=== PATIENT | female | born 1955 | race Caucasian/White ===

== ENCOUNTER → 2017-02-06 | Outpatient (CLI) | payer MEDICAID ==
[2016-03-12 05:44] VITALS: BP 136/66
== END ==
LOC: RAD 13:23
PROVIDERS: ATTEND Obstetrics & Gynecology Obstetrics
DX: Z12.31 Encounter for screening mammogram for malignant neoplasm of breast (principal)
CPT/HCPCS: 77067

== ENCOUNTER → 2017-03-30 | Outpatient (CLI) | payer MEDICAID ==
[2016-03-12 05:44] VITALS: BP 136/66
[2017-03-30 16:05] LABS: CREATININE,URINE 15.08 mg/dL (29-226); MICROALBUMIN,URINE 4.7 mg/L
[2017-03-30 16:24] LABS: ALANINE AMINOTRANSFERASE 20 Units/L (12-78); ALBUMIN 3.4 g/dL (3.4-5.0); ALKALINE PHOSPHATASE 89 Units/L (46-116); ASPARTATE AMINO TRANSFERASE 13 Units/L (15-37); BLOOD UREA NITROGEN 11 mg/dL (7-18); CALCIUM 8.8 mg/dL (8.5-10.1); CARBON DIOXIDE 27.2 mmol/L (21-32); CHLORIDE 105 mmol/L (98-107); CHOL/HDL RATIO 2.4 (0.0-5.0); CHOLESTEROL 137 mg/dL (0-200); CREATININE 0.97 mg/dL (0.55-1.02); GLUCOSE 95 mg/dL (65-99); HDL CHOLESTEROL 57 mg/dL (40-60); SODIUM 141 mmol/L (136-145); TOTAL PROTEIN 7.4 g/dL (6.4-8.2); TRIGLYCERIDES 94 mg/dL (0-150); eGFR BLACK RACES > 60 (>60); eGFR NON BLACK RACES > 60 (>60)
== END ==
LOC: LAB 15:25
PROVIDERS: ATTEND Obstetrics & Gynecology Obstetrics
DX: E11.9 Type 2 diabetes mellitus without complications (principal)
CPT/HCPCS: 36415; 80053; 80061; 82043; 83036

== ENCOUNTER → 2017-05-05 | Outpatient (CLI) | payer MEDICAID ==
[2016-03-12 05:44] VITALS: BP 136/66
--- NOTE | 2017-05-08 09:53 | MRI ---
HISTORY: Degenerative disc disease, radiculopathy Study: MRI lumbar spine without contrast Comparison: None Technique: Multiplanar multi-sequence MRI of the lumbar spine was obtained. Sagittal T1, sagittal T 2, and stir weighted images, axial T1, and axial T2 images were obtained. Findings: There is slight retrolisthesis L2 on L3. The lumbar spine demonstrates otherwise normal alignment wi th the expected signal characteristics of the bone marrow. The conus of the cord terminates normall y. T12 -- L1: There is a small central disc protrusion which is not significantly compressive. The neur al foramina are patent. The joints are normal. L1 -- L2: No evidence for compressive disc disease. The neural foramina are patent. The joints are n ormal. L2 -- L3: There is marked disc degeneration with slight retrolisthesis L2 on L3. This contributes al yobany with broad-based disc bulging, bilateral facet arthropathy to lateral recess and foraminal narro wing bilaterally left worse than right. L3 -- L4: Mild concentric disc bulging effaces the thecal sac and contributes to lateral recess and foraminal narrowing bilaterally left worse than right. L4 -- L5: No evidence for compressive disc disease. The neural foramina are patent. Mild bilateral f acet arthropathy is present. L5 -- S1: A dense for compressive disc disease. The neural foramina are patent. Mild bilateral facet arthropathy is present. IMPRESSION: As above Reported By:
== END ==
LOC: RAD 14:56
PROVIDERS: ATTEND Obstetrics & Gynecology Obstetrics
DX: M51.16 Intervertebral disc disorders with radiculopathy, lumbar region (principal)
CPT/HCPCS: 72148

== ENCOUNTER 2017-11-03 15:33 | Inpatient (IN) | payer MEDICAID ==
[2017-11-03] MEDS ORDERED: NS 1000 ML 1,000 ML ONE (15:55)
[2017-11-03] MEDS ORDERED: NS 1000 ML 1,000 ML IV ONE (16:04)
--- NOTE | 2017-11-03 16:04 | DR.GENAD ---
HPI - PCP Primary Care Physician: STEFANI - HPI Comment HPI Comment: PATIENT SUDDENLY BECAME FLUSH AT HOME AND FELT SHE WILL PASS OUT. HER ABDOMEN WAS HURTING AND WHEN SHE GOT TO THE BATHROOM, SHE FELL AND ALMOST FAINTED. BP LOW IN ED. - Complaint/Symptoms Chief Complaint Doctors Comments: DIZZINESS, HEADACHE AND LOW BLOOD PRESSURE. FELL AT HOME AND NEARLY FAINTED. Chief Complaint:: PATIENT STATED THAT SHE WAS AT HOME MAKING OUT A GROCERY LIST AND WENT TO STAND UP TO GO TO THE RESTROOM AND SHE FELT HER WHOLE BODY GO WARM LIKE A HOT FLASH. SHE STATED THAT WHEN SHE GOT TO RESTROOM EVERYTHING WAS SPINNING SHE WAS SO DIZZY THAT SHE FELL OVER INTO THE BATHROOM. AFTER THIS SHE HAS BEEN UNABLE TO CONTROL HER BOWEL MOVEMENTS. - Nurses notes reviewed Nurses Notes Review: Yes - Source History Provided: EMS - Mode of Arrival Mode of Arrival: EMS - Timing Onset of Chief Complaint: 11/03/17 Came on: Suddenly - Duration Duration: Constant Duration: Hours - Severity Severity: Moderate PMH - PMH Past Medical History: Yes Past Medical History: CHF, COPD, Diabetes, GERD, Hypertension, Hypothyroidism Past Surgical History: Yes Surgical History: Hysterectomy - Family History History of Family Medical Conditions: No - Social History Does patient currently use any type of tobacco product: Yes Have you used tobacco products in the last 12 months: Yes Type of Tobacco Use: Cigarettes Does any household member use tobacco: No Alcohol Use: None Do you use any recreational Drugs:: No Lives With: Family Lives Where: Home - infectious screening In the last 2 months have you had wt loss of >10#?: NO Have you had fever, night sweats or hemotysis?: No Have you traveled outside the country in the last 6 months?: No Isolation: Standard ROS - Review of Systems Constitutional: Weakness, Fatigue. negative: Chills, Fever Eyes: Blurred Vision. negative: Eye Pain ENTM: negative: Ear Pain, Nose Discharge, Nose Congestion, Throat Pain Respiratoy: Short of Breath (ON EXERTION). negative: Productive Cough, Wheezing , Hemoptysis Cardiovascular: Chest Pain Gastrointestinal/Abdominal: Abdominal Pain Genitourinary: negative: Dysuria, Frequency, Hematuria Neurological: Headache, Weakness, Dizziness Integumentary: Change in Color Hematologic/Lymphatic: No Symptoms Reported Endocrine: No Symptoms Reported All Other Systems: Reviewed and Negative PE - Vital Signs Vitals: Temperature 97.9 F Pulse Rate [Right Brachial] 70 Pulse Rate 66 Respiratory Rate 20 Blood Pressure [Left Arm] 93/52 Blood Pressure [Right Arm] 123/63 Blood Pressure 96/54 O2 Sat by Pulse Oximetry 99 - General Limitations: No Limitations General Appearance: Alert - Head Head Exam: Normal Inspection - Eyes Eye exam: Normal Appearance - ENT ENT Exam: Normal External Ear Exam External Ear Exam: Normal External Inspection TM/Canal Exam: Bilateral Normal Nose Exam: Normal Nose Exam Mouth Exam: Normal Inspection Throat Exam: Normal Inspection - Neck Neck Exam: Normal Inspection - Chest Chest Inspection: Symmetric Chest Wall Rise - Respiratory Respiratory Exam: Normal Lung Sounds Bilat Respiratory Exam: Bilateral Wheezing, Bilateral Rhonchi, Lower Wheezing, Lower Rhonchi - Cardiovascular Cardiovascular Exam: Regular Rate, Normal Rhythm, Normal Heart Sounds - Abdominal Exam Abdominal Exam: Normal Bowel Sounds, Soft, Tenderness Abdominal Tenderness: Diffuse, Moderate - Back Back Exam: Normal Inspection - Neurologic Neurological Exam: Alert, Oriented X3 - Psychiatric Psychiatric Exam: Normal Affect, Normal Mood - Skin Skin Exam: Erythema MDM - Differential Diagnosis Differential Diagnosis: HYPOTENSION, CHEST PAIN, ABDOMINAL PAIN, Course - Treatment Treatment: SEE ORDERS. IV FLUIDS IN ED. BP IMPROVE. - Reevaluation 1st: Improved - Education/Counseling Education/Counseling: Patient, Education Educated On: Treatment, Diagnosis ROR - Labs Reviewed Laboratory Results Reviewed?: Yes Result Diagrams: 11/06/17 05:41 11/06/17 05:41 Laboratory: WBC 13.0 X10^3/uL (3.6-10.0) H 11/03/17 16:11 RBC 4.19 X10^6/uL (3.5-5.4) 11/03/17 16:11 Hgb 12.3 g/dL (12.0-16.0) 11/03/17 16:11 Hct 37.4 % (36.0-47.0) 11/03/17 16:11 MCV 89.2 fL (80.0-100.0) 11/03/17 16:11 MCH 29.3 pg (27.0-34.0) 11/03/17 16:11 MCHC 32.8 g/dL (33.0-35.0) L 11/03/17 16:11 RDW 15.6 % (11.6-16.5) 11/03/17 16:11 Plt Count 310 X10^3/uL (150.0-450.0) 11/03/17 16:11 MPV 8.5 fL (7.4-11.0) 11/03/17 16:11 Neut % 69.0 % (42.0-75.0) 11/03/17 16:11 Lymph % 20.3 % (21.0-51.0) L 11/03/17 16:11 Waldo % 7.1 % (0.0-13.0) 11/03/17 16:11 Eos % 2.4 % (0.9-2.9) 11/03/17 16:11 Baso % 1.2 % (0.2-1.0) H 11/03/17 16:11 Neut # 9.0 x10^3/uL (2.2-4.8) H 11/03/17 16:11 Lymph # 2.6 X10^3/uL (1.3-2.9) 11/03/17 16:11 Waldo # 0.9 x10^3/uL (0.3-0.8) H 11/03/17 16:11 Eos # 0.3 x10^3/uL (0.0-0.2) H 11/03/17 16:11 Baso # 0.2 X10^3/uL (0.0-0.1) H 11/03/17 16:11 Absolute Nucleated RBC 0.0 /100WBC 11/03/17 16:11 Sodium 142 mmol/L (136-145) 11/03/17 16:11 Corrected Sodium 143 mmol/L (136-145) 11/03/17 16:11 Potassium 4.0 mmol/L (3.5-5.1) 11/03/17 16:11 Chloride 109 mmol/L (98-107) H 11/03/17 16:11 Carbon Dioxide 26.0 mmol/L (21-32) 11/03/17 16:11 BUN 23 mg/dL (7-18) H 11/03/17 16:11 Creatinine 0.95 mg/dL (0.55-1.02) 11/03/17 16:11 Est GFR (MDRD) Af Amer > 60 (>60) 11/03/17 16:11 Est GFR (MDRD) Non-Af > 60 (>60) 11/03/17 16:11 Glucose 122 mg/dL (65-99) H 11/03/17 16:11 Calcium 8.3 mg/dL (8.5-10.1) L 11/03/17 16:11 Corrected Calcium 9.0 mg/dL (8.5-10.1) 11/03/17 16:11 Total Bilirubin 0.20 mg/dL (0.2-1.0) 11/03/17 16:11 AST 15 Units/L (15-37) 11/03/17 16:11 ALT 26 Units/L (12-78) 11/03/17 16:11 Alkaline Phosphatase 77 Units/L (46-116) 11/03/17 16:11 Creatine Kinase 40 Units/L (26-192) 11/03/17 16:11 CK-MB (CK-2) < 1.0 ng/mL (0-4.0) 11/03/17 16:11 CK/CKMB % Calc 2.5 % (<4) 11/03/17 16:11 Troponin I < 0.02 ng/mL (0-1.5) 11/03/17 16:11 Total Protein 6.4 g/dL (6.4-8.2) 11/03/17 16:11 Albumin 3.1 g/dL (3.4-5.0) L 11/03/17 16:11 Globulin 3.3 g/dL (2.5-4.5) 11/03/17 16:11 Albumin/Globulin Ratio 0.9 Ratio (1.1-2.1) L 11/03/17 16:11 Amylase 89 Units/L (25-115) 11/03/17 16:11 Lipase 550 Units/L (73-393) H 11/03/17 16:11 - XRAY XRAY Interpreted by: Radiologist XRAY Findings: REPORT DISCUSS WITH PATIENT. - EKG [place]: Normal (EKG NOTED) - Diagnosis Discharge Problem: Pulmonary congestion Chest pain Qualifiers: Chest pain type: intercostal pain Qualified Code(s): R07.82 - Intercostal pain Hypotension Qualifiers: Hypotension type: unspecified hypotension type Qualified Code(s): I95.9 - Hypotension, unspecified Abdominal pain Qualifiers: Abdominal location: generalized Qualified Code(s): R10.84 - Generalized abdominal pain - Discharge Plan Disposition: ADMITTED INPATIENT Condition: Stable - Follow ups/Referrals - Instructions
[2017-11-03 16:21] LABS: BASOPHILS # (AUTO) 0.2 X10^3/uL (0.0-0.1); BASOPHILS % (AUTO) 1.2 % (0.2-1.0); EOSINOPHILS # (AUTO) 0.3 x10^3/uL (0.0-0.2); EOSINOPHILS % (AUTO) 2.4 % (0.9-2.9); HEMATOCRIT 37.4 % (36.0-47.0); HEMOGLOBIN 12.3 g/dL (12.0-16.0); LYMPHOCYTES # (AUTO) 2.6 X10^3/uL (1.3-2.9); LYMPHOCYTES % (AUTO) 20.3 % (21.0-51.0); MEAN CORPUSCULAR HEMOGLOBIN 29.3 pg (27.0-34.0); MEAN CORPUSCULAR HGB CONC 32.8 g/dL (33.0-35.0); MEAN CORPUSCULAR VOLUME 89.2 fL (80.0-100.0); MEAN PLATELET VOLUME 8.5 fL (7.4-11.0); MONOCYTES # (AUTO) 0.9 x10^3/uL (0.3-0.8); MONOCYTES % (AUTO) 7.1 % (0.0-13.0); PLATELET COUNT 310 X10^3/uL (150.0-450.0); RED BLOOD COUNT 4.19 X10^6/uL (3.5-5.4); RED CELL DISTRIBUTION WIDTH 15.6 % (11.6-16.5)
[2017-11-03 16:36] LABS: BLOOD UREA NITROGEN 23 mg/dL (7-18); CALCIUM 8.3 mg/dL (8.5-10.1); CHLORIDE 109 mmol/L (98-107); COR NA(FOR HYPERGLY) 143 mmol/L (136-145); CREATININE 0.95 mg/dL (0.55-1.02); SODIUM 142 mmol/L (136-145); TROPONIN I < 0.02 ng/mL (0-1.5); eGFR BLACK RACES > 60 (>60); eGFR NON BLACK RACES > 60 (>60)
[2017-11-03 16:40] LABS: ALANINE AMINOTRANSFERASE 26 Units/L (12-78); ALBUMIN 3.1 g/dL (3.4-5.0); ALKALINE PHOSPHATASE 77 Units/L (46-116); AMYLASE 89 Units/L (25-115); ASPARTATE AMINO TRANSFERASE 15 Units/L (15-37); CKMB % 2.5 % (<4); CREATINE KINASE 40 Units/L (26-192); CREATINE KINASE MB < 1.0 ng/mL (0-4.0); LIPASE 550 Units/L (73-393); TOTAL PROTEIN 6.4 g/dL (6.4-8.2)
--- NOTE | 2017-11-03 17:19 | CT ---
History: Syncope and altered mental status Study: CT head without contrast. Sagittal and coronal reformations were provided. Comparison: January 15, 2015 Findings: There is no significant change. The ventricles and sulci are of normal size and configurati on. There is no intracranial hemorrhage or mass or edema and there is no subdural collection of fluid . The mastoid sinuses and visualized paranasal sinuses are grossly clear. Impression: No acute intracranial disease Reported By:
--- NOTE | 2017-11-03 17:25 | CT ---
History: Abdominal pain Study: CT of the abdomen and pelvis without contrast. Sagittal and coronal reformations were provided . Comparison: None Findings: The visualized lung bases are clear. The liver and spleen and pancreas are unremarkable. Th ere is low-attenuation enlargement of the adrenal glands. The gallbladder surgically absent. There ar e several punctate bilateral renal calculi. There is no hydronephrosis. There is a small cyst in the upper pole of the left kidney. The appendix appears normal. There is a graft in the left common iliac vein. There is no ascites or adenopathy or aneurysm. The uterus is apparently absent. There is no ad nexal mass. The urinary bladder is unremarkable. There are degenerative changes of the upper lumbar s pine. Impression: 1. Probable adrenal hyperplasia 2. No acute abdominal disease demonstrated Reported By:
--- NOTE | 2017-11-03 17:25 | CT ---
CT CHEST WITHOUT IV CONTRAST HISTORY: Syncope and chest pain Comparison: None Technique: Multiple axial images of the chest were obtained from the thoracic inlet to the upper abdo men. Dose reduction techniques including Automated Exposure Control (AEC) and adjustment of mA and kV were utlized. Findings: The evaluation of the mediastinal structures is diminished without the use of IV contrast. The heart is normal in size. Trace pericardial fusion. Shotty mediastinal lymph nodes that are not n ecessarily pathologic. ; There is complete atelectasis of the right upper lobe secondary to endobronchial obstruction of the r ight upper lobe bronchus best seen on series 6, image 44 with abrupt cut off. There is hyper attenuat ing material within the atelectatic lung possibly representing calcification. Airways are otherwise p atent. 2.7 x 2.2 cm left lower lobe nodule on series 3, image 40. No aggressive osseous lesions. IMPRESSION: 1. Endobronchial obstruction of the right upper lobe bronchus resulting in complete atelectasis of t he right upper lobe. This is difficult to further evaluate the absence of intravenous contrast but pa tient will prior bronchoscopy to evaluate for possible obstructing mass. 2. Large left lower lobe pulmonary nodule. Malignancy cannot be excluded especially in the presence o f finding in impression point 1. Reported By:
[2017-11-03] MEDS ORDERED: DILAUDID INJ ONE (18:13)
[2017-11-03 19:48] LABS: BILIRUBIN,URINE NEGATIVE (NEGATIVE); BLOOD/HEMOGLOBIN,URINE NEGATIVE (NEGATIVE); GLUCOSE, URINE NEGATIVE (NEGATIVE); KETONES,URINE NEGATIVE (NEGATIVE); LEUKOCYTE ESTERASE ,URINE NEGATIVE (NEGATIVE); NITRITES,URINE NEGATIVE (NEGATIVE); PROTEIN,URINE NEGATIVE (NEGATIVE); UROBILINOGEN,URINE NORMAL (NORMAL)
[2017-11-03 19:55] LABS: APPEARANCE,URINE CLEAR (CLEAR); BACTERIA,URINE NEGATIVE /HPF (NEGATIVE); COLOR,URINE PALE YELLOW (YELLOW); RBC,URINE 0-3 /HPF (NEGATIVE); SQUAMOUS EPITHELIAL CELL,UR RARE /HPF (NEGATIVE)
[2017-11-03] MEDS: NS 1000 ML 1,000 ML IV SCH (20:05)
[2017-11-04 00:16] LABS: CKMB % 2.4 % (<4); CREATINE KINASE 41 Units/L (26-192); CREATINE KINASE MB < 1.0 ng/mL (0-4.0); TROPONIN I < 0.02 ng/mL (0-1.5)
[2017-11-04 00:21] VITALS: BMI 25.0
[2017-11-04 06:15] LABS: BASOPHILS % (AUTO) 0.3 % (0.2-1.0); EOSINOPHILS # (AUTO) 0.4 x10^3/uL (0.0-0.2); EOSINOPHILS % (AUTO) 2.4 % (0.9-2.9); HEMATOCRIT 35.2 % (36.0-47.0); HEMOGLOBIN 11.6 g/dL (12.0-16.0); LYMPHOCYTES # (AUTO) 4.8 X10^3/uL (1.3-2.9); LYMPHOCYTES % (AUTO) 32.9 % (21.0-51.0); MEAN CORPUSCULAR HEMOGLOBIN 29.3 pg (27.0-34.0); MEAN CORPUSCULAR HGB CONC 33.1 g/dL (33.0-35.0); MEAN CORPUSCULAR VOLUME 88.5 fL (80.0-100.0); MEAN PLATELET VOLUME 9.1 fL (7.4-11.0); MONOCYTES # (AUTO) 1.1 x10^3/uL (0.3-0.8); MONOCYTES % (AUTO) 7.6 % (0.0-13.0); NEUTROPHILS # (AUTO) 8.3 x10^3/uL (2.2-4.8); NEUTROPHILS % (AUTO) 56.8 % (42.0-75.0); PLATELET COUNT 310 X10^3/uL (150.0-450.0); RED BLOOD COUNT 3.98 X10^6/uL (3.5-5.4); RED CELL DISTRIBUTION WIDTH 15.4 % (11.6-16.5); WHITE BLOOD COUNT 14.6 X10^3/uL (3.6-10.0)
[2017-11-04 06:38] LABS: ALANINE AMINOTRANSFERASE 26 Units/L (12-78); ALKALINE PHOSPHATASE 75 Units/L (46-116); ASPARTATE AMINO TRANSFERASE 19 Units/L (15-37); BLOOD UREA NITROGEN 22 mg/dL (7-18); CALCIUM 8.3 mg/dL (8.5-10.1); CARBON DIOXIDE 21.5 mmol/L (21-32); CHLORIDE 112 mmol/L (98-107); CHOL/HDL RATIO 2.8 (0.0-5.0); CHOLESTEROL 146 mg/dL (0-200); COR CA(FOR HYPOALB) 9.1 mg/dL (8.5-10.1); CREATININE 0.89 mg/dL (0.55-1.02); HDL CHOLESTEROL 52 mg/dL (40-60); MAGNESIUM 1.9 mg/dL (1.7-2.9); SODIUM 143 mmol/L (136-145); TOTAL PROTEIN 6.2 g/dL (6.4-8.2); TRIGLYCERIDES 79 mg/dL (0-150); eGFR BLACK RACES > 60 (>60); eGFR NON BLACK RACES > 60 (>60)
[2017-11-04 06:53] LABS: CREATINE KINASE 53 Units/L (26-192); CREATINE KINASE MB < 1.0 ng/mL (0-4.0); TROPONIN I < 0.02 ng/mL (0-1.5)
[2017-11-04 06:55] LABS: CKMB % 1.9 % (<4)
[2017-11-04] MEDS: NS 1000 ML 1,000 ML IV SCH (10:00)
[2017-11-04] MEDS ORDERED: PROVENTIL NEB TX 0.083% 2.5MG/ 3ML NEB PRN (21:50)
[2017-11-04] MEDS ORDERED: NS 1000 ML 1,000 ML IV SCH (22:00)
[2017-11-04] MEDS ORDERED: ATARAX TAB 25 MG PO PRN (22:50)
[2017-11-04] MEDS ORDERED: ANTIVERT TAB 25 MG PO PRN (22:51)
[2017-11-04] MEDS ORDERED: NS 250 ML IV 250 ML IV ONE (23:11)
[2017-11-04] MEDS: LIPITOR TAB 20 MG PO SCH (23:17)
[2017-11-04] MEDS: ZANAFLEX PO PRN (23:18)
[2017-11-04] MEDS: ZANTAC PO SCH (23:19)
[2017-11-04] MEDS: COUMADIN TAB 5 MG PO SCH (23:19)
[2017-11-04] MEDS: COUMADIN TAB 2 MG PO SCH (23:19)
[2017-11-04] MEDS: MERREM VIAL 1,000 MG in NS 100 ML IV 100 ML IV SCH (23:20)
[2017-11-04] MEDS: TOPAMAX TAB 100 MG PO SCH (23:22)
[2017-11-05] MEDS ORDERED: SALINE 3% 15 ML NEB TX ONE (00:18)
[2017-11-05] MEDS: XOPENEX 1.25 MG/3 ML NEBULE NEB SCH ×4 (00:25→17:41)
[2017-11-05] MEDS ORDERED: NS 100 ML IV + SPIKE MINIBAG* 100 ML IV ONE (05:19)
[2017-11-05] MEDS: MERREM VIAL 1,000 MG in NS 100 ML IV 100 ML IV SCH ×2 (05:40→21:30)
[2017-11-05 06:14] LABS: BASOPHILS # (AUTO) 0.3 X10^3/uL (0.0-0.1); BASOPHILS % (AUTO) 2.7 % (0.2-1.0); EOSINOPHILS # (AUTO) 0.3 x10^3/uL (0.0-0.2); EOSINOPHILS % (AUTO) 2.5 % (0.9-2.9); HEMATOCRIT 37.3 % (36.0-47.0); HEMOGLOBIN 12.2 g/dL (12.0-16.0); LYMPHOCYTES # (AUTO) 4.7 X10^3/uL (1.3-2.9); MEAN CORPUSCULAR HEMOGLOBIN 29.3 pg (27.0-34.0); MEAN CORPUSCULAR HGB CONC 32.8 g/dL (33.0-35.0); MEAN CORPUSCULAR VOLUME 89.5 fL (80.0-100.0); MEAN PLATELET VOLUME 9.4 fL (7.4-11.0); MONOCYTES % (AUTO) 7.7 % (0.0-13.0); NEUTROPHILS # (AUTO) 6.3 x10^3/uL (2.2-4.8); NEUTROPHILS % (AUTO) 50.1 % (42.0-75.0); PLATELET COUNT 301 X10^3/uL (150.0-450.0); RED BLOOD COUNT 4.17 X10^6/uL (3.5-5.4); RED CELL DISTRIBUTION WIDTH 16.1 % (11.6-16.5); WHITE BLOOD COUNT 12.6 X10^3/uL (3.6-10.0)
[2017-11-05 06:26] LABS: ALANINE AMINOTRANSFERASE 26 Units/L (12-78); ALBUMIN 2.9 g/dL (3.4-5.0); ALKALINE PHOSPHATASE 71 Units/L (46-116); ASPARTATE AMINO TRANSFERASE 15 Units/L (15-37); BLOOD UREA NITROGEN 16 mg/dL (7-18); CALCIUM 8.2 mg/dL (8.5-10.1); CARBON DIOXIDE 21.2 mmol/L (21-32); CHLORIDE 113 mmol/L (98-107); COR CA(FOR HYPOALB) 9.1 mg/dL (8.5-10.1); CREATININE 0.95 mg/dL (0.55-1.02); SODIUM 144 mmol/L (136-145); TOTAL PROTEIN 6.2 g/dL (6.4-8.2); eGFR BLACK RACES > 60 (>60); eGFR NON BLACK RACES > 60 (>60)
--- NOTE | 2017-11-05 09:47 | CT ---
CT CHEST WITH IV CONTRAST HISTORY: Endobronchial obstruction of right upper lobe Comparison: CT chest 11/03/2017 Technique: Multiple axial images of the chest were obtained from the thoracic inlet to the upper abdo men after the administration of IV contrast.Dose reduction techniques including Automated Exposure Co ntrol (AEC) and adjustment of mA and kV were utlized. Findings: The heart is normal in size. No pericardial effusion. re-demonstration of shotty mediastinal lymph n odes. Although not optimized to detect pulmonary embolism, no large central pulmonary emboli are seen . Redemonstrated is complete atelectasis of the right upper lobe secondary to abrupt cut off of the rig ht upper lobe bronchus. This is suspected to be from endobronchial obstructing lesion. . Redemonstrat ion of left lower lobe lung nodule measuring 2.7 cm. Limited images of the upper abdomen are unremarkable. No aggressive osseous lesions. IMPRESSION: 1. Redemonstration of obstruction of the right upper lobe bronchus with complete atelectasis of the right upper lobe. Again, endobronchial lesion is suspected in and bronchoscopy is recommended. 2. Stable appearance of left lower lobe pulmonary nodule which is concerning for malignancy in the se tting of endobronchial lesion. Reported By:
[2017-11-05] MEDS: TOPAMAX TAB 100 MG PO SCH ×2 (10:16→20:37)
[2017-11-05] MEDS: MOBIC TAB 15 MG PO SCH (10:16)
[2017-11-05] MEDS: ZANTAC PO SCH ×2 (10:16→20:37)
[2017-11-05] MEDS: SYNTHROID 25 mcg TAB PO SCH (10:17)
[2017-11-05] MEDS: ZOLOFT PO SCH (10:17)
[2017-11-05] MEDS ORDERED: NICOTINE PATCH TD SCH (12:00)
[2017-11-05] MEDS: ZANAFLEX PO PRN (20:37)
[2017-11-05] MEDS: LIPITOR TAB 20 MG PO SCH (20:37)
[2017-11-05] MEDS: COUMADIN TAB 2 MG PO SCH ×2 (20:39→20:53)
[2017-11-05] MEDS: COUMADIN TAB 5 MG PO SCH ×2 (20:40→20:54)
[2017-11-05] MEDS ORDERED: SINGULAIR TAB 10 MG PO SCH (21:00)
[2017-11-06] MEDS: XOPENEX 1.25 MG/3 ML NEBULE NEB SCH ×3 (01:02→11:43)
[2017-11-06] MEDS: MERREM VIAL 1,000 MG in NS 100 ML IV 100 ML IV SCH ×2 (05:16→13:32)
[2017-11-06 06:26] LABS: BASOPHILS # (AUTO) 0.4 X10^3/uL (0.0-0.1); BASOPHILS % (AUTO) 3.3 % (0.2-1.0); EOSINOPHILS # (AUTO) 0.4 x10^3/uL (0.0-0.2); EOSINOPHILS % (AUTO) 3.1 % (0.9-2.9); HEMATOCRIT 33.1 % (36.0-47.0); HEMOGLOBIN 11.1 g/dL (12.0-16.0); LYMPHOCYTES # (AUTO) 4.6 X10^3/uL (1.3-2.9); LYMPHOCYTES % (AUTO) 34.7 % (21.0-51.0); MEAN CORPUSCULAR HEMOGLOBIN 29.8 pg (27.0-34.0); MEAN CORPUSCULAR HGB CONC 33.6 g/dL (33.0-35.0); MEAN CORPUSCULAR VOLUME 88.6 fL (80.0-100.0); MEAN PLATELET VOLUME 9.2 fL (7.4-11.0); MONOCYTES % (AUTO) 7.2 % (0.0-13.0); NEUTROPHILS # (AUTO) 6.8 x10^3/uL (2.2-4.8); NEUTROPHILS % (AUTO) 51.7 % (42.0-75.0); PLATELET COUNT 279 X10^3/uL (150.0-450.0); RED BLOOD COUNT 3.73 X10^6/uL (3.5-5.4); RED CELL DISTRIBUTION WIDTH 15.9 % (11.6-16.5); WHITE BLOOD COUNT 13.2 X10^3/uL (3.6-10.0)
[2017-11-06 06:30] LABS: ALANINE AMINOTRANSFERASE 25 Units/L (12-78); ALBUMIN 2.8 g/dL (3.4-5.0); ALKALINE PHOSPHATASE 71 Units/L (46-116); ASPARTATE AMINO TRANSFERASE 14 Units/L (15-37); BLOOD UREA NITROGEN 16 mg/dL (7-18); CALCIUM 8.4 mg/dL (8.5-10.1); CARBON DIOXIDE 21.7 mmol/L (21-32); CHLORIDE 114 mmol/L (98-107); COR CA(FOR HYPOALB) 9.4 mg/dL (8.5-10.1); CREATININE 0.78 mg/dL (0.55-1.02); SODIUM 145 mmol/L (136-145); TOTAL PROTEIN 5.9 g/dL (6.4-8.2); eGFR BLACK RACES > 60 (>60); eGFR NON BLACK RACES > 60 (>60)
[2017-11-06] MEDS: SYNTHROID 25 mcg TAB PO SCH (07:52)
[2017-11-06] MEDS: ZOLOFT PO SCH (08:14)
[2017-11-06] MEDS: MOBIC TAB 15 MG PO SCH (08:14)
[2017-11-06] MEDS: TOPAMAX TAB 100 MG PO SCH (08:15)
[2017-11-06] MEDS: ZANTAC PO SCH (08:15)
--- NOTE | 2017-11-06 11:02 | PCM.PEDH&P ---
Pediatric History & Physical - Allergies Allergies/Adverse Reactions: Allergies Allergy/AdvReac Type Severity Reaction Status Date / Time aspirin Allergy ANAPHALEXIS Verified 11/03/17 18:10 REACTION azithromycin [From Zithromax] Allergy Verified 11/03/17 18:09 ciprofloxacin [From Cipro] Allergy Verified 11/03/17 18:09 morphine Allergy Verified 11/03/17 18:09 Penicillins Allergy Verified 11/03/17 18:09 - Social History Smoking Status: Current every day smoker Does patient currently use any type of tobacco product: Yes Have you used tobacco products in the last 12 months: Yes Type of Tobacco Use: Cigarettes How many years tobacco product used: 51 Does any household member use tobacco: Yes Alcohol Use: None Do you use any recreational Drugs:: No - Medications Home Medications: Azelastine HCl [Astelin Nasal [place]] 1 spray XX Q8H PRN 11/03/17 [History Confirmed 11/03/17] Hydroxyzine HCl 1 tab PO Q6H PRN 11/03/17 [History Confirmed 11/03/17] Meloxicam 1 tab PO DAILY 11/03/17 [History Confirmed 11/03/17] Promethazine HCl 0.5 - 1 tab PO PRN PRN 11/03/17 [History Confirmed 11/03/17] Ramipril [ALTACE 5 MG *] 1 tab PO DAILY 11/03/17 [History Confirmed 11/03/17] Trazodone HCl 1 - 2 tab PO HS PRN 11/03/17 [History Confirmed 11/03/17] Colesevelam HCl [WELCHOL 625 MG *] 6 tabs PO DAILY 11/04/17 [History Confirmed 11/04/17] - Physical Exam Vital Signs: Temperature 97.7 F Pulse Rate [Right Brachial] 72 Pulse Rate 58 Respiratory Rate 23 Blood Pressure [Left Arm] 93/52 Blood Pressure [Right Arm] 132/63 Blood Pressure 96/54 O2 Sat by Pulse Oximetry 97
[2017-11-06 16:30] VITALS: BP 120/72
== END 2017-11-06 18:40 | disposition home or self-care (01) | DRG 315 ==
LOC: ER 15:36 → ICU 18:50 → OBS 18:50 → OBSVTOIN 11-04 20:30 → INTOOBSV 11-04 22:13 → UNDODISIN 11-06 18:40
PROVIDERS: ADMIT Internal Medicine; ATTEND Obstetrics & Gynecology Obstetrics
DX: I95.89 Other hypotension (principal); J98.11 Atelectasis; J44.1 Chronic obstructive pulmonary disease with (acute) exacerbation; R55 Syncope and collapse; R10.84 Generalized abdominal pain; R07.82 Intercostal pain; R51 Headache; R42 Dizziness and giddiness; R94.31 Abnormal electrocardiogram [ECG] [EKG]; R91.1 Solitary pulmonary nodule; R79.1 Abnormal coagulation profile; Z72.0 Tobacco use
CPT/HCPCS: 36415; 70450; 71250; 71260; 74176; 80053; 80061; 81001; 82150; 82550; 82553; 83690; 83735; 84484; 85025; 85610; 85730; 87070; 87205; 93005; 93010; 94640; 96365; 96367; 99221; 99231; 99284; A4222; G0378; J2185

== ENCOUNTER → 2017-11-22 | Outpatient (CLI) | payer MEDICAID ==
[2017-11-06 16:30] VITALS: BP 120/72
[2017-11-22 09:55] LABS: BASOPHILS # (AUTO) 0.2 X10^3/uL (0.0-0.1); BASOPHILS % (AUTO) 1.4 % (0.2-1.0); EOSINOPHILS # (AUTO) 0.6 x10^3/uL (0.0-0.2); HEMATOCRIT 39.5 % (36.0-47.0); HEMOGLOBIN 12.9 g/dL (12.0-16.0); LYMPHOCYTES # (AUTO) 3.2 X10^3/uL (1.3-2.9); LYMPHOCYTES % (AUTO) 27.9 % (21.0-51.0); MEAN CORPUSCULAR HEMOGLOBIN 29.3 pg (27.0-34.0); MEAN CORPUSCULAR HGB CONC 32.8 g/dL (33.0-35.0); MEAN CORPUSCULAR VOLUME 89.5 fL (80.0-100.0); MEAN PLATELET VOLUME 8.5 fL (7.4-11.0); MONOCYTES % (AUTO) 8.2 % (0.0-13.0); NEUTROPHILS # (AUTO) 6.7 x10^3/uL (2.2-4.8); NEUTROPHILS % (AUTO) 57.5 % (42.0-75.0); PLATELET COUNT 343 X10^3/uL (150.0-450.0); RED BLOOD COUNT 4.41 X10^6/uL (3.5-5.4); RED CELL DISTRIBUTION WIDTH 15.5 % (11.6-16.5); WHITE BLOOD COUNT 11.6 X10^3/uL (3.6-10.0)
[2017-11-22 10:10] LABS: ALANINE AMINOTRANSFERASE 20 Units/L (12-78); ALBUMIN 3.1 g/dL (3.4-5.0); ALKALINE PHOSPHATASE 80 Units/L (46-116); ASPARTATE AMINO TRANSFERASE 12 Units/L (15-37); BILIRUBIN,DIRECT 0.05 mg/dL (0-0.2); BLOOD UREA NITROGEN 20 mg/dL (7-18); CALCIUM 8.3 mg/dL (8.5-10.1); CARBON DIOXIDE 24.8 mmol/L (21-32); CHLORIDE 109 mmol/L (98-107); CREATININE 0.98 mg/dL (0.55-1.02); SODIUM 141 mmol/L (136-145); TOTAL PROTEIN 6.7 g/dL (6.4-8.2); eGFR BLACK RACES > 60 (>60); eGFR NON BLACK RACES > 60 (>60)
== END ==
LOC: LAB 09:29
PROVIDERS: ATTEND Internal Medicine Hematology & Oncology
DX: R91.8 Other nonspecific abnormal finding of lung field (principal)
CPT/HCPCS: 36415; 80048; 80076; 85025

== ENCOUNTER → 2017-12-05 | Outpatient (CLI) | payer MEDICAID ==
[2017-11-06 16:30] VITALS: BP 120/72
[2017-12-05 10:19] LABS: BASOPHILS # (AUTO) 0.2 X10^3/uL (0.0-0.1); BASOPHILS % (AUTO) 2.1 % (0.2-1.0); EOSINOPHILS # (AUTO) 0.4 x10^3/uL (0.0-0.2); EOSINOPHILS % (AUTO) 3.9 % (0.9-2.9); HEMATOCRIT 37.7 % (36.0-47.0); HEMOGLOBIN 12.4 g/dL (12.0-16.0); LYMPHOCYTES # (AUTO) 3.5 X10^3/uL (1.3-2.9); LYMPHOCYTES % (AUTO) 32.4 % (21.0-51.0); MEAN CORPUSCULAR HEMOGLOBIN 29.4 pg (27.0-34.0); MEAN CORPUSCULAR VOLUME 89.3 fL (80.0-100.0); MEAN PLATELET VOLUME 8.1 fL (7.4-11.0); MONOCYTES # (AUTO) 0.9 x10^3/uL (0.3-0.8); MONOCYTES % (AUTO) 8.7 % (0.0-13.0); NEUTROPHILS # (AUTO) 5.6 x10^3/uL (2.2-4.8); NEUTROPHILS % (AUTO) 52.9 % (42.0-75.0); PLATELET COUNT 323 X10^3/uL (150.0-450.0); RED BLOOD COUNT 4.23 X10^6/uL (3.5-5.4); RED CELL DISTRIBUTION WIDTH 15.8 % (11.6-16.5); WHITE BLOOD COUNT 10.7 X10^3/uL (3.6-10.0)
[2017-12-05 10:34] LABS: ALANINE AMINOTRANSFERASE 21 Units/L (12-78); ALBUMIN 3.2 g/dL (3.4-5.0); ALKALINE PHOSPHATASE 83 Units/L (46-116); ASPARTATE AMINO TRANSFERASE 12 Units/L (15-37); BLOOD UREA NITROGEN 27 mg/dL (7-18); CALCIUM 8.4 mg/dL (8.5-10.1); CARBON DIOXIDE 26.9 mmol/L (21-32); CHLORIDE 109 mmol/L (98-107); COR NA(FOR HYPERGLY) 144 mmol/L (136-145); CREATININE 1.13 mg/dL (0.55-1.02); SODIUM 143 mmol/L (136-145); TOTAL PROTEIN 6.6 g/dL (6.4-8.2); eGFR BLACK RACES > 60 (>60); eGFR NON BLACK RACES 52 (>60)
== END ==
LOC: LAB 10:01
PROVIDERS: ATTEND Internal Medicine Hematology & Oncology
DX: R91.8 Other nonspecific abnormal finding of lung field (principal)
CPT/HCPCS: 36415; 80053; 85025

== ENCOUNTER → 2017-12-19 | Outpatient (CLI) | payer MEDICAID ==
[2017-12-19 10:29] LABS: BASOPHILS # (AUTO) 0.3 X10^3/uL (0.0-0.1); BASOPHILS % (AUTO) 2.3 % (0.2-1.0); EOSINOPHILS # (AUTO) 0.5 x10^3/uL (0.0-0.2); EOSINOPHILS % (AUTO) 4.2 % (0.9-2.9); HEMATOCRIT 39.6 % (36.0-47.0); HEMOGLOBIN 13.1 g/dL (12.0-16.0); LYMPHOCYTES # (AUTO) 3.6 X10^3/uL (1.3-2.9); LYMPHOCYTES % (AUTO) 33.1 % (21.0-51.0); MEAN CORPUSCULAR HEMOGLOBIN 29.5 pg (27.0-34.0); MEAN CORPUSCULAR HGB CONC 33.2 g/dL (33.0-35.0); MEAN PLATELET VOLUME 8.3 fL (7.4-11.0); MONOCYTES # (AUTO) 0.9 x10^3/uL (0.3-0.8); MONOCYTES % (AUTO) 8.3 % (0.0-13.0); NEUTROPHILS # (AUTO) 5.7 x10^3/uL (2.2-4.8); NEUTROPHILS % (AUTO) 52.1 % (42.0-75.0); PLATELET COUNT 333 X10^3/uL (150.0-450.0); RED BLOOD COUNT 4.45 X10^6/uL (3.5-5.4); RED CELL DISTRIBUTION WIDTH 15.8 % (11.6-16.5)
[2017-12-19 10:35] LABS: BLOOD UREA NITROGEN 21 mg/dL (7-18); CALCIUM 8.9 mg/dL (8.5-10.1); CARBON DIOXIDE 25.5 mmol/L (21-32); CHLORIDE 109 mmol/L (98-107); CREATININE 0.99 mg/dL (0.55-1.02); SODIUM 142 mmol/L (136-145); eGFR BLACK RACES > 60 (>60); eGFR NON BLACK RACES > 60 (>60)
== END ==
LOC: LAB 10:05
DX: R91.8 Other nonspecific abnormal finding of lung field (principal)
CPT/HCPCS: 36415; 80048; 85025; 93005; 93010

== ENCOUNTER → 2018-01-04 | Outpatient (CLI) | payer MEDICAID ==
[2018-01-04 09:55] LABS: BASOPHILS # (AUTO) 0.1 X10^3/uL (0.0-0.1); BASOPHILS % (AUTO) 1.4 % (0.2-1.0); EOSINOPHILS # (AUTO) 0.5 x10^3/uL (0.0-0.2); EOSINOPHILS % (AUTO) 5.4 % (0.9-2.9); HEMATOCRIT 38.7 % (36.0-47.0); HEMOGLOBIN 12.9 g/dL (12.0-16.0); LYMPHOCYTES % (AUTO) 30.6 % (21.0-51.0); MEAN CORPUSCULAR HEMOGLOBIN 29.4 pg (27.0-34.0); MEAN CORPUSCULAR HGB CONC 33.4 g/dL (33.0-35.0); MEAN CORPUSCULAR VOLUME 88.1 fL (80.0-100.0); MEAN PLATELET VOLUME 8.2 fL (7.4-11.0); MONOCYTES # (AUTO) 0.9 x10^3/uL (0.3-0.8); MONOCYTES % (AUTO) 9.4 % (0.0-13.0); NEUTROPHILS # (AUTO) 5.2 x10^3/uL (2.2-4.8); NEUTROPHILS % (AUTO) 53.2 % (42.0-75.0); PLATELET COUNT 393 X10^3/uL (150.0-450.0); RED BLOOD COUNT 4.39 X10^6/uL (3.5-5.4); RED CELL DISTRIBUTION WIDTH 14.4 % (11.6-16.5); WHITE BLOOD COUNT 9.7 X10^3/uL (3.6-10.0)
[2018-01-04 09:59] LABS: ALANINE AMINOTRANSFERASE 20 Units/L (12-78); ALBUMIN 3.2 g/dL (3.4-5.0); ALKALINE PHOSPHATASE 92 Units/L (46-116); ASPARTATE AMINO TRANSFERASE 13 Units/L (15-37); BLOOD UREA NITROGEN 19 mg/dL (7-18); CALCIUM 8.6 mg/dL (8.5-10.1); CARBON DIOXIDE 28.9 mmol/L (21-32); CHLORIDE 107 mmol/L (98-107); COR CA(FOR HYPOALB) 9.2 mg/dL (8.5-10.1); COR NA(FOR HYPERGLY) 144 mmol/L (136-145); CREATININE 1.03 mg/dL (0.55-1.02); SODIUM 143 mmol/L (136-145); TOTAL PROTEIN 7.6 g/dL (6.4-8.2); eGFR BLACK RACES > 60 (>60); eGFR NON BLACK RACES 57 (>60)
== END ==
LOC: LAB 09:30
PROVIDERS: ATTEND Internal Medicine Hematology & Oncology
DX: C34.91 Malignant neoplasm of unspecified part of right bronchus or lung (principal)
CPT/HCPCS: 36415; 80053; 85025

== ENCOUNTER → 2018-01-10 | Outpatient (CLI) | payer MEDICAID ==
[2018-01-10 10:06] LABS: BASOPHILS # (AUTO) 0.1 X10^3/uL (0.0-0.1); BASOPHILS % (AUTO) 1.1 % (0.2-1.0); EOSINOPHILS # (AUTO) 0.3 x10^3/uL (0.0-0.2); EOSINOPHILS % (AUTO) 3.6 % (0.9-2.9); HEMATOCRIT 36.2 % (36.0-47.0); HEMOGLOBIN 12.1 g/dL (12.0-16.0); LYMPHOCYTES # (AUTO) 2.3 X10^3/uL (1.3-2.9); LYMPHOCYTES % (AUTO) 25.2 % (21.0-51.0); MEAN CORPUSCULAR HEMOGLOBIN 29.8 pg (27.0-34.0); MEAN CORPUSCULAR HGB CONC 33.6 g/dL (33.0-35.0); MEAN CORPUSCULAR VOLUME 88.8 fL (80.0-100.0); MEAN PLATELET VOLUME 8.5 fL (7.4-11.0); MONOCYTES # (AUTO) 0.4 x10^3/uL (0.3-0.8); MONOCYTES % (AUTO) 3.8 % (0.0-13.0); NEUTROPHILS # (AUTO) 6.1 x10^3/uL (2.2-4.8); NEUTROPHILS % (AUTO) 66.3 % (42.0-75.0); PLATELET COUNT 387 X10^3/uL (150.0-450.0); RED BLOOD COUNT 4.07 X10^6/uL (3.5-5.4); RED CELL DISTRIBUTION WIDTH 14.8 % (11.6-16.5); WHITE BLOOD COUNT 9.2 X10^3/uL (3.6-10.0)
[2018-01-10 10:22] LABS: ALANINE AMINOTRANSFERASE 19 Units/L (12-78); ALKALINE PHOSPHATASE 80 Units/L (46-116); ASPARTATE AMINO TRANSFERASE 11 Units/L (15-37); BLOOD UREA NITROGEN 19 mg/dL (7-18); CALCIUM 8.3 mg/dL (8.5-10.1); CARBON DIOXIDE 28.1 mmol/L (21-32); CHLORIDE 109 mmol/L (98-107); COR CA(FOR HYPOALB) 9.1 mg/dL (8.5-10.1); COR NA(FOR HYPERGLY) 144 mmol/L (136-145); CREATININE 0.97 mg/dL (0.55-1.02); SODIUM 143 mmol/L (136-145); TOTAL PROTEIN 6.6 g/dL (6.4-8.2); eGFR BLACK RACES > 60 (>60); eGFR NON BLACK RACES > 60 (>60)
== END ==
LOC: LAB 09:29
PROVIDERS: ATTEND Internal Medicine Hematology & Oncology
DX: C34.91 Malignant neoplasm of unspecified part of right bronchus or lung (principal)
CPT/HCPCS: 36415; 80053; 85025

== ENCOUNTER → 2018-01-17 | Outpatient (CLI) | payer MEDICAID ==
[2018-01-17 11:12] LABS: BASOPHILS # (AUTO) 0.1 X10^3/uL (0.0-0.1); BASOPHILS % (AUTO) 1.2 % (0.2-1.0); EOSINOPHILS # (AUTO) 0.2 x10^3/uL (0.0-0.2); EOSINOPHILS % (AUTO) 2.4 % (0.9-2.9); HEMOGLOBIN 12.2 g/dL (12.0-16.0); LYMPHOCYTES # (AUTO) 1.4 X10^3/uL (1.3-2.9); LYMPHOCYTES % (AUTO) 21.8 % (21.0-51.0); MEAN CORPUSCULAR HEMOGLOBIN 29.4 pg (27.0-34.0); MEAN CORPUSCULAR VOLUME 89.1 fL (80.0-100.0); MEAN PLATELET VOLUME 8.9 fL (7.4-11.0); MONOCYTES # (AUTO) 0.3 x10^3/uL (0.3-0.8); MONOCYTES % (AUTO) 3.9 % (0.0-13.0); NEUTROPHILS # (AUTO) 4.6 x10^3/uL (2.2-4.8); NEUTROPHILS % (AUTO) 70.7 % (42.0-75.0); PLATELET COUNT 357 X10^3/uL (150.0-450.0); RED BLOOD COUNT 4.16 X10^6/uL (3.5-5.4); RED CELL DISTRIBUTION WIDTH 14.9 % (11.6-16.5); WHITE BLOOD COUNT 6.6 X10^3/uL (3.6-10.0)
[2018-01-17 11:30] LABS: ALANINE AMINOTRANSFERASE 24 Units/L (12-78); ALBUMIN 3.4 g/dL (3.4-5.0); ALKALINE PHOSPHATASE 82 Units/L (46-116); ASPARTATE AMINO TRANSFERASE 15 Units/L (15-37); BLOOD UREA NITROGEN 20 mg/dL (7-18); CALCIUM 8.2 mg/dL (8.5-10.1); CARBON DIOXIDE 28.1 mmol/L (21-32); CHLORIDE 109 mmol/L (98-107); CREATININE 0.91 mg/dL (0.55-1.02); SODIUM 144 mmol/L (136-145); TOTAL PROTEIN 7.2 g/dL (6.4-8.2); eGFR BLACK RACES > 60 (>60); eGFR NON BLACK RACES > 60 (>60)
== END ==
LOC: LAB 10:44
PROVIDERS: ATTEND Internal Medicine Hematology & Oncology
DX: C34.91 Malignant neoplasm of unspecified part of right bronchus or lung (principal)
CPT/HCPCS: 36415; 80053; 85025

== ENCOUNTER → 2018-01-24 | Outpatient (CLI) | payer MEDICAID ==
[2018-01-24 10:43] LABS: BASOPHILS # (AUTO) 0.1 X10^3/uL (0.0-0.1); BASOPHILS % (AUTO) 1.1 % (0.2-1.0); EOSINOPHILS # (AUTO) 0.1 x10^3/uL (0.0-0.2); EOSINOPHILS % (AUTO) 1.3 % (0.9-2.9); HEMATOCRIT 36.3 % (36.0-47.0); HEMOGLOBIN 11.9 g/dL (12.0-16.0); LYMPHOCYTES # (AUTO) 1.4 X10^3/uL (1.3-2.9); LYMPHOCYTES % (AUTO) 24.2 % (21.0-51.0); MEAN CORPUSCULAR HEMOGLOBIN 29.1 pg (27.0-34.0); MEAN CORPUSCULAR HGB CONC 32.7 g/dL (33.0-35.0); MEAN CORPUSCULAR VOLUME 88.8 fL (80.0-100.0); MEAN PLATELET VOLUME 8.6 fL (7.4-11.0); MONOCYTES # (AUTO) 0.3 x10^3/uL (0.3-0.8); MONOCYTES % (AUTO) 5.9 % (0.0-13.0); NEUTROPHILS # (AUTO) 3.9 x10^3/uL (2.2-4.8); NEUTROPHILS % (AUTO) 67.5 % (42.0-75.0); PLATELET COUNT 262 X10^3/uL (150.0-450.0); RED BLOOD COUNT 4.08 X10^6/uL (3.5-5.4); WHITE BLOOD COUNT 5.8 X10^3/uL (3.6-10.0)
[2018-01-24 10:52] LABS: ALANINE AMINOTRANSFERASE 23 Units/L (12-78); ALBUMIN 3.4 g/dL (3.4-5.0); ALKALINE PHOSPHATASE 77 Units/L (46-116); ASPARTATE AMINO TRANSFERASE 11 Units/L (15-37); BLOOD UREA NITROGEN 22 mg/dL (7-18); CALCIUM 8.2 mg/dL (8.5-10.1); CARBON DIOXIDE 27.6 mmol/L (21-32); CHLORIDE 109 mmol/L (98-107); COR NA(FOR HYPERGLY) 145 mmol/L (136-145); CREATININE 1.05 mg/dL (0.55-1.02); SODIUM 144 mmol/L (136-145); TOTAL PROTEIN 6.8 g/dL (6.4-8.2); eGFR BLACK RACES > 60 (>60); eGFR NON BLACK RACES 56 (>60)
== END ==
LOC: LAB 10:18
PROVIDERS: ATTEND Internal Medicine Hematology & Oncology
DX: C34.91 Malignant neoplasm of unspecified part of right bronchus or lung (principal)
CPT/HCPCS: 36415; 80053; 85025

== ENCOUNTER → 2018-01-31 | Outpatient (CLI) | payer MEDICAID ==
[2018-01-31 12:07] LABS: BASOPHILS # (AUTO) 0.1 X10^3/uL (0.0-0.1); BASOPHILS % (AUTO) 1.2 % (0.2-1.0); EOSINOPHILS # (AUTO) 0.1 x10^3/uL (0.0-0.2); EOSINOPHILS % (AUTO) 1.5 % (0.9-2.9); HEMOGLOBIN 11.9 g/dL (12.0-16.0); LYMPHOCYTES # (AUTO) 0.9 X10^3/uL (1.3-2.9); LYMPHOCYTES % (AUTO) 15.8 % (21.0-51.0); MEAN CORPUSCULAR HEMOGLOBIN 29.7 pg (27.0-34.0); MEAN CORPUSCULAR HGB CONC 33.1 g/dL (33.0-35.0); MEAN CORPUSCULAR VOLUME 89.7 fL (80.0-100.0); MONOCYTES # (AUTO) 0.3 x10^3/uL (0.3-0.8); MONOCYTES % (AUTO) 4.7 % (0.0-13.0); NEUTROPHILS # (AUTO) 4.2 x10^3/uL (2.2-4.8); NEUTROPHILS % (AUTO) 76.8 % (42.0-75.0); PLATELET COUNT 142 X10^3/uL (150.0-450.0); RED BLOOD COUNT 4.01 X10^6/uL (3.5-5.4); RED CELL DISTRIBUTION WIDTH 15.2 % (11.6-16.5); WHITE BLOOD COUNT 5.4 X10^3/uL (3.6-10.0)
[2018-01-31 12:40] LABS: ALANINE AMINOTRANSFERASE 25 Units/L (12-78); ALBUMIN 3.4 g/dL (3.4-5.0); ALKALINE PHOSPHATASE 80 Units/L (46-116); ASPARTATE AMINO TRANSFERASE 16 Units/L (15-37); BLOOD UREA NITROGEN 20 mg/dL (7-18); CALCIUM 8.5 mg/dL (8.5-10.1); CARBON DIOXIDE 27.2 mmol/L (21-32); CHLORIDE 105 mmol/L (98-107); COR NA(FOR HYPERGLY) 139 mmol/L (136-145); CREATININE 1.09 mg/dL (0.55-1.02); SODIUM 137 mmol/L (136-145); eGFR BLACK RACES > 60 (>60); eGFR NON BLACK RACES 54 (>60)
== END ==
LOC: LAB 11:49
PROVIDERS: ATTEND Internal Medicine Hematology & Oncology
DX: C34.91 Malignant neoplasm of unspecified part of right bronchus or lung (principal)
CPT/HCPCS: 36415; 80053; 85025

== ENCOUNTER → 2018-02-21 | Outpatient (CLI) | payer MEDICAID ==
[~2018-02-21] MED LIST: NS 100 ML IV 100 ML IV ONE
[2018-02-21 09:10] LABS: BASOPHILS # (AUTO) 0.1 X10^3/uL (0.0-0.1); BASOPHILS % (AUTO) 3.9 % (0.2-1.0); EOSINOPHILS % (AUTO) 1.4 % (0.9-2.9); HEMATOCRIT 31.2 % (36.0-47.0); HEMOGLOBIN 10.6 g/dL (12.0-16.0); LYMPHOCYTES # (AUTO) 0.9 X10^3/uL (1.3-2.9); LYMPHOCYTES % (AUTO) 35.8 % (21.0-51.0); MEAN CORPUSCULAR HEMOGLOBIN 30.7 pg (27.0-34.0); MEAN CORPUSCULAR VOLUME 90.3 fL (80.0-100.0); MEAN PLATELET VOLUME 8.2 fL (7.4-11.0); MONOCYTES # (AUTO) 0.4 x10^3/uL (0.3-0.8); MONOCYTES % (AUTO) 15.9 % (0.0-13.0); NEUTROPHILS # (AUTO) 1.1 x10^3/uL (2.2-4.8); PLATELET COUNT 267 X10^3/uL (150.0-450.0); RED BLOOD COUNT 3.46 X10^6/uL (3.5-5.4); RED CELL DISTRIBUTION WIDTH 16.9 % (11.6-16.5); WHITE BLOOD COUNT 2.5 X10^3/uL (3.6-10.0)
[2018-02-21 09:34] LABS: HEMOGLOBIN A1C 6.4 %
[2018-02-21 09:41] LABS: ALANINE AMINOTRANSFERASE 22 Units/L (12-78); ALBUMIN 3.3 g/dL (3.4-5.0); ALKALINE PHOSPHATASE 81 Units/L (46-116); ASPARTATE AMINO TRANSFERASE 25 Units/L (15-37); BLOOD UREA NITROGEN 18 mg/dL (7-18); CALCIUM 8.5 mg/dL (8.5-10.1); CARBON DIOXIDE 28.4 mmol/L (21-32); CHLORIDE 108 mmol/L (98-107); CHOL/HDL RATIO 2.5 (0.0-5.0); CHOLESTEROL 121 mg/dL (0-200); COR CA(FOR HYPOALB) 9.1 mg/dL (8.5-10.1); CREATININE 1.05 mg/dL (0.55-1.02); HDL CHOLESTEROL 48 mg/dL (40-60); SODIUM 142 mmol/L (136-145); TOTAL PROTEIN 7.2 g/dL (6.4-8.2); TRIGLYCERIDES 67 mg/dL (0-150); TSH (3RD GENERATION) 4.678 uIU/mL (0.358-3.74); eGFR BLACK RACES > 60 (>60); eGFR NON BLACK RACES 56 (>60)
--- NOTE | 2018-02-21 12:46 | MG ---
HISTORY: SCREENING Comparison: 02/06/2017 FINDINGS: Bilateral CC and MLO projections of the right and left breast were obtained. Scattered fibroglandula r tissue is seen to be present. No significant architectural distortion, mass or clustered microcalc ifications can be observed to suggest malignancy. No skin thickening or nipple retraction is appreci ated. No pathological lymphadenopathy can be identified. Benign-appearing calcifications scattered throughout the right and left breasts are observed. IMPRESSION: NO RADIOGRAPHIC EVIDENCE OF MALIGNANCY. ACR CATEGORY 2 - benign findings. FOLLOW-UP EXAM 1 YEAR. Diagnostic CAD was utilized and reviewed. * 0 (ZERO) - ASSESSMENT INCOMPLETE; ADDITIONAL IMAGING IS NEEDED. * 1/ (ONE) - NEGATIVE. * 2/II (TWO) - BENIGN FINDINGS. * 3/III (THREE) - PROBABLY BENIGN FINDING; SHORT INTERVAL FOLLOW-UP SUGGESTED. * 4/IV (FOUR) - SUSPICIOUS ABNORMALITY; BIOPSY SHOULD BE CONSIDERED. * 5/V - HIGHLY SUSPICIOUS OF MALIGNANCY; BIOPSY SHOULD BE PERFORMED. A NEGATIVE X-RAY REPORT SHOULD NOT DELAY BIOPSY IF A DOMINANT OR CLINICALLY SUSPICIOUS MASS IS PRESENT; 4 TO 8 PERCENT OF CANCERS ARE NOT IDENTIFIED BY X-RAY. A NEGA TIVE REPORT MAY REINFORCE THE CLINICAL IMPRESSION. ADENOSIS AND DENSE BREASTS MAY OBSCURE AN UNDERLY ING NEOPLASM. Reported By:
--- NOTE | 2018-02-21 13:54 | CT ---
CTA abdomen and pelvis with bilateral lower extremity runoff Indication: Peripheral vascular disease Technique: Helical CT images of the abdomen and pelvis were obtained without and with IV contrast wit h bilateral lower extremity runoff. Reformatted images in the coronal and sagittal planes and 3D MIP images of the arterial vasculature were also generated for review. Comparison: CT abdomen and pelvis 11/03/17 Findings: Non CTA findings: Lung bases are clear. No aggressive osseous lesions are identified. Noncontrast images are unremarkable. The gallbladder is surgically absent. Within the limits of an ar terial phase exam, the liver, spleen, pancreas, and kidneys are unremarkable. There is stable thicken ing of the bilateral adrenal glands without discrete nodule identified, again suggestive for hyperpla jessie. Mild sigmoid diverticulosis is present without evidence for acute diverticulitis. There is no edwina wel is obstruction. The appendix is normal. The bladder is normal. The uterus is absent. Small fat co ntaining bilateral hernias noted. A stent is present within the left common iliac vein. Evaluation fo r patency is limited due to arterial phase imaging. No free air, free fluid or lymphadenopathy is nell ntified. CTA findings: The celiac axis and its branches, SMA, single right and duplicate left renal arteries a nd MARLO are widely patent. There is mild calcification of the infrarenal abdominal aorta and bilateral iliofemoral systems without aneurysm, dissection or occlusion. Right lower extremity: There is minimal calcification of the [employer]. The profunda femoris is widely caballero nt. The distal SFA is mildly calcified without significant stenosis. The popliteal and peroneal arter y are widely patent. There is normal two-vessel runoff to the right foot, with the anterior tibial ar evelia continuing to supply the DPA and the posterior tibial artery continuing as the plantar arch bran ches. Left lower extremity: The [employer], profunda femoris, SFA and popliteal arteries are widely patent without significant calcification or flow limiting stenosis. The arteries of the left lower leg are widely p atent with normal two-vessel runoff to the left foot, the anterior tibial artery continuing as the DP A and the posterior tibial artery supplying the plantar arch branches. Impression: Very mild peripheral vascular disease of the right lower extremity with otherwise normal 2 vessel run off to the bilateral feet, as detailed above. See above report for additional incidental findings. Reported By:
== END ==
LOC: RAD 08:22
PROVIDERS: ATTEND Obstetrics & Gynecology Obstetrics
DX: Z12.31 Encounter for screening mammogram for malignant neoplasm of breast (principal); I73.9 Peripheral vascular disease, unspecified; E11.9 Type 2 diabetes mellitus without complications; E03.8 Other specified hypothyroidism; E78.2 Mixed hyperlipidemia; C34.11 Malignant neoplasm of upper lobe, right bronchus or lung
CPT/HCPCS: 36415; 73706; 77067; 80053; 80061; 83036; 84443; 85025; A4222

== ENCOUNTER → 2018-03-15 | Outpatient (CLI) | payer MEDICAID ==
[2018-03-15 14:10] LABS: BASOPHILS # (AUTO) 0.1 X10^3/uL (0.0-0.1); BASOPHILS % (AUTO) 1.1 % (0.2-1.0); EOSINOPHILS # (AUTO) 0.2 x10^3/uL (0.0-0.2); EOSINOPHILS % (AUTO) 2.7 % (0.9-2.9); HEMATOCRIT 35.6 % (36.0-47.0); LYMPHOCYTES # (AUTO) 1.4 X10^3/uL (1.3-2.9); LYMPHOCYTES % (AUTO) 24.7 % (21.0-51.0); MEAN CORPUSCULAR HEMOGLOBIN 31.5 pg (27.0-34.0); MEAN CORPUSCULAR HGB CONC 33.8 g/dL (33.0-35.0); MEAN CORPUSCULAR VOLUME 93.2 fL (80.0-100.0); MEAN PLATELET VOLUME 7.4 fL (7.4-11.0); MONOCYTES # (AUTO) 0.7 x10^3/uL (0.3-0.8); MONOCYTES % (AUTO) 12.7 % (0.0-13.0); NEUTROPHILS # (AUTO) 3.3 x10^3/uL (2.2-4.8); NEUTROPHILS % (AUTO) 58.8 % (42.0-75.0); PLATELET COUNT 95 X10^3/uL (150.0-450.0); RED BLOOD COUNT 3.82 X10^6/uL (3.5-5.4); RED CELL DISTRIBUTION WIDTH 23.3 % (11.6-16.5); WHITE BLOOD COUNT 5.6 X10^3/uL (3.6-10.0)
[2018-03-15 14:31] LABS: ALANINE AMINOTRANSFERASE 22 Units/L (12-78); ALBUMIN 3.6 g/dL (3.4-5.0); ALKALINE PHOSPHATASE 100 Units/L (46-116); ASPARTATE AMINO TRANSFERASE 12 Units/L (15-37); BLOOD UREA NITROGEN 17 mg/dL (7-18); CALCIUM 8.1 mg/dL (8.5-10.1); CARBON DIOXIDE 25.2 mmol/L (21-32); CHLORIDE 107 mmol/L (98-107); COR NA(FOR HYPERGLY) 142 mmol/L (136-145); CREATININE 0.91 mg/dL (0.55-1.02); PLATELET MORPHOLOGY COMMENT NORMAL (NORMAL); SODIUM 141 mmol/L (136-145); TOTAL PROTEIN 7.6 g/dL (6.4-8.2); TSH (3RD GENERATION) 2.805 uIU/mL (0.358-3.74); eGFR BLACK RACES > 60 (>60); eGFR NON BLACK RACES > 60 (>60)
[2018-03-15 14:32] LABS: ANISOCYTOSIS 2+
[2018-03-17 20:50] LABS: HEPATITIS A ANTIBODY IGM Negative (Negative)
[2018-03-18 11:25] LABS: HEPATITIS B CORE IGM Negative (Negative); HEPATITIS B SURFACE ANTIGEN Negative (Negative)
[2018-03-19 13:21] LABS: T3 REVERSE 12.5 ng/dL (9.0-27.0)
== END ==
LOC: LAB 13:47
PROVIDERS: ATTEND Nurse Practitioner Family
DX: E03.8 Other specified hypothyroidism (principal); C34.91 Malignant neoplasm of unspecified part of right bronchus or lung; R53.81 Other malaise
CPT/HCPCS: 36415; 80053; 80074; 84443; 84481; 84482; 85025

== ENCOUNTER 2019-06-15 16:12 | Inpatient (IN) ==
[~2019-06-15 16:12] MED LIST changes: +NITROSTAT SL PRN; -NS 100 ML IV 100 ML IV ONE
[2019-06-15] MEDS ORDERED: NS 1000 ML 1,000 ML ONE ×2 (16:17→20:26)
[2019-06-15] MEDS ORDERED: NITROSTAT ONE (16:27)
[2019-06-15 16:30] LABS: BASOPHILS # (AUTO) 0.1 X10^3/uL (0.0-0.1); BASOPHILS % (AUTO) 0.9 % (0.2-1.0); EOSINOPHILS # (AUTO) 0.3 x10^3/uL (0.0-0.2); HEMATOCRIT 41.3 % (36.0-47.0); HEMOGLOBIN 13.5 g/dL (12.0-16.0); LYMPHOCYTES # (AUTO) 4.3 X10^3/uL (1.3-2.9); LYMPHOCYTES % (AUTO) 33.3 % (21.0-51.0); MEAN CORPUSCULAR HEMOGLOBIN 30.2 pg (27.0-34.0); MEAN CORPUSCULAR HGB CONC 32.7 g/dL (33.0-35.0); MEAN CORPUSCULAR VOLUME 92.4 fL (80.0-100.0); MEAN PLATELET VOLUME 7.6 fL (7.4-11.0); MONOCYTES # (AUTO) 1.3 x10^3/uL (0.3-0.8); MONOCYTES % (AUTO) 10.4 % (0.0-13.0); NEUTROPHILS # (AUTO) 6.9 x10^3/uL (2.2-4.8); NEUTROPHILS % (AUTO) 53.4 % (42.0-75.0); PLATELET COUNT 342 X10^3/uL (150.0-450.0); RED BLOOD COUNT 4.46 X10^6/uL (3.5-5.4); RED CELL DISTRIBUTION WIDTH 16.4 % (11.6-16.5); WHITE BLOOD COUNT 12.9 X10^3/uL (3.6-10.0)
[2019-06-15 16:45] LABS: BILIRUBIN,URINE NEGATIVE (NEGATIVE); BLOOD/HEMOGLOBIN,URINE NEGATIVE (NEGATIVE); GLUCOSE, URINE NEGATIVE (NEGATIVE); KETONES,URINE NEGATIVE (NEGATIVE); LEUKOCYTE ESTERASE ,URINE NEGATIVE (NEGATIVE); NITRITES,URINE NEGATIVE (NEGATIVE); PH,URINE 6.5 (5.0 - 8.0); PROTEIN,URINE 1+ (NEGATIVE); UROBILINOGEN,URINE NORMAL (NORMAL)
--- NOTE | 2019-06-15 16:45 | RAD ---
Examination: AP chest History: Chest pain Comparison reference: Chest CT 11/05/2017 Findings: Normal heart size. Mild diffuse increase in interstitial pattern especially right upper lobe. No discrete mass, consolidation, hilar enlargement or pleural fluid. Surgical clips left axilla. Impression: Mild nonspecific interstitial pulmonary prominence. Essentially negative otherwise. Reported By:
[2019-06-15 16:48] LABS: BLOOD UREA NITROGEN 18 mg/dL (7-18); CALCIUM 9.1 mg/dL (8.5-10.1); CARBON DIOXIDE 23.3 mmol/L (21-32); CHLORIDE 106 mmol/L (98-107); COR NA(FOR HYPERGLY) 141 mmol/L (136-145); CREATININE 1.12 mg/dL (0.55-1.02); SODIUM 140 mmol/L (136-145); TROPONIN I < 0.02 ng/mL (0-1.5); eGFR NON BLACK RACES 52 (>60)
[2019-06-15 16:52] LABS: ALANINE AMINOTRANSFERASE 19 Units/L (12-78); ALBUMIN 3.5 g/dL (3.4-5.0); ALKALINE PHOSPHATASE 111 Units/L (46-116); ASPARTATE AMINO TRANSFERASE 12 Units/L (15-37); CKMB % 3.1 % (<4); CREATINE KINASE 32 Units/L (26-192); CREATINE KINASE MB < 1.0 ng/mL (0-4.0); MAGNESIUM 1.9 mg/dL (1.7-2.9); TOTAL PROTEIN 7.1 g/dL (6.4-8.2)
[2019-06-15] MEDS ORDERED: NARCAN INJ IVP ONE (16:55)
[2019-06-15] MEDS ORDERED: XOPENEX 1.25 MG/3 ML NEBULE NEB ONE (16:58)
[2019-06-15] MEDS ORDERED: XOPENEX 1.25 MG/3 ML NEBULE ONE (16:59)
--- NOTE | 2019-06-15 16:59 | CT ---
HISTORY: Altered mental status Study: CT brain without contrast Comparison: NONE AVAILABLE Technique: Multiple axial images of the brain were obtained from the skull base to the vertex without administration of IV contrast. Automated exposure control (AEC) was utilized to adjust the MA and/or kV according to patient size. Findings: There is no acute intracranial hemorrhage. The brain parenchyma is normal in density. No mass or mass effect. No abnormal extra-axial fluid collection. The ventricles are normal in size, shape and position. Basilar cisterns patent. Zarate matter -white matter interface is distinct. The bilateral mastoid air cells and included paranasal sinuses are predominantly clear. There is no acute osseous abnormality. IMPRESSION: 1. No acute intracranial process can be identified. Reported By:
[2019-06-15 17:00] LABS: APPEARANCE,URINE CLEAR (CLEAR); BACTERIA,URINE NEGATIVE /HPF (NEGATIVE); COLOR,URINE YELLOW (YELLOW); RBC,URINE 0-2 /HPF (0-3); SQUAMOUS EPITHELIAL CELL,UR RARE /HPF (NEGATIVE)
[2019-06-15] MEDS ORDERED: NITROSTAT SL PRN ×2 (17:06→20:45)
[2019-06-15] MEDS ORDERED: NARCAN INJ ONE (17:06)
--- NOTE | 2019-06-15 17:58 | DR.CP ---
HPI Time Seen Time Seen by Provider: 06/15/19 16:18 Complaint Chief Complaint Doctor Comments: A 64 y/o female who came in via EMS for chest tightness. Her daughter states she called EMS after pt. c/o chest tightness. Reportedly also seems with decreased mentation. She was diaphoretic on scene per EMS staff. Pt. states chest tightness but otherwise her hx. on this is not robust. Chief Complaint:: PT C/O CHEST PAIN AND SHORTNESS OF BREATH. PT BROUGHT IN PER EMS. PT NOTED TO BE DIAPHORETIC AND NOTED PT'S SPEECH TO BE GARBBLED SPEECH. PT DOES STATE THAT SHE HAS LUNG CA AND REC CHEMP TREATMENT. PT NOTED TO BE ALTERED. Reviewed Nurses Notes Review: Yes Source History Provided: Patient and EMS Mode of Arrival Mode of Arrival: EMS Timing Onset of Chief Complaint: 06/15/19 Context Cardiac Risk Factors: HTN and Diabetes PE Risk Factors: None History of: None Prehospital Care: Monitor and ASA Associated Signs and Symptoms Associated Signs and Symptoms: Diaphoresis PMH PMH Past Medical History: Yes Past Medical History: CHF, COPD, CVA, Diabetes, GERD, Hypertension and Hypothyroidism Past Surgical History: Yes Surgical History: Hysterectomy Family History History of Family Medical Conditions: Yes Family Medical History: Cancer Social History Does patient currently use any type of tobacco product: Yes Have you used tobacco products in the last 12 months: Yes Type of Tobacco Use: Cigarettes Does any household member use tobacco: Yes Alcohol Use: None Do you use any recreational Drugs:: No Lives With: Family Lives Where: Home infectious screening In the last 2 months have you had wt loss of >10#?: NO Have you had fever, night sweats or hemotysis?: No Have you traveled outside the country in the last 6 months?: No Isolation: Standard ROS Review of Systems Constitutional: No Symptoms Reported Eyes: No Symptoms Reported ENTM: No Symptoms Reported Respiratoy: No Symptoms Reported Cardiovascular: Chest Pain (tightness) Gastrointestinal/Abdominal: No Symptoms Reported Genitourinary: No Symptoms Reported Neurological: No Symptoms Reported Musculoskeletal: No Symptoms Reported Integumentary: No Symptoms Reported Hematologic/Lymphatic: No Symptoms Reported Endocrine: No Symptoms Reported Psychiatric: No Symptoms Reported PE Vitals Vitals: Temperature 98.0 F Pulse Rate 85 Respiratory Rate 19 Blood Pressure [Left Arm] 93/52 Blood Pressure [Right Arm] 120/72 Blood Pressure 181/85 O2 Sat by Pulse Oximetry 97 General Limitations: No Limitations General Appearance: Alert and In No Apparent Distress Head Head Exam: Normal Inspection, Atraumatic and Normocephalic Eyes Eye exam: Normal Appearance and EOMI ENT ENT Exam: Normal Oropharynx and Mucous Membranes Moist Chest Chest Inspection: Normal Inspection and Symmetric Chest Wall Rise Respiratory Respiratory Exam: Normal Lung Sounds Bilat Cardiovascular Cardiovascular Exam: Regular Rate, Normal Rhythm, Normal Heart Sounds, +S1 and +S2 Abdominal Exam Abdominal Exam: Normal Inspection, Normal Bowel Sounds and Soft Extremities Extremities Exam: Normal Inspection Back Back Exam: Normal Inspection Neurologic Neurological Exam: Other (She has decreased awakeness but is easily aroused. She is oriented to self and speaks/respondes with 1 or 2 words ) Psychiatric Psychiatric Exam: Flat Affect Skin Skin Exam: Dry and Diaphoresis MDM Differential Diagnosis Differential Diagnosis: Myocardial Infarction and Pulmonary Embolus COURSE Reevaluation 1st: Improved 2nd: Improved (Her mentation has improved, she is now able to give clearer picture of events. She remembers she complained to her daughter but does not recollect how she got to the hospital.) Education/Counseling Education/Counseling: Patient, Family, Education and Counseling Educated On: Treatment, Diagnosis, Prognosis and Needs for Follow Up ROR Labs Reviewed Laboratory Results Reviewed?: Yes Result Diagrams: 06/15/19 16:20 06/15/19 16:20 Laboratory: WBC 12.9 X10^3/uL (3.6-10.0) H 06/15/19 16:20 RBC 4.46 X10^6/uL (3.5-5.4) 06/15/19 16:20 Hgb 13.5 g/dL (12.0-16.0) 06/15/19 16:20 Hct 41.3 % (36.0-47.0) 06/15/19 16:20 MCV 92.4 fL (80.0-100.0) 06/15/19 16:20 MCH 30.2 pg (27.0-34.0) 06/15/19 16:20 MCHC 32.7 g/dL (33.0-35.0) L 06/15/19 16:20 RDW 16.4 % (11.6-16.5) 06/15/19 16:20 Plt Count 342 X10^3/uL (150.0-450.0) 06/15/19 16:20 MPV 7.6 fL (7.4-11.0) 06/15/19 16:20 Neut % (Auto) 53.4 % (42.0-75.0) 06/15/19 16:20 Lymph % (Auto) 33.3 % (21.0-51.0) 06/15/19 16:20 [place] % (Auto) 10.4 % (0.0-13.0) 06/15/19 16:20 Eos % (Auto) 2.0 % (0.9-2.9) 06/15/19 16:20 Baso % (Auto) 0.9 % (0.2-1.0) 06/15/19 16:20 Neut # (Auto) 6.9 x10^3/uL (2.2-4.8) H 06/15/19 16:20 Lymph # (Auto) 4.3 X10^3/uL (1.3-2.9) H 06/15/19 16:20 [place] # (Auto) 1.3 x10^3/uL (0.3-0.8) H 06/15/19 16:20 Eos # (Auto) 0.3 x10^3/uL (0.0-0.2) H 06/15/19 16:20 Baso # (Auto) 0.1 X10^3/uL (0.0-0.1) 06/15/19 16:20 Absolute Nucleated RBC 0.0 /100WBC 06/15/19 16:20 PT 12.4 SECONDS (11.8-14.3) 06/15/19 16:20 INR Target Range - 06/15/19 16:20 INR 0.96 (0.8-1.3) 06/15/19 16:20 APTT 20.7 SECONDS (22.9-36.5) L 06/15/19 16:20 PTT Comment - 06/15/19 16:20 D-Dimer 494 ng/mL (0-400) H* 06/15/19 16:20 Sodium 140 mmol/L (136-145) 06/15/19 16:20 Corrected Sodium 141 mmol/L (136-145) 06/15/19 16:20 Potassium 3.7 mmol/L (3.5-5.1) 06/15/19 16:20 Chloride 106 mmol/L (98-107) 06/15/19 16:20 Carbon Dioxide 23.3 mmol/L (21-32) 06/15/19 16:20 BUN 18 mg/dL (7-18) 06/15/19 16:20 Creatinine 1.12 mg/dL (0.55-1.02) H 06/15/19 16:20 Est GFR (MDRD) Af Amer > 60 (>60) 06/15/19 16:20 Est GFR (MDRD) Non-Af 52 (>60) L 06/15/19 16:20 Glucose 161 mg/dL (65-99) H 06/15/19 16:20 Calcium 9.1 mg/dL (8.5-10.1) 06/15/19 16:20 Corrected Calcium TNP 06/15/19 16:20 Magnesium 1.9 mg/dL (1.7-2.9) 06/15/19 16:20 Total Bilirubin 0.20 mg/dL (0.2-1.0) 06/15/19 16:20 AST 12 Units/L (15-37) L 06/15/19 16:20 ALT 19 Units/L (12-78) 06/15/19 16:20 Alkaline Phosphatase 111 Units/L (46-116) 06/15/19 16:20 Creatine Kinase 32 Units/L (26-192) 06/15/19 16:20 CK-MB (CK-2) < 1.0 ng/mL (0-4.0) 06/15/19 16:20 CK/CKMB % Calc 3.1 % (<4) 06/15/19 16:20 Troponin I < 0.02 ng/mL (0-1.5) 06/15/19 16:20 B-Natriuretic Peptide 13.9 pg/mL (0-79) 06/15/19 16:20 Total Protein 7.1 g/dL (6.4-8.2) 06/15/19 16:20 Albumin 3.5 g/dL (3.4-5.0) 06/15/19 16:20 Globulin 3.6 g/dL (2.5-4.5) 06/15/19 16:20 Albumin/Globulin Ratio 1.0 Ratio (1.1-2.1) L 06/15/19 16:20 Specimen Type Catherized urine 06/15/19 16:36 Urine Color Yellow (YELLOW) 06/15/19 16:36 Urine Appearance Clear (CLEAR) 06/15/19 16:36 Urine pH 6.5 (5.0 - 8.0) 06/15/19 16:36 Ur Specific [place] 1.010 (1.000-1.030) 06/15/19 16:36 Urine Protein 1+ (NEGATIVE) 06/15/19 16:36 Urine Glucose (UA) Negative (NEGATIVE) 06/15/19 16:36 Urine Ketones Negative (NEGATIVE) 06/15/19 16:36 Urine Occult Blood Negative (NEGATIVE) 06/15/19 16:36 Urine Nitrite Negative (NEGATIVE) 06/15/19 16:36 Urine Bilirubin Negative (NEGATIVE) 06/15/19 16:36 Urine Urobilinogen Normal (NORMAL) 06/15/19 16:36 Ur Leukocyte Esterase Negative (NEGATIVE) 06/15/19 16:36 Urine RBC 0-2 /HPF (0-3) 06/15/19 16:36 Urine WBC 0-2 /HPF (0-5) 06/15/19 16:36 Ur Squamous Epith Cells Rare /HPF (NEGATIVE) 06/15/19 16:36 Urine Bacteria Negative /HPF (NEGATIVE) 06/15/19 16:36 Ur Culture Indicated? No/not indicated 06/15/19 16:36 Urine Opiates Screen Negative (NEG=<300) 06/15/19 16:36 Urine Methadone Screen Negative (NEG=<300) 06/15/19 16:36 Ur Barbiturates Screen Negative (NEG=<200) 06/15/19 16:36 Ur Phencyclidine Scrn Negative (NEG=<25) 06/15/19 16:36 Ur Amphetamines Screen Negative (NEG=<1000) 06/15/19 16:36 U Benzodiazepines Scrn Negative (NEG=<200) 06/15/19 16:36 Urine Cocaine Screen Negative (NEG=<300) 06/15/19 16:36 U Marijuana (THC) Screen Negative (NEG=<50) 06/15/19 16:36 Other Results Comments: Radiologist report on CT Brain: No acute intracranial process identified. XRAY XRAY Interpreted by: Self XRAY Findings: normal CXR study. EKG Rate: 74 [place]: Normal Rhythm: NSR Block: None Hypertrophy: None ST: Normal Opioid Opioid Risk Tool Age (Jorge box if 16-45): No Total: 0 Total Score Risk Category: Low Risk Copyright: Jeremy BISHOP predicting aberrant behaviors Diagnosis Discharge Problem: Altered mental status Qualifiers: Altered mental status type: somnolence Qualified Code(s): R40.0 - Somnolence Instructions Forms: Excuse From Work
[2019-06-15] MEDS ORDERED: PEPCID TAB 20 MG PO ONE (19:01)
[2019-06-15] MEDS ORDERED: PEPCID TAB 20 MG ONE (19:02)
[2019-06-15] MEDS ORDERED: HumuLIN R SC PRN (19:31)
[2019-06-15] MEDS ORDERED: CATAPRES TAB 0.1 MG PO PRN (19:47)
[2019-06-15] MEDS: NS 1000 ML 1,000 ML IV SCH (20:37)
[2019-06-15] MEDS ORDERED: PROVENTIL NEB TX 0.083% 2.5MG/ 3ML NEB PRN (20:45)
[2019-06-15] MEDS ORDERED: PULMICORT NEB TX 0.5 MG ONE (20:47)
[2019-06-15] MEDS: PULMICORT NEB TX 0.5 MG NEB SCH (20:50)
[2019-06-15] MEDS ORDERED: PATIENT'S HOME MEDICATION (Fluticasone-Salmeterol 250/50 1 PUFF) IN SCH (21:00)
[2019-06-15] MEDS: GLUCOPHAGE XR PO SCH (21:09)
[2019-06-15] MEDS ORDERED: LEVSIN/MAALOX/LIDOC VISC PO ONE (21:42)
[2019-06-15] MEDS ORDERED: LEVSIN/MAALOX/LIDOC VISC ONE (21:58)
[2019-06-15] MEDS: TOPAMAX TAB 100 MG PO SCH (22:09)
[2019-06-15] MEDS: ZANTAC PO SCH (22:09)
[2019-06-15] MEDS: LIPITOR TAB 20 MG PO SCH (22:09)
[2019-06-15] MEDS: PROVENTIL NEB TX 0.083% 2.5MG/ 3ML NEB SCH (23:57)
[2019-06-16] MEDS ORDERED: PHENERGAN INJ 25 MG IM ONE (01:05)
[2019-06-16] MEDS: PHENERGAN INJ 25 MG IM PRN (01:44)
[2019-06-16] MEDS: NS 1000 ML 1,000 ML IV SCH ×3 (05:51→21:47)
--- NOTE | 2019-06-16 05:55 | RAD ---
KUB, 2 views. History: Abdominal pain Comparison: None Findings: Visualized lung bases are clear. Bowel gas pattern is nonspecific with relative paucity of bowel gas within the left abdomen. Cholecystectomy changes are present. No discrete free air. No suspicious calcifications are seen. Left iliac stent is present. No acute osseous findings. Conclusion: Nonspecific bowel gas pattern with relative paucity of bowel gas within the left abdomen. Findings may be seen with obstruction. Clinical correlation is recommended. Reported By:
[2019-06-16 06:34] LABS: BASOPHILS % (AUTO) 0.2 % (0.2-1.0); HEMATOCRIT 44.1 % (36.0-47.0); HEMOGLOBIN 14.6 g/dL (12.0-16.0); LYMPHOCYTES # (AUTO) 0.9 X10^3/uL (1.3-2.9); LYMPHOCYTES % (AUTO) 5.4 % (21.0-51.0); MEAN CORPUSCULAR HEMOGLOBIN 30.5 pg (27.0-34.0); MEAN CORPUSCULAR VOLUME 92.2 fL (80.0-100.0); MEAN PLATELET VOLUME 7.4 fL (7.4-11.0); MONOCYTES # (AUTO) 0.9 x10^3/uL (0.3-0.8); MONOCYTES % (AUTO) 5.8 % (0.0-13.0); NEUTROPHILS # (AUTO) 14.3 x10^3/uL (2.2-4.8); NEUTROPHILS % (AUTO) 88.6 % (42.0-75.0); PLATELET COUNT 294 X10^3/uL (150.0-450.0); RED BLOOD COUNT 4.78 X10^6/uL (3.5-5.4); RED CELL DISTRIBUTION WIDTH 16.4 % (11.6-16.5); WHITE BLOOD COUNT 16.1 X10^3/uL (3.6-10.0)
[2019-06-16 06:48] LABS: ALBUMIN 3.3 g/dL (3.4-5.0); CARBON DIOXIDE 22.8 mmol/L (21-32); CREATININE 1.21 mg/dL (0.55-1.02); TOTAL PROTEIN 6.9 g/dL (6.4-8.2)
[2019-06-16 06:54] LABS: CALCIUM 8.5 mg/dL (8.5-10.1)
[2019-06-16] MEDS ORDERED: ZOLOFT ONE (07:26)
[2019-06-16] MEDS: PROVENTIL NEB TX 0.083% 2.5MG/ 3ML NEB SCH ×2 (08:23→20:56)
[2019-06-16] MEDS: PULMICORT NEB TX 0.5 MG NEB SCH ×2 (08:23→20:57)
[2019-06-16] MEDS: WELCHOL PO SCH (08:36)
[2019-06-16] MEDS: MICRO K EXTEN CAP 10 MEQ PO SCH (08:37)
[2019-06-16] MEDS: GLUCOPHAGE XR PO SCH (08:37)
[2019-06-16] MEDS: SINGULAIR TAB 10 MG PO SCH (08:37)
[2019-06-16] MEDS: TOPAMAX TAB 100 MG PO SCH (08:39)
[2019-06-16] MEDS: ZANTAC PO SCH ×2 (08:39→20:28)
[2019-06-16] MEDS: ZOLOFT PO SCH (08:39)
[2019-06-16] MEDS: SYNTHROID 100 mcg TAB PO SCH (08:39)
[2019-06-16] MEDS: DEMADEX PO SCH (08:40)
[2019-06-16] MEDS: FLONASE NASAL SPRAY ENOSTRIL SCH (08:47)
[2019-06-16] MEDS ORDERED: SPIRIVA HANDIHALER (30 DOSE) IN SCH (09:00)
[2019-06-16] MEDS ORDERED: TIOTROPIUM IN SCH (09:00)
[2019-06-16] MEDS ORDERED: MOBIC TAB 15 MG PO SCH (09:00)
[2019-06-16] MEDS ORDERED: ZOLOFT PO SCH (09:00)
[2019-06-16] MEDS ORDERED: ROCEPHIN VIAL 1 GRAM ONE (10:54)
[2019-06-16] MEDS: ROCEPHIN VIAL 1 GRAM IVP SCH (11:15)
[2019-06-16 11:39] LABS: ABG BASE EXCESS -4.7 mmol/L (-2.0-2.0); ABG HCO3 19.4 mmol/L (22-26)
[2019-06-16 11:40] LABS: ABG ALLEN TEST POS
[2019-06-16 11:47] LABS: AMYLASE 1295 Units/L (25-115); LIPASE 12154 Units/L (73-393)
--- NOTE | 2019-06-16 12:22 | CT ---
HISTORY: Severe abdominal pain, altered mental status Study: CT abdomen and pelvis without contrast Comparison: CT abdomen pelvis dated 11/03/2017 Technique: Multiple axial images of the abdomen and pelvis were obtained from the lung bases to the pubic symphysis without the administration of IV contrast. Automated exposure control (AEC) was utilized to adjust the MA and/or kV according to patient size. Findings: There are trace bilateral pleural effusions and bibasilar atelectasis. Abdomen: Please note that the lack of intravenous contrast limits sensitivity for detection of parenchymal lesions. The liver appears homogeneous without contour deforming masses. Gallbladder surgically absent. No bile duct dilatation is demonstrated. There is trace free fluid anterior to the right hepatic lobe.. The spleen appears normal. There is large amount of fat stranding surrounding the pancreas extending into the mesentery centrally and along with free fluid extends along the anterior pararenal fascia bilaterally. Evaluation of the pancreatic parenchyma is limited by the lack of IV contrast. Findings are likely secondary to acute pancreatitis. Evaluation of the adjacent vasculature is also limited by the lack of IV contrast. There is mild nodular thickening of both adrenal glands. Both kidneys are homogenous without contour deforming masses. No radiopaque calculi are noted. No hydronephrosis or perinephric fluid collection. The stomach is unremarkable. The small bowel and colon are nondistended. The appendix is not identified. There is moderate amount of free fluid extending into the paracolic gutters bilaterally right more so than left. The abdominal aorta is of normal caliber. Pelvis: Urinary bladder is decompressed and contains a Faria catheter. There is mild diverticulosis of the sigmoid colon. There is moderate stool within the rectum suggesting constipation and possible fecal impaction.. The rectum and sigmoid colon appear unremarkable. There is no free fluid in the pelvis. There is a left iliac vein stent. No acute osseous abnormalities are identified. IMPRESSION: 1. Interval development of a large amount of fat stranding centered around the pancreas extending throughout the mesenteric fat, most consistent with acute pancreatitis. There is moderate amount of ascites present as described above. Correlation pancreatic enzymes is required. Please note that the lack of IV contrast limits evaluation of the pancreatic parenchyma (therefore cannot exclude necrotizing pancreatitis) and limits evaluation of the adjacent vascular structures. Other considerations for diffuse mesenteric edema would include other adjacent inflammatory processes or mesenteric/portal venous thrombosis. Clinical correlation is required. 2. Mild, bilateral symmetric nodular thickening of the adrenal glands. 3. Other findings as above. Reported By:
[2019-06-16] MEDS ORDERED: DULCOLAX SUPPOSITORY 10 MG RECTAL ONE (13:41)
--- NOTE | 2019-06-16 13:53 | DR.H&P ---
H&P - History & Physical for Day of: H&P Date: 06/15/19 - Chief Complaint Chief Complaint: AMS - History of Present Illness History of Present Illness: 64WF ER ADMISSION WITH FAMILY CO AMS. PT C/O CHEST PAIN AND SHORTNESS OF BREATH. PT BROUGHT IN PER EMS. PT NOTED TO BE DIAPHORETIC AND NOTED PT'S SPEECH TO BE GARBBLED SPEECH. PT DOES STATE THAT SHE HAS LUNG CA AND REC CHEMP TREATMENT. PT NOTED TO BE ALTERED. PT HAD CT HEAD IN ER WITHOUT AC RESIGHINI CHANGES. PT ADMITTED FOR TREATMENT AND EVALUATION OF ACUTE ILLNESS. - Past Medical History Past Medical History: Hypertension, Diabetes, Hypothyroidism, CVA, COPD, GERD, CHF - Past Surgical History Surgical History: Cholecystectomy, Hysterectomy, Ortho Surgery, Other - Family History Family Medical History: Diabetes Mellitus, Cancer - Social History Does patient currently use any type of tobacco product: Yes Have you used tobacco products in the last 12 months: Yes Type of Tobacco Use: Cigarettes How many years tobacco product used: 50 Does any household member use tobacco: No Alcohol Use: None Drug Use: None - Medications Home Medications: aspirin Allergy (Verified 11/03/17 18:10) ANAPHALEXIS REACTION azithromycin [From Zithromax] Allergy (Verified 11/03/17 18:09) ciprofloxacin [From Cipro] Allergy (Verified 11/03/17 18:09) morphine Allergy (Verified 11/03/17 18:09) Penicillins Allergy (Verified 11/03/17 18:09) CONTINUE taking the following medications albuterol sulfate [Ventolin HFA] 1 puff INHALATION Q6H PRN 06/15/19 [History] fluticasone propionate 2 spray INTRANASAL DAILY 06/15/19 [History] levothyroxine 100 mcg PO DAILY 06/15/19 [History] nitroglycerin 0.4 mg SUBLINGUAL Q5-15M PRN 06/15/19 [History] - Review of Systems Constitutional: Weakness Eyes: No Symptoms Reported ENT: No Symptoms Reported Respiratory: Shortness of Breath Gastrointestinal: Nausea, Abdominal Pain Genitourinary: No Symptoms Reported Musculoskeletal: No Symptoms Reported Skin: No Symptoms Reported Neurological: Weakness, Confusion - Physical Exam Vital Signs: Temperature 98.4 F Pulse Rate [Left] 109 Pulse Rate 97 Respiratory Rate 20 Blood Pressure [Left Arm] 143/73 Blood Pressure [Right Arm] 143/85 Blood Pressure 127/66 O2 Sat by Pulse Oximetry 95 Oriented: Person Eyes: Normal Ear: Normal Nose: Normal Throat: Normal Respiratory: RML Diminished, RLL Diminished, LML Diminished, LLL Diminished Cardiovascular: Tachycardia : Normal Auscultation: Bowel Sounds: Normal Palpation: Normal Tenderness: Diffuse, LUQ, Epigastric Skin: Decreased [place]urgur Musculoskeletal: Normal Psychiatric: Anxiety Affect: Anxious Speech Pattern: Delayed - Assessment/Plan (1) Altered mental status Qualifiers: Altered mental status type: somnolence Qualified Code(s): R40.0 - Somnolence Status: Acute Plan: ADMIT CT HEAD IN ER ON ADMISSION. CXR IN ER ON ADMISSION, ADMISSION LABS. ADD BLOOD CULTURES, UA. RESP CONSULT, SPUTUM CULTURE. IV ROCEPHIN, VERIFY HOME MEDICATION, SUPPLEMENTAL O2. GENTLE IV HYDRATION, BS CONTROL (2) Lung cancer Status: Acute (3) Diabetes mellitus Status: Chronic (4) GERD (gastroesophageal reflux disease) Status: Chronic (5) Hypertension Status: Chronic - Allergies Allergies/Adverse Reactions: Allergies Allergy/AdvReac Type Severity Reaction Status Date / Time aspirin Allergy ANAPHALEXIS Verified 11/03/17 18:10 REACTION azithromycin [From Zithromax] Allergy Verified 11/03/17 18:09 ciprofloxacin [From Cipro] Allergy Verified 11/03/17 18:09 morphine Allergy Verified 11/03/17 18:09 Penicillins Allergy Verified 11/03/17 18:09
--- NOTE | 2019-06-16 13:57 | PCM.PROG ---
Progress Note - Progress Note for Day of Date of Exam: 06/16/19 - Subjective Subjective: 64WF ER ADMISSION ON 06/15 WITH FAMILY REPORTING AMS. PT HAS PMH OF LUNG CA,UNDER THE CARE OF DR ALVARES CURRENTLY ON CHEMOTHERAPY. PT CO SOB THIS AM AND SEVERE LEFT UPPER AND MID UPPER ABDOMINAL PAIN, VERY TENDER ON EXAM. PT LABS WBC 16.1, BUN 17 CREAT 1.21. PT MADE NPO, PAIN CONTROL. AMYLASE AND LIPASE LEVEL, CT ABD PELVIS W/O STAT. ICE CHIPS ONLY. BLOOD SUGAR CONTROL WITH SSI. - Past Medical Family Social History Past Med/Fam/Surg Hx: No changes since H&P Allergies: Allergies aspirin Allergy (Verified 11/03/17 18:10) ANAPHALEXIS REACTION azithromycin [From Zithromax] Allergy (Verified 11/03/17 18:09) ciprofloxacin [From Cipro] Allergy (Verified 11/03/17 18:09) morphine Allergy (Verified 11/03/17 18:09) Penicillins Allergy (Verified 11/03/17 18:09) - Review of Systems ROS: No change since H&P - Vital Signs and I&O's Vital Signs: Temperature 98.4 F Pulse Rate [Left] 109 Pulse Rate 97 Respiratory Rate 20 Blood Pressure [Left Arm] 143/73 Blood Pressure [Right Arm] 143/85 Blood Pressure 127/66 O2 Sat by Pulse Oximetry 95 Intake and Output: Intake & Output 06/14/19 06/15/19 06/16/19 06/17/19 11:59 11:59 11:59 11:59 Intake Total 780 / 780 Output Total 700 / 700 Balance 80 / 80 - Physical Exam Oriented: Person Eyes: Normal Ear: Normal Nose: Normal Throat: Normal Cardiovascular: Tachycardia : Normal Auscultation: Bowel Sounds: Normal Tenderness: Diffuse, LUQ, Epigastric Skin: Decreased [place] Musculoskeletal: Normal Psychiatric: Anxiety Mood Description: Calm Affect: Anxious Speech Pattern: Delayed - Laboratory and Diagnostics Result Diagrams: 06/16/19 06:23 06/16/19 06:23 Labs: Laboratory WBC 16.1 X10^3/uL (3.6-10.0) H 06/16/19 06:23 RBC 4.78 X10^6/uL (3.5-5.4) 06/16/19 06:23 Hgb 14.6 g/dL (12.0-16.0) 06/16/19 06:23 Hct 44.1 % (36.0-47.0) 06/16/19 06:23 MCV 92.2 fL (80.0-100.0) 06/16/19 06:23 MCH 30.5 pg (27.0-34.0) 06/16/19 06: MCHC 33.0 g/dL (33.0-35.0) 06/16/19 06: RDW 16.4 % (11.6-16.5) 06/16/19 06:23 Plt Count 294 X10^3/uL (150.0-450.0) 06/16/19 06: MPV 7.4 fL (7.4-11.0) 06/16/19 06: Neut % (Auto) 88.6 % (42.0-75.0) H 06/16/19 06: Lymph % (Auto) 5.4 % (21.0-51.0) L 06/16/19 06:23 [place] % (Auto) 5.8 % (0.0-13.0) 06/16/19 06: Eos % (Auto) 0.0 % (0.9-2.9) L 06/16/19 06: Baso % (Auto) 0.2 % (0.2-1.0) 06/16/19 06: Neut # (Auto) 14.3 x10^3/uL (2.2-4.8) H 06/16/19 06:23 Lymph # (Auto) 0.9 X10^3/uL (1.3-2.9) L 06/16/19 06:23 [place] # (Auto) 0.9 x10^3/uL (0.3-0.8) H 06/16/19 06:23 Eos # (Auto) 0.0 x10^3/uL (0.0-0.2) 06/16/19 06:23 Baso # (Auto) 0.0 X10^3/uL (0.0-0.1) 06/16/19 06: Absolute Nucleated RBC 0.0 /100WBC 06/16/19 06:23 PT 12.4 SECONDS (11.8-14.3) 06/15/19 16:20 INR Target Range - 06/15/19 16:20 INR 0.96 (0.8-1.3) 06/15/19 16:20 APTT 20.7 SECONDS (22.9-36.5) L 06/15/19 16:20 PTT Comment - 06/15/19 16:20 D-Dimer 494 ng/mL (0-400) H* 06/15/19 16:20 Sample Site Rrad 06/16/19 11:30 ABG pH 7.390 (7.35-7.45) 06/16/19 11:30 ABG pCO2 32.0 mmHg (35.0-45.0) L 06/16/19 11:30 ABG pO2 60.0 mmHg (80.0-100.0) L 06/16/19 11:30 ABG HCO3 19.4 mmol/L (22-26) L 06/16/19 11:30 ABG O2 Saturation 90.0 % (90-100) 06/16/19 11:30 ABG Base Excess -4.7 mmol/L (-2.0-2.0) L 06/16/19 11:30 Jason Test Pos 06/16/19 11:30 A-a Gradient 50.0 mmHg 06/16/19 11:30 FiO2 21.0 06/16/19 11:30 Blood Gas Comments Garry well-sd 06/16/19 11:30 Sodium 140 mmol/L (136-145) 06/16/19 06:23 Corrected Sodium 142 mmol/L (136-145) 06/16/19 06:23 Potassium 4.3 mmol/L (3.5-5.1) 06/16/19 06:23 Chloride 105 mmol/L (98-107) 06/16/19 06:23 Carbon Dioxide 22.8 mmol/L (21-32) 06/16/19 06:23 BUN 17 mg/dL (7-18) 06/16/19 06:23 Creatinine 1.21 mg/dL (0.55-1.02) H 06/16/19 06:23 Est GFR (MDRD) Af Amer 57 (>60) L 06/16/19 06:23 Est GFR (MDRD) Non-Af 47 (>60) L 06/16/19 06:23 Glucose 201 mg/dL (65-99) H 06/16/19 06:23 Calcium 8.5 mg/dL (8.5-10.1) 06/16/19 06:23 Corrected Calcium 9.0 mg/dL (8.5-10.1) 06/16/19 06:23 Magnesium 1.9 mg/dL (1.7-2.9) 06/15/19 16:20 Total Bilirubin 0.30 mg/dL (0.2-1.0) 06/16/19 06:23 AST 22 Units/L (15-37) 06/16/19 06:23 ALT 20 Units/L (12-78) 06/16/19 06:23 Alkaline Phosphatase 104 Units/L (46-116) 06/16/19 06:23 Creatine Kinase 32 Units/L (26-192) 06/15/19 16:20 CK-MB (CK-2) < 1.0 ng/mL (0-4.0) 06/15/19 16:20 CK/CKMB % Calc 3.1 % (<4) 06/15/19 16:20 Troponin I < 0.02 ng/mL (0-1.5) 06/15/19 16:20 B-Natriuretic Peptide 13.9 pg/mL (0-79) 06/15/19 16:20 Total Protein 6.9 g/dL (6.4-8.2) 06/16/19 06:23 Albumin 3.3 g/dL (3.4-5.0) L 06/16/19 06:23 Globulin 3.6 g/dL (2.5-4.5) 06/16/19 06:23 Albumin/Globulin Ratio 0.9 Ratio (1.1-2.1) L 06/16/19 06:23 Amylase 1295 Units/L (25-115) H 06/16/19 06:23 Lipase 46286 Units/L (73-393) H 06/16/19 06:23 Specimen Type Catherized urine 06/15/19 16:36 Urine Color Yellow (YELLOW) 06/15/19 16:36 Urine Appearance Clear (CLEAR) 06/15/19 16:36 Urine pH 6.5 (5.0 - 8.0) 06/15/19 16:36 Ur Specific [place] 1.010 (1.000-1.030) 06/15/19 16:36 Urine Protein 1+ (NEGATIVE) 06/15/19 16:36 Urine Glucose (UA) Negative (NEGATIVE) 06/15/19 16:36 Urine Ketones Negative (NEGATIVE) 06/15/19 16:36 Urine Occult Blood Negative (NEGATIVE) 06/15/19 16:36 Urine Nitrite Negative (NEGATIVE) 06/15/19 16:36 Urine Bilirubin Negative (NEGATIVE) 06/15/19 16:36 Urine Urobilinogen Normal (NORMAL) 06/15/19 16:36 Ur Leukocyte Esterase Negative (NEGATIVE) 06/15/19 16:36 Urine RBC 0-2 /HPF (0-3) 06/15/19 16:36 Urine WBC 0-2 /HPF (0-5) 06/15/19 16:36 Ur Squamous Epith Cells Rare /HPF (NEGATIVE) 06/15/19 16:36 Urine Bacteria Negative /HPF (NEGATIVE) 06/15/19 16:36 Ur Culture Indicated? No/not indicated 06/15/19 16:36 Urine Opiates Screen Negative (NEG=<300) 06/15/19 16:36 Urine Methadone Screen Negative (NEG=<300) 06/15/19 16:36 Ur Barbiturates Screen Negative (NEG=<200) 06/15/19 16:36 Ur Phencyclidine Scrn Negative (NEG=<25) 06/15/19 16:36 Ur Amphetamines Screen Negative (NEG=<1000) 06/15/19 16:36 U Benzodiazepines Scrn Negative (NEG=<200) 06/15/19 16:36 Urine Cocaine Screen Negative (NEG=<300) 06/15/19 16:36 U Marijuana (THC) Screen Negative (NEG=<50) 06/15/19 16:36 - Plan (1) Altered mental status Status: Acute Qualifiers: Altered mental status type: somnolence Qualified Code(s): R40.0 - Somnolence Plan: CT HEAD IN ER ON ADMISSION. CXR IN ER ON ADMISSION, ADMISSION LABS. ADD BLOOD CULTURES, UA. RESP CONSULT, SPUTUM CULTURE. IV ROCEPHIN, VERIFY HOME MEDICATION, SUPPLEMENTAL O2. GENTLE IV HYDRATION, BS CONTROL (2) Lung cancer Status: Acute (3) Diabetes mellitus Status: Chronic (4) GERD (gastroesophageal reflux disease) Status: Chronic (5) Hypertension Status: Chronic
[2019-06-16] MEDS ORDERED: DILAUDID INJ ONE (14:37)
[2019-06-16 15:17] VITALS: BMI 31.8
[2019-06-16] MEDS ORDERED: SALINE 3% 15 ML NEB TX NEB ONE (16:36)
[2019-06-16] MEDS ORDERED: DULCOLAX SUPPOSITORY 10 MG ONE (17:25)
[2019-06-16] MEDS: LIPITOR TAB 20 MG PO SCH (20:28)
[2019-06-16] MEDS: DILAUDID INJ IVP PRN (20:28)
[2019-06-17] MEDS: DILAUDID INJ IVP PRN ×3 (02:37→20:15)
[2019-06-17] MEDS: NS 1000 ML 1,000 ML IV SCH ×5 (03:43→20:07)
[2019-06-17 04:50] LABS: BASOPHILS % (AUTO) 0.1 % (0.2-1.0); HEMATOCRIT 44.2 % (36.0-47.0); HEMOGLOBIN 14.5 g/dL (12.0-16.0); LYMPHOCYTES # (AUTO) 1.1 X10^3/uL (1.3-2.9); MEAN CORPUSCULAR HEMOGLOBIN 30.3 pg (27.0-34.0); MEAN CORPUSCULAR HGB CONC 32.8 g/dL (33.0-35.0); MEAN CORPUSCULAR VOLUME 92.4 fL (80.0-100.0); MEAN PLATELET VOLUME 8.3 fL (7.4-11.0); MONOCYTES # (AUTO) 1.4 x10^3/uL (0.3-0.8); MONOCYTES % (AUTO) 6.3 % (0.0-13.0); NEUTROPHILS % (AUTO) 88.6 % (42.0-75.0); PLATELET COUNT 257 X10^3/uL (150.0-450.0); RED BLOOD COUNT 4.79 X10^6/uL (3.5-5.4); RED CELL DISTRIBUTION WIDTH 16.5 % (11.6-16.5); WHITE BLOOD COUNT 22.5 X10^3/uL (3.6-10.0)
[2019-06-17 05:10] LABS: ALBUMIN 2.7 g/dL (3.4-5.0); CALCIUM 7.6 mg/dL (8.5-10.1); CARBON DIOXIDE 19.1 mmol/L (21-32); COR CA(FOR HYPOALB) 8.6 mg/dL (8.5-10.1); CREATININE 1.19 mg/dL (0.55-1.02); TOTAL PROTEIN 6.6 g/dL (6.4-8.2)
[2019-06-17 05:21] LABS: PLATELET MORPHOLOGY COMMENT NORMAL (NORMAL)
[2019-06-17] MEDS: PROVENTIL NEB TX 0.083% 2.5MG/ 3ML NEB SCH ×2 (08:20→20:30)
[2019-06-17] MEDS: PULMICORT NEB TX 0.5 MG NEB SCH ×2 (08:20→20:30)
[2019-06-17] MEDS ORDERED: ZOLOFT ONE (08:28)
[2019-06-17] MEDS: ZOLOFT PO SCH (09:15)
[2019-06-17] MEDS: SINGULAIR TAB 10 MG PO SCH (09:17)
[2019-06-17] MEDS: MICRO K EXTEN CAP 10 MEQ PO SCH (09:17)
[2019-06-17] MEDS: ZANTAC PO SCH ×2 (09:17→20:14)
[2019-06-17] MEDS: WELCHOL PO SCH (09:18)
[2019-06-17] MEDS: SYNTHROID 100 mcg TAB PO SCH (09:18)
[2019-06-17] MEDS: ROCEPHIN VIAL 1 GRAM IVP SCH (09:21)
[2019-06-17] MEDS: FLONASE NASAL SPRAY ENOSTRIL SCH (09:23)
[2019-06-17] MEDS: DEMADEX PO SCH (10:22)
[2019-06-17] MEDS ORDERED: PHARMACY CONSULT - DOSE _____ XX SCH (11:00)
[2019-06-17] MEDS: LOVENOX INJ 30 MG SYR SC SCH (14:13)
--- NOTE | 2019-06-17 14:24 | US ---
HISTORY: Pancreatitis. Prior surgical history of cholecystectomy. Study: Ultrasound of the liver Comparison: CT scan of the abdomen done 06/16/2019. Technique: Grayscale, color and duplex Doppler ultrasound imaging of the liver region is provided. Findings: There is a small amount of perihepatic ascites present. The liver is uniformly fatty. No hepatic mass or biliary ductal ectasia is seen. Portal venous flow is hepatopetal. Gallbladder surgically absent. The common bile duct measures 4.3 mm in caliber. Pancreas is not well seen secondary to overlying bowel gas. The right kidney measures 8.78 cm in length. The cortical thickness is 2.2 cm. IVC and abdominal aorta are not well seen secondary to overlying bowel gas also. IMPRESSION: Normal sized, fatty liver with perihepatic ascites. Surgically absent gallbladder. Normal appearing right kidney. Pancreas, IVC and abdominal aorta are not well seen. Reported By:
--- NOTE | 2019-06-17 18:40 | CT ---
CT abdomen and pelvis with contrast Indication: History of pancreatitis Comparison: 06/16/2019 CT Technique: Helical images through the abdomen and pelvis after IV contrast. Coronal and sagittal reformats provided. Findings: Review of bone windows demonstrates spine and pelvis DJD. Limited images through the lower chest shows dependent atelectasis and trace bilateral effusions. Heart size is prominent. Abdomen: Perihepatic ascites is again noted. No liver lesion identified. The gallbladder is absent. The spleen and adrenal glands show no acute abnormality. Scarring is seen in the kidneys, without hydroureteronephrosis identified. Few vascular calcifications noted. Stomach and small bowel show no acute abnormality. Colonic diverticulosis is noted. Colon is otherwise normal. Appendix is normal. Acute fluid is seen in the left upper quadrant around the spleen and abutting the greater curvature of the stomach. Fluid is seen in the pericolic gutters and minimally in the pelvis as well as in the mid abdominal mesentery. There is a large section of the body of the pancreas which does not enhance on axial images 29-31. Patchy enhancement is seen at the tail of the pancreas, with the majority of the tail enhancing normally. The uncinate process on a portion of the head enhance normally. There is peripancreatic stranding and fluid. No free air is seen. Pelvis: Left iliac vein stent noted. Urinary bladder is collapsed around a Faria catheter. The rectum is normal. Uterus is absent. No adnexal region lesions seen. Impression: 1. Sequela of acute pancreatitis with necrosis of the body of the pancreas suspected given non enhancement. Patchy areas of nonenhancing pancreatic tail suggested as well. 2. Acute abdominal fluid around the liver, spleen, throughout the abdominal mesentery and in the pericolic gutters is again noted, similar to the prior. 3. Dependent atelectasis, effusion, vascular calcifications, spine DJD and other findings as above. Noninflamed colonic diverticula again noted 4. Scarring is noted in the kidneys 5. The adrenal glands are somewhat thickened, without discrete nodule identified. Reported By:
[2019-06-17] MEDS: LIPITOR TAB 20 MG PO SCH (20:14)
[2019-06-18] MEDS: NS 1000 ML 1,000 ML IV SCH ×4 (02:50→12:08)
[2019-06-18] MEDS: DILAUDID INJ IVP PRN (02:50)
[2019-06-18 05:10] LABS: BASOPHILS % (AUTO) 0.1 % (0.2-1.0); HEMATOCRIT 33.8 % (36.0-47.0); LYMPHOCYTES % (AUTO) 5.6 % (21.0-51.0); MEAN CORPUSCULAR HEMOGLOBIN 30.6 pg (27.0-34.0); MEAN CORPUSCULAR VOLUME 92.9 fL (80.0-100.0); MEAN PLATELET VOLUME 8.2 fL (7.4-11.0); MONOCYTES # (AUTO) 1.3 x10^3/uL (0.3-0.8); MONOCYTES % (AUTO) 6.9 % (0.0-13.0); NEUTROPHILS # (AUTO) 16.1 x10^3/uL (2.2-4.8); NEUTROPHILS % (AUTO) 87.4 % (42.0-75.0); PLATELET COUNT 179 X10^3/uL (150.0-450.0); RED BLOOD COUNT 3.64 X10^6/uL (3.5-5.4); RED CELL DISTRIBUTION WIDTH 16.9 % (11.6-16.5); WHITE BLOOD COUNT 18.5 X10^3/uL (3.6-10.0)
[2019-06-18 05:12] LABS: HEMOGLOBIN 11.1 g/dL (12.0-16.0)
[2019-06-18 05:26] LABS: ALANINE AMINOTRANSFERASE 20 Units/L (12-78); ALBUMIN 2.2 g/dL (3.4-5.0); ALKALINE PHOSPHATASE 71 Units/L (46-116); ASPARTATE AMINO TRANSFERASE 37 Units/L (15-37); BLOOD UREA NITROGEN 18 mg/dL (7-18); CALCIUM 7.1 mg/dL (8.5-10.1); CARBON DIOXIDE 20.9 mmol/L (21-32); CHLORIDE 112 mmol/L (98-107); COR CA(FOR HYPOALB) 8.5 mg/dL (8.5-10.1); COR NA(FOR HYPERGLY) 144 mmol/L (136-145); CREATININE 0.91 mg/dL (0.55-1.02); SODIUM 143 mmol/L (136-145); TOTAL PROTEIN 5.5 g/dL (6.4-8.2); eGFR NON BLACK RACES > 60 (>60)
[2019-06-18 05:41] LABS: AMYLASE 691 Units/L (25-115)
[2019-06-18 05:42] LABS: LIPASE 3443 Units/L (73-393)
--- NOTE | 2019-06-18 06:07 | RAD ---
HISTORY: Shortness of breath Study: Chest AP portable Comparison: 06/15/2019 Findings: The heart is within normal limits in size. The adán are normal. The lungs are free of acute alveolar infiltrates. Mild interstitial lung changes are present. No definite pleural effusions are identified. The bony thorax is unremarkable. IMPRESSION: No acute alveolar infiltrates Stable mild interstitial lung changes Reported By:
[2019-06-18] MEDS ORDERED: ZOLOFT ONE (08:58)
[2019-06-18] MEDS: PROVENTIL NEB TX 0.083% 2.5MG/ 3ML NEB SCH ×2 (09:15→20:46)
[2019-06-18] MEDS: PULMICORT NEB TX 0.5 MG NEB SCH ×2 (09:15→20:46)
[2019-06-18] MEDS ORDERED: LASIX IVP ONE (09:33)
[2019-06-18] MEDS: LOVENOX INJ 30 MG SYR SC SCH (09:57)
[2019-06-18] MEDS: ZANTAC PO SCH ×2 (09:58→20:29)
[2019-06-18] MEDS: ZOLOFT PO SCH (09:59)
[2019-06-18] MEDS: SINGULAIR TAB 10 MG PO SCH (09:59)
[2019-06-18] MEDS: SYNTHROID 100 mcg TAB PO SCH (10:00)
[2019-06-18] MEDS: ROCEPHIN VIAL 1 GRAM IVP SCH (10:01)
[2019-06-18] MEDS: DEMADEX PO SCH (10:01)
[2019-06-18] MEDS: MICRO K EXTEN CAP 10 MEQ PO SCH (10:01)
[2019-06-18] MEDS: WELCHOL PO SCH (10:01)
[2019-06-18] MEDS: FLONASE NASAL SPRAY ENOSTRIL SCH (10:02)
[2019-06-18] MEDS ORDERED: SALINE 3% 15 ML NEB TX NEB ONE (10:40)
[2019-06-18] MEDS: PHENERGAN INJ 25 MG IM PRN (20:29)
[2019-06-18] MEDS: LIPITOR TAB 20 MG PO SCH (20:29)
[2019-06-19 07:03] LABS: BASOPHILS % (AUTO) 0.2 % (0.2-1.0); EOSINOPHILS % (AUTO) 0.1 % (0.9-2.9); HEMATOCRIT 33.7 % (36.0-47.0); HEMOGLOBIN 11.2 g/dL (12.0-16.0); LYMPHOCYTES # (AUTO) 0.9 X10^3/uL (1.3-2.9); LYMPHOCYTES % (AUTO) 5.2 % (21.0-51.0); MEAN CORPUSCULAR HEMOGLOBIN 30.4 pg (27.0-34.0); MEAN CORPUSCULAR HGB CONC 33.2 g/dL (33.0-35.0); MEAN CORPUSCULAR VOLUME 91.6 fL (80.0-100.0); MEAN PLATELET VOLUME 7.8 fL (7.4-11.0); MONOCYTES # (AUTO) 1.2 x10^3/uL (0.3-0.8); MONOCYTES % (AUTO) 7.4 % (0.0-13.0); NEUTROPHILS # (AUTO) 14.5 x10^3/uL (2.2-4.8); NEUTROPHILS % (AUTO) 87.1 % (42.0-75.0); PLATELET COUNT 190 X10^3/uL (150.0-450.0); RED BLOOD COUNT 3.68 X10^6/uL (3.5-5.4); RED CELL DISTRIBUTION WIDTH 16.2 % (11.6-16.5); WHITE BLOOD COUNT 16.6 X10^3/uL (3.6-10.0)
[2019-06-19 07:15] LABS: ALANINE AMINOTRANSFERASE 18 Units/L (12-78); ALBUMIN 2.3 g/dL (3.4-5.0); ALKALINE PHOSPHATASE 80 Units/L (46-116); ASPARTATE AMINO TRANSFERASE 27 Units/L (15-37); BLOOD UREA NITROGEN 11 mg/dL (7-18); CALCIUM 7.8 mg/dL (8.5-10.1); CARBON DIOXIDE 25.5 mmol/L (21-32); CHLORIDE 107 mmol/L (98-107); COR CA(FOR HYPOALB) 9.2 mg/dL (8.5-10.1); COR NA(FOR HYPERGLY) 142 mmol/L (136-145); CREATININE 0.84 mg/dL (0.55-1.02); LIPASE 538 Units/L (73-393); MAGNESIUM 1.7 mg/dL (1.7-2.9); SODIUM 142 mmol/L (136-145); TOTAL PROTEIN 6.3 g/dL (6.4-8.2); eGFR NON BLACK RACES > 60 (>60)
[2019-06-19] MEDS: NS 1000 ML 1,000 ML IV SCH ×4 (07:18→12:56)
[2019-06-19 07:47] LABS: AMMONIA < 10 umol/L (11-32)
[2019-06-19] MEDS ORDERED: MAGNESIUM SULFATE 1 GRAM/100 mL PREMIX 1 GM/100 ML BAG IV PRN (08:20)
[2019-06-19] MEDS ORDERED: POTASSIUM CHLORIDE LIQ 20 MEQ UDC PO PRN (08:20)
[2019-06-19] MEDS ORDERED: KLOR-CON PO PRN (08:20)
[2019-06-19] MEDS ORDERED: MICRO K EXTEN CAP 10 MEQ PO PRN (08:20)
[2019-06-19] MEDS ORDERED: POTASSIUM CHL 60 MEQ/NS 0.45% 500 ML IV PRN (08:20)
[2019-06-19] MEDS ORDERED: K-DUR TAB 20 MEQ PO PRN (08:20)
[2019-06-19] MEDS ORDERED: POTASSIUM CHL 40 MEQ/NS 0.45% 500 ML IV PRN (08:20)
[2019-06-19] MEDS ORDERED: ZOLOFT ONE ×2 (08:54→11:24)
[2019-06-19] MEDS: PROVENTIL NEB TX 0.083% 2.5MG/ 3ML NEB SCH ×3 (09:06→20:25)
[2019-06-19] MEDS: PULMICORT NEB TX 0.5 MG NEB SCH ×3 (09:07→20:24)
[2019-06-19] MEDS: LOVENOX INJ 30 MG SYR SC SCH (09:49)
[2019-06-19] MEDS: WELCHOL PO SCH (09:50)
[2019-06-19] MEDS: ZANTAC PO SCH ×2 (09:52→20:45)
[2019-06-19] MEDS: DEMADEX PO SCH (09:52)
[2019-06-19] MEDS: ROCEPHIN VIAL 1 GRAM IVP SCH (09:52)
[2019-06-19] MEDS: MICRO K EXTEN CAP 10 MEQ PO SCH (09:53)
[2019-06-19] MEDS: SINGULAIR TAB 10 MG PO SCH (09:53)
[2019-06-19] MEDS: ZOLOFT PO SCH (09:53)
[2019-06-19] MEDS: FLONASE NASAL SPRAY ENOSTRIL SCH (09:54)
[2019-06-19] MEDS: SYNTHROID 100 mcg TAB PO SCH (09:54)
[2019-06-19] MEDS: K-RIDER 10 MEQ/NS 100 ML 10 MEQ/100 ML BAG IV PRN ×5 (09:54→16:58)
[2019-06-19] MEDS: PHENERGAN INJ 25 MG IM PRN (10:18)
--- NOTE | 2019-06-19 15:54 | CT ---
CTA chest with contrast per pulmonary embolism protocol Indication: Shortness of breath Comparison: 11/05/2017 Technique: Multiple axial images of the chest were obtained from the thoracic inlet to the upper abdomen after the administration of IV contrast.Coronal and Sagittal MIP images were also provided. Dose reduction techniques including automated exposure control (AEC) and adjustment of mA and kV were utilized. Findings: No central or segmental pulmonary arterial filling defect is identified. There is normal caliber of the pulmonary artery without CT evidence or right heart strain. The heart size is normal with a small pericardial effusion. Thoracic aorta is normal in caliber and configuration. Small amount of fluid is noted within the pericardial recess. No enlarged mediastinal or hilar lymphadenopathy. There is bronchiectasis with ground-glass opacity in the right upper lobe. There is also bronchiectasis and peribronchial thickening within the posterior right upper lobe suspicious for developing infiltrate. Mild peripheral reticulation and ground-glass opacities are noted within the right middle lobe and lingula. Tiny right-sided pleural effusion with passive atelectasis. There is a small left-sided pleural effusion with passive atelectasis. Metallic densities are noted within the left lower lobe at site of previously described pulmonary nodule. Minimal reticulation and ground-glass opacity is noted within the periphery of the left lung apex. Central airways are clear. Imaging of the upper abdomen demonstrates increased thickening within the visualized pancreatic tail with adjacent peripancreatic stranding. Review of bone windows demonstrates no acute osseous abnormality. IMPRESSION: 1. No PTE identified. 2. Bronchiectasis with ground-glass opacities throughout the right upper lobe potentially in the setting of chronic interstitial lung changes or is post therapeutic pneumonitis; however within the posterior of the right upper lobe there is peribronchial consolidation air bronchograms raising concern for developing infiltrate/pneumonia. Follow-up chest CT in 3 months is recommended to ensure resolution/stability. 3. Mild reticulation within the periphery the right middle lobe, left upper lobe and lingula are suspected to represent chronic interstitial lung changes. 4. Small left and tiny right-sided pleural effusions with bibasilar dependent atelectasis. 5. Suspected partially visualized acute pancreatitis with peripancreatic stranding and thickening of the pancreatic tail. Reported By:
[2019-06-19] MEDS: LIPITOR TAB 20 MG PO SCH (20:45)
[2019-06-20] MEDS: K-RIDER 10 MEQ/NS 100 ML 10 MEQ/100 ML BAG IV PRN ×6 (01:37→08:21)
[2019-06-20 05:33] LABS: BASOPHILS % (AUTO) 0.1 % (0.2-1.0); EOSINOPHILS % (AUTO) 0.1 % (0.9-2.9); HEMATOCRIT 33.2 % (36.0-47.0); HEMOGLOBIN 11.4 g/dL (12.0-16.0); LYMPHOCYTES # (AUTO) 1.1 X10^3/uL (1.3-2.9); MEAN CORPUSCULAR HEMOGLOBIN 31.7 pg (27.0-34.0); MEAN CORPUSCULAR HGB CONC 34.3 g/dL (33.0-35.0); MEAN CORPUSCULAR VOLUME 92.3 fL (80.0-100.0); MEAN PLATELET VOLUME 8.2 fL (7.4-11.0); MONOCYTES # (AUTO) 1.5 x10^3/uL (0.3-0.8); MONOCYTES % (AUTO) 8.3 % (0.0-13.0); NEUTROPHILS # (AUTO) 15.2 x10^3/uL (2.2-4.8); NEUTROPHILS % (AUTO) 85.5 % (42.0-75.0); PLATELET COUNT 205 X10^3/uL (150.0-450.0); RED CELL DISTRIBUTION WIDTH 16.2 % (11.6-16.5); WHITE BLOOD COUNT 17.8 X10^3/uL (3.6-10.0)
[2019-06-20] MEDS: NS 1000 ML 1,000 ML IV SCH (05:56)
[2019-06-20 05:57] LABS: PLATELET MORPHOLOGY COMMENT NORMAL (NORMAL); TOXIC GRANULATION 1+
[2019-06-20 05:59] LABS: ALANINE AMINOTRANSFERASE 18 Units/L (12-78); ALBUMIN 2.3 g/dL (3.4-5.0); ALKALINE PHOSPHATASE 87 Units/L (46-116); AMYLASE 82 Units/L (25-115); ASPARTATE AMINO TRANSFERASE 23 Units/L (15-37); BLOOD UREA NITROGEN 11 mg/dL (7-18); CARBON DIOXIDE 26.5 mmol/L (21-32); CHLORIDE 104 mmol/L (98-107); COR CA(FOR HYPOALB) 9.4 mg/dL (8.5-10.1); COR NA(FOR HYPERGLY) 141 mmol/L (136-145); CREATININE 0.76 mg/dL (0.55-1.02); LIPASE 211 Units/L (73-393); SODIUM 140 mmol/L (136-145); TOTAL PROTEIN 6.5 g/dL (6.4-8.2); eGFR NON BLACK RACES > 60 (>60)
[2019-06-20] MEDS ORDERED: PHARMACY CONSULT - DOSE _____ XX SCH (07:00)
[2019-06-20] MEDS: PROVENTIL NEB TX 0.083% 2.5MG/ 3ML NEB SCH (08:06)
[2019-06-20] MEDS: PULMICORT NEB TX 0.5 MG NEB SCH (08:06)
[2019-06-20] MEDS ORDERED: ZOLOFT ONE (08:10)
[2019-06-20] MEDS: FLONASE NASAL SPRAY ENOSTRIL SCH (08:20)
[2019-06-20] MEDS: DEMADEX PO SCH (08:20)
[2019-06-20] MEDS: ZOLOFT PO SCH (08:21)
[2019-06-20] MEDS: SINGULAIR TAB 10 MG PO SCH (08:21)
[2019-06-20] MEDS: ROCEPHIN VIAL 1 GRAM IVP SCH (08:21)
[2019-06-20] MEDS: ZANTAC PO SCH (08:21)
[2019-06-20] MEDS: LOVENOX INJ 30 MG SYR SC SCH (08:22)
[2019-06-20] MEDS: WELCHOL PO SCH (08:22)
[2019-06-20] MEDS: MICRO K EXTEN CAP 10 MEQ PO SCH (08:22)
[2019-06-20] MEDS: SYNTHROID 100 mcg TAB PO SCH (08:30)
[2019-06-20] MEDS: DUONEB 0.5 MG/3 MG NEB SCH ×3 (08:58→16:17)
[2019-06-20] MEDS ORDERED: NS + KCL 40 MEQ/L 1,000 ML IV SCH (11:00)
[2019-06-20 16:43] VITALS: BP 146/98
== END 2019-06-20 20:25 | disposition home health service (06) | DRG 439 ==
LOC: ER 16:13 → MED/SURG 16:13
PROVIDERS: ADMIT Internal Medicine; ATTEND Obstetrics & Gynecology Obstetrics
DX: K21.9 Gastro-esophageal reflux disease without esophagitis; C34.90 Malignant neoplasm of unspecified part of unspecified bronchus or lung; Z79.899 Other long term (current) drug therapy; K86.1 Other chronic pancreatitis; R07.89 Other chest pain; Z92.21 Personal history of antineoplastic chemotherapy; R06.02 Shortness of breath; E11.65 Type 2 diabetes mellitus with hyperglycemia; K76.0 Fatty (change of) liver, not elsewhere classified; E03.8 Other specified hypothyroidism; I10 Essential (primary) hypertension; J44.9 Chronic obstructive pulmonary disease, unspecified; R40.0 Somnolence
CPT/HCPCS: 36415; 36600; 51702; 70450; 71010; 71045; 71275; 74000; 74018; 74176; 74177; 76705; 80053; 80307; 81001; 82140; 82150; 82550; 82553; 82803; 83690; 83735; 83880; 84132; 84484; 85025; 85378; 85610; 85730; 87040; 87070; 87077; 87086; 87186; 87205; 93005; 93306; 94640; 94760; 96365; 96367; 96374; 99284; A4222; G0378; G0434; J0696; J1170; J1650; J1815; J1940; J2310; J2550; J3480; J7030; J7613; J7620; J7626

== ENCOUNTER 2019-09-18 17:46 | Inpatient (IN) ==
--- NOTE | 2019-09-18 18:38 | DR.EXTPAIN ---
HPI Time seen Time Seen by Provider: 09/18/19 18:25 PCP Primary Care Physician: isabela goldsmith Complaint/Symptoms Chief Complaint Doctor Comments: A 64 y/o female revisiting the ED in few days. She presents with c/o epigastric pain that's been ongoing close to 4 weeks now. I had seen her here on 09/14/19 for same presentation, she elected to be d/c home then. She has a hx. of recurrent pancreatitis (recently hospitalized here) and her costochondritis dates back to 2014 by records review. The pain is worsened by meals or assuming the supine position. It relieves a bit with sitting upright. She has seen her PCP on a number of times recently for this c/o including before and after the ED visit of 09/14/19. Chief Complaint:: patient stated she just was discharged from the hospital with acute pancritis. pt stated her upper abd still hurts. Nurses notes reviewed Nurses Notes Review: Yes Source History Provided: Patient Mode of arrival Mode of Arrival: EMS Timing Onset of Chief Complaint: 09/16/19 Context History of: None Associated signs and symptoms Associated Signs and Symptoms: None PMH PMH Past Medical History: Yes Past Medical History: CHF, COPD, CVA, Diabetes, GERD, Hypertension and Hypothyroidism Past Surgical History: Yes Surgical History: Cholecystectomy, Hysterectomy, Ortho Surgery and Other Family History History of Family Medical Conditions: Yes Family Medical History: Diabetes Mellitus and Cancer Social History Does patient currently use any type of tobacco product: No Have you used tobacco products in the last 12 months: No Type of Tobacco Use: None Does any household member use tobacco: No Alcohol Use: None Do you use any recreational Drugs:: No Lives With: Family Lives Where: Home infectious screening In the last 2 months have you had wt loss of >10#?: NO Have you had fever, night sweats or hemotysis?: No Have you traveled outside the country in the last 6 months?: No Isolation: Standard ROS Review of Systems Constitutional: No Symptoms Reported Eyes: No Symptoms Reported ENTM: No Symptoms Reported Respiratoy: No Symptoms Reported Cardiovascular: No Symptoms Reported Gastrointestinal/Abdominal: Abdominal Pain Genitourinary: No Symptoms Reported Neurological: No Symptoms Reported Musculoskeletal: No Symptoms Reported Integumentary: No Symptoms Reported Hematologic/Lymphatic: No Symptoms Reported Endocrine: No Symptoms Reported Psychiatric: No Symptoms Reported PE Vital Signs Vitals: Temperature 99.1 F Pulse Rate 89 Respiratory Rate 18 Blood Pressure [Left Arm] 146/76 Blood Pressure [Right Arm] 105/50 Blood Pressure 95/61 O2 Sat by Pulse Oximetry 94 General Limitations: No Limitations General Appearance: Alert and In No Apparent Distress Head Head Exam: Normal Inspection, Atraumatic and Normocephalic Eyes Eye exam: Normal Appearance and EOMI ENT ENT Exam: Normal Exam, Normal Oropharynx and Mucous Membranes Moist Neck Neck Exam: Normal Inspection, Full ROM and Trachea Midline Chest Chest Inspection: Normal Inspection, Symmetric Chest Wall Rise and Tenderness (midline over both Lt. and Rt. costo-chondral junctions) Respiratory Respiratory Exam: Normal Lung Sounds Bilat; negative Accessory Muscle Use, Chest Wall Tenderness, Prolonged Expiratory Phase, Respiratory Distress and Stridor Cardiovascular Cardiovascular Exam: Regular Rate, Normal Rhythm, +S1 and +S2 Abdominal Exam Abdominal Exam: Normal Inspection, Normal Bowel Sounds, Soft and Tenderness Abdominal Tenderness: Epigastrium Extremities Extremities Exam: Normal Inspection and Full ROM Back Back Exam: Normal Inspection and Full ROM Neurological Neurological Exam: Alert and Oriented X3 Psychiatric Psychiatric Exam: Normal Affect and Normal Mood Skin Skin Exam: Dry and Normal Color COURSE Reevaluation 1st: Improved 2nd: Improved Consultation Consultation Comments: Pt's. presentation, clinical and radiographic findings were discussed with her PCP/on-call provider (Dr. Goldsmith), he agrees to her admission and care plan tentatively ordered Education/Counseling Education/Counseling: Patient, Education and Counseling Educated On: Treatment, Diagnosis, Prognosis and Needs for Follow Up ROR Labs Reviewed Laboratory Results Reviewed?: Yes Result Diagrams: 09/18/19 18:47 09/18/19 18:47 Laboratory: WBC 9.1 X10^3/uL (3.6-10.0) 09/18/19 18:47 RBC 4.27 X10^6/uL (3.5-5.4) 09/18/19 18:47 Hgb 12.6 g/dL (12.0-16.0) 09/18/19 18:47 Hct 38.1 % (36.0-47.0) 09/18/19 18:47 MCV 89.2 fL (80.0-100.0) 09/18/19 18:47 MCH 29.6 pg (27.0-34.0) 09/18/19 18:47 MCHC 33.1 g/dL (33.0-35.0) 09/18/19 18:47 RDW 16.2 % (11.6-16.5) 09/18/19 18:47 Plt Count 437 X10^3/uL (150.0-450.0) 09/18/19 18:47 MPV 7.1 fL (7.4-11.0) L 09/18/19 18:47 Neut % (Auto) 72.1 % (42.0-75.0) 09/18/19 18:47 Lymph % (Auto) 17.5 % (21.0-51.0) L 09/18/19 18:47 [place] % (Auto) 7.4 % (0.0-13.0) 09/18/19 18:47 Eos % (Auto) 2.1 % (0.9-2.9) 09/18/19 18:47 Baso % (Auto) 0.9 % (0.2-1.0) 09/18/19 18:47 Neut # (Auto) 6.5 x10^3/uL (2.2-4.8) H 09/18/19 18:47 Lymph # (Auto) 1.6 X10^3/uL (1.3-2.9) 09/18/19 18:47 [place] # (Auto) 0.7 x10^3/uL (0.3-0.8) 09/18/19 18:47 Eos # (Auto) 0.2 x10^3/uL (0.0-0.2) 09/18/19 18:47 Baso # (Auto) 0.1 X10^3/uL (0.0-0.1) 09/18/19 18:47 Absolute Nucleated RBC 0.0 /100WBC 09/18/19 18:47 Sodium 139 mmol/L (136-145) 09/18/19 18:47 Corrected Sodium 140 mmol/L (136-145) 09/18/19 18:47 Potassium 3.2 mmol/L (3.5-5.1) L 09/18/19 18:47 Chloride 102 mmol/L (98-107) 09/18/19 18:47 Carbon Dioxide 27.5 mmol/L (21-32) 09/18/19 18:47 BUN 9 mg/dL (7-18) 09/18/19 18:47 Creatinine 1.08 mg/dL (0.55-1.02) H 09/18/19 18:47 Est GFR (MDRD) Af Amer > 60 (>60) 09/18/19 18:47 Est GFR (MDRD) Non-Af 54 (>60) L 09/18/19 18:47 Glucose 135 mg/dL (65-99) H 09/18/19 18:47 Calcium 9.4 mg/dL (8.5-10.1) 09/18/19 18:47 Corrected Calcium 10.0 mg/dL (8.5-10.1) 09/18/19 18:47 Total Bilirubin 0.20 mg/dL (0.2-1.0) 09/18/19 18:47 AST 18 Units/L (15-37) 09/18/19 18:47 ALT 20 Units/L (12-78) 09/18/19 18:47 Alkaline Phosphatase 107 Units/L (46-116) 09/18/19 18:47 Total Protein 7.5 g/dL (6.4-8.2) 09/18/19 18:47 Albumin 3.2 g/dL (3.4-5.0) L 09/18/19 18:47 Globulin 4.3 g/dL (2.5-4.5) 09/18/19 18:47 Albumin/Globulin Ratio 0.7 Ratio (1.1-2.1) L 09/18/19 18:47 Amylase 345 Units/L (25-115) H 09/18/19 18:47 Lipase 3335 Units/L (73-393) H 09/18/19 18:47 Other Results Comments: Report of abdominal/pelvic CT Scan: Pancreatic pseudocyst; curvilinear cystic collection along the the anterior margin of the pancreas potentially represents an additional pseudocyst; however may represent sequel of pancreatic necrosis. lntlammatory change interposed between the pancreatic head and distal stomach with gastric wall thickening represents either sequel pancreatitis or a superimposed PUD/gastritis. No evidence of gastric outlet obstruction. Opioid Opioid Risk Tool Personal Hx of Substance Abuse: Prescription Drugs Age (Jorge box if 16-45): No History of Preadolescent Sexual Abuse: No Psychological Disease: Depression Total: 0 Total Score Risk Category: Low Risk Copyright: Jeremy BISHOP predicting aberrant behaviors Management Risks, benefits, and alternatives of opioids discussed: Yes Prescription drug monitoring program results: PDMP reviewed and no concerns identified Diagnosis Discharge Problem: Pancreatic pseudocyst Pancreatitis, acute Qualifiers: Pancreatitis type: idiopathic Acute pancreatitis complication: unspecified Qualified Code(s): K85.00 - Idiopathic acute pancreatitis without necrosis or infection Hypothyroidism Qualifiers: Hypothyroidism type: acquired Qualified Code(s): E03.9 - Hypothyroidism, unspecified Diabetes type 2, controlled Qualifiers: Diabetes mellitus custodial insulin use: without terminal makeup operator use Diabetes mellitus complication status: without complication Qualified Code(s): E11.9 - Type 2 diabetes mellitus without complications
[2019-09-18 18:57] LABS: BASOPHILS # (AUTO) 0.1 X10^3/uL (0.0-0.1); BASOPHILS % (AUTO) 0.9 % (0.2-1.0); EOSINOPHILS # (AUTO) 0.2 x10^3/uL (0.0-0.2); EOSINOPHILS % (AUTO) 2.1 % (0.9-2.9); HEMATOCRIT 38.1 % (36.0-47.0); HEMOGLOBIN 12.6 g/dL (12.0-16.0); LYMPHOCYTES # (AUTO) 1.6 X10^3/uL (1.3-2.9); LYMPHOCYTES % (AUTO) 17.5 % (21.0-51.0); MEAN CORPUSCULAR HEMOGLOBIN 29.6 pg (27.0-34.0); MEAN CORPUSCULAR HGB CONC 33.1 g/dL (33.0-35.0); MEAN CORPUSCULAR VOLUME 89.2 fL (80.0-100.0); MEAN PLATELET VOLUME 7.1 fL (7.4-11.0); MONOCYTES # (AUTO) 0.7 x10^3/uL (0.3-0.8); MONOCYTES % (AUTO) 7.4 % (0.0-13.0); NEUTROPHILS # (AUTO) 6.5 x10^3/uL (2.2-4.8); NEUTROPHILS % (AUTO) 72.1 % (42.0-75.0); PLATELET COUNT 437 X10^3/uL (150.0-450.0); RED BLOOD COUNT 4.27 X10^6/uL (3.5-5.4); RED CELL DISTRIBUTION WIDTH 16.2 % (11.6-16.5); WHITE BLOOD COUNT 9.1 X10^3/uL (3.6-10.0)
[2019-09-18 19:07] LABS: ALANINE AMINOTRANSFERASE 20 Units/L (12-78); ALBUMIN 3.2 g/dL (3.4-5.0); ALKALINE PHOSPHATASE 107 Units/L (46-116); AMYLASE 345 Units/L (25-115); ASPARTATE AMINO TRANSFERASE 18 Units/L (15-37); BLOOD UREA NITROGEN 9 mg/dL (7-18); CALCIUM 9.4 mg/dL (8.5-10.1); CARBON DIOXIDE 27.5 mmol/L (21-32); CHLORIDE 102 mmol/L (98-107); COR NA(FOR HYPERGLY) 140 mmol/L (136-145); CREATININE 1.08 mg/dL (0.55-1.02); SODIUM 139 mmol/L (136-145); TOTAL PROTEIN 7.5 g/dL (6.4-8.2); eGFR NON BLACK RACES 54 (>60)
[2019-09-18 19:22] LABS: LIPASE 3335 Units/L (73-393)
[2019-09-18] MEDS ORDERED: ZOFRAN INJ 4 MG VIAL IVP ONE (19:56)
[2019-09-18] MEDS ORDERED: NS 100 ML IV 100 ML IV ONE (19:57)
[2019-09-18] MEDS ORDERED: ZOFRAN INJ 4 MG VIAL ONE (19:57)
--- NOTE | 2019-09-18 20:36 | CT ---
CT abdomen and pelvis with contrast Indication: Severe abdominal pain Comparison: 06/17/2019 Technique: Multiple axial images of the abdomen and pelvis were obtained from the lung bases to the pubic symphysis after the administration of IV contrast. Coronal and sagittal reformatted images were also provided. Dose reduction techniques including automated exposure control (AEC) and adjustment of mA and kV were utilized. Findings: The lung bases are clear. No focal hepatic lesion. Gallbladder is absent. The spleen is normal. Since previous examination there is developed a large pseudocyst at the tail the pancreas measuring approximately 10.0 by 6.4 cm on axial image 21. Cystic collection along the course of the anterior margin of the pancreas measures 10.0 cm in greatest dimension on axial image 30. Ill-defined fluid is noted interposed between the pancreatic head and lesser curvature of the stomach representing either sequela previous pancreatitis or reactive edema in the setting of gastritis/peptic ulcer disease. SMA, SMV and portal vein are patent. Adrenal glands are normal. The right kidney demonstrates no evidence of nephrolithiasis, hydronephrosis or mass. There is mild scarring within the right kidney with a few tiny cortical based cysts. Left kidney also demonstrates a few cortical based cysts and scarring without nephrolithiasis, hydronephrosis or mass. Upper GI tract demonstrates mass effect on the proximal stomach from the above described pseudo cyst along with thickening of the gastric pylorus/antrum. There is no evidence of obstruction. Urinary bladder is normal. No pelvic or adnexal mass. The rectum is normal. A few distal colonic diverticula are noted without evidence of acute diverticulitis. Remaining colon is otherwise normal. The appendix is normal. No pelvic free fluid. Abdominal aorta is normal in caliber with scattered calcified atherosclerotic disease. There is a stent noted within the left common iliac vein which remains patent. [place] retroperitoneal and mesenteric lymph nodes are noted. Review of bone windows demonstrates no acute osseous abnormality. Impression: 1.Since prior examination there has been interval development of a large pseudocyst adjacent to the pancreatic tail measuring 10.0 x 6.4 cm causing mass effect on the proximal stomach. 2.Curvilinear cystic collection along the anterior margin of the pancreas potentially represents an additional pseudocyst; however may represent sequela of pancreatic necrosis. 3.Inflammatory change interposed between the pancreatic head and distal stomach with gastric and pyloric wall thickening represents either sequela of pancreatitis or a superimposed peptic ulcer disease/gastritis. No evidence of gastric outlet obstruction. 4.Both kidneys demonstrate mild cortical scarring and cyst without nephrolithiasis, hydronephrosis or mass. 5.Distal colonic diverticulosis without evidence of acute diverticulitis. 6.Additional incidental, nonacute findings as described above Reported By:
[2019-09-18] MEDS ORDERED: NUBAIN INJ 10 IVP ONE (21:19)
[2019-09-18] MEDS ORDERED: NUBAIN INJ 10 ONE (21:30)
[2019-09-18] MEDS: NS 1000 ML 1,000 ML IV SCH (21:39)
[2019-09-18] MEDS ORDERED: PROVENTIL NEB TX 0.083% 2.5MG/ 3ML NEB PRN (22:28)
[2019-09-18] MEDS ORDERED: NITROSTAT SL PRN ×2 (22:28→23:03)
[2019-09-19 00:38] VITALS: BMI 29.9
[2019-09-19] MEDS: NUBAIN INJ 10 IVP PRN ×3 (05:05→21:16)
[2019-09-19 05:37] LABS: BASOPHILS # (AUTO) 0.1 X10^3/uL (0.0-0.1); BASOPHILS % (AUTO) 0.8 % (0.2-1.0); EOSINOPHILS # (AUTO) 0.3 x10^3/uL (0.0-0.2); EOSINOPHILS % (AUTO) 3.5 % (0.9-2.9); HEMATOCRIT 34.7 % (36.0-47.0); HEMOGLOBIN 11.4 g/dL (12.0-16.0); LYMPHOCYTES # (AUTO) 1.6 X10^3/uL (1.3-2.9); LYMPHOCYTES % (AUTO) 20.3 % (21.0-51.0); MEAN CORPUSCULAR HEMOGLOBIN 29.6 pg (27.0-34.0); MEAN CORPUSCULAR HGB CONC 32.7 g/dL (33.0-35.0); MEAN CORPUSCULAR VOLUME 90.5 fL (80.0-100.0); MEAN PLATELET VOLUME 7.9 fL (7.4-11.0); MONOCYTES # (AUTO) 0.7 x10^3/uL (0.3-0.8); MONOCYTES % (AUTO) 9.5 % (0.0-13.0); NEUTROPHILS # (AUTO) 5.1 x10^3/uL (2.2-4.8); NEUTROPHILS % (AUTO) 65.9 % (42.0-75.0); PLATELET COUNT 390 X10^3/uL (150.0-450.0); RED BLOOD COUNT 3.84 X10^6/uL (3.5-5.4); RED CELL DISTRIBUTION WIDTH 16.1 % (11.6-16.5); WHITE BLOOD COUNT 7.7 X10^3/uL (3.6-10.0)
[2019-09-19 05:45] LABS: ALANINE AMINOTRANSFERASE 19 Units/L (12-78); ALBUMIN 2.7 g/dL (3.4-5.0); ALKALINE PHOSPHATASE 91 Units/L (46-116); AMYLASE 208 Units/L (25-115); ASPARTATE AMINO TRANSFERASE 18 Units/L (15-37); BLOOD UREA NITROGEN 7 mg/dL (7-18); CALCIUM 8.5 mg/dL (8.5-10.1); CARBON DIOXIDE 25.8 mmol/L (21-32); CHLORIDE 107 mmol/L (98-107); COR CA(FOR HYPOALB) 9.5 mg/dL (8.5-10.1); CREATININE 0.98 mg/dL (0.55-1.02); LIPASE 1285 Units/L (73-393); SODIUM 141 mmol/L (136-145); TOTAL PROTEIN 6.6 g/dL (6.4-8.2); eGFR NON BLACK RACES > 60 (>60)
[2019-09-19] MEDS: NS 1000 ML 1,000 ML IV SCH ×3 (06:26→21:10)
[2019-09-19] MEDS ORDERED: PATIENT'S HOME MEDICATION (Ranitidine Hcl 150 MG) PO SCH (09:00)
[2019-09-19] MEDS ORDERED: TIOTROPIUM IN SCH (09:00)
[2019-09-19] MEDS ORDERED: FLONASE NASAL SPRAY ENOSTRIL SCH (09:00)
[2019-09-19] MEDS ORDERED: SPIRIVA HANDIHALER (30 DOSE) IN SCH (09:00)
[2019-09-19] MEDS ORDERED: ADVAIR DISKUS 250/50 IN SCH (09:00)
[2019-09-19] MEDS ORDERED: PATIENT'S HOME MEDICATION (Fluticasone-Salmeterol 250/50 1 PUFF) IN SCH (09:00)
[2019-09-19] MEDS ORDERED: ZESTRIL TAB 40 MG PO ONE (09:00)
[2019-09-19] MEDS: FLONASE NASAL SPRAY ENOSTRIL SCH (09:45)
[2019-09-19] MEDS: SYNTHROID 100 mcg TAB PO SCH (09:46)
[2019-09-19] MEDS: PROTONIX INJ 40 MG VIAL IVP SCH (09:46)
[2019-09-19] MEDS: MICRO K EXTEN CAP 10 MEQ PO SCH (09:46)
[2019-09-19] MEDS: ZANTAC PO SCH ×2 (09:46→21:12)
[2019-09-20] MEDS: COMPAZINE INJ IVP PRN (04:15)
[2019-09-20 05:19] LABS: BASOPHILS # (AUTO) 0.1 X10^3/uL (0.0-0.1); BASOPHILS % (AUTO) 1.2 % (0.2-1.0); EOSINOPHILS # (AUTO) 0.3 x10^3/uL (0.0-0.2); EOSINOPHILS % (AUTO) 4.4 % (0.9-2.9); HEMATOCRIT 34.7 % (36.0-47.0); HEMOGLOBIN 11.3 g/dL (12.0-16.0); LYMPHOCYTES % (AUTO) 26.8 % (21.0-51.0); MEAN CORPUSCULAR HEMOGLOBIN 29.4 pg (27.0-34.0); MEAN CORPUSCULAR HGB CONC 32.6 g/dL (33.0-35.0); MEAN CORPUSCULAR VOLUME 90.1 fL (80.0-100.0); MEAN PLATELET VOLUME 7.8 fL (7.4-11.0); MONOCYTES # (AUTO) 0.6 x10^3/uL (0.3-0.8); NEUTROPHILS # (AUTO) 4.4 x10^3/uL (2.2-4.8); NEUTROPHILS % (AUTO) 59.6 % (42.0-75.0); PLATELET COUNT 402 X10^3/uL (150.0-450.0); RED BLOOD COUNT 3.85 X10^6/uL (3.5-5.4); RED CELL DISTRIBUTION WIDTH 16.8 % (11.6-16.5); WHITE BLOOD COUNT 7.4 X10^3/uL (3.6-10.0)
[2019-09-20] MEDS: NS 1000 ML 1,000 ML IV SCH ×3 (05:19→20:37)
[2019-09-20 05:31] LABS: ALANINE AMINOTRANSFERASE 22 Units/L (12-78); ALBUMIN 2.7 g/dL (3.4-5.0); ALKALINE PHOSPHATASE 95 Units/L (46-116); AMYLASE 157 Units/L (25-115); ASPARTATE AMINO TRANSFERASE 21 Units/L (15-37); BLOOD UREA NITROGEN 6 mg/dL (7-18); CALCIUM 8.5 mg/dL (8.5-10.1); CARBON DIOXIDE 25.4 mmol/L (21-32); CHLORIDE 112 mmol/L (98-107); COR CA(FOR HYPOALB) 9.5 mg/dL (8.5-10.1); CREATININE 0.85 mg/dL (0.55-1.02); LIPASE 1276 Units/L (73-393); SODIUM 146 mmol/L (136-145); TOTAL PROTEIN 6.5 g/dL (6.4-8.2); eGFR NON BLACK RACES > 60 (>60)
[2019-09-20] MEDS: ZANTAC PO SCH ×2 (09:01→20:37)
[2019-09-20] MEDS: MICRO K EXTEN CAP 10 MEQ PO SCH (09:01)
[2019-09-20] MEDS: FLONASE NASAL SPRAY ENOSTRIL SCH (09:02)
[2019-09-20] MEDS: PROTONIX INJ 40 MG VIAL IVP SCH (09:02)
[2019-09-20] MEDS: SYNTHROID 100 mcg TAB PO SCH (09:02)
[2019-09-20] MEDS: NUBAIN INJ 10 IVP PRN ×2 (12:59→20:36)
[2019-09-21] MEDS: NS 1000 ML 1,000 ML IV SCH ×5 (01:47→23:01)
[2019-09-21 05:14] LABS: AMYLASE 217 Units/L (25-115)
[2019-09-21 05:15] LABS: LIPASE 1694 Units/L (73-393)
[2019-09-21] MEDS: NUBAIN INJ 10 IVP PRN ×3 (05:46→19:00)
[2019-09-21] MEDS ORDERED: PULMICORT NEB TX 0.5 MG NEB ONE (09:01)
[2019-09-21] MEDS: DUONEB 0.5 MG/3 MG NEB SCH ×2 (09:03→20:08)
[2019-09-21] MEDS: PULMICORT NEB TX 0.5 MG NEB SCH ×2 (09:03→20:08)
[2019-09-21] MEDS: FLONASE NASAL SPRAY ENOSTRIL SCH (09:26)
[2019-09-21] MEDS: SYNTHROID 100 mcg TAB PO SCH (09:27)
[2019-09-21] MEDS: ZANTAC PO SCH ×2 (09:27→21:09)
[2019-09-21] MEDS: PROTONIX INJ 40 MG VIAL IVP SCH (09:27)
[2019-09-21] MEDS: MICRO K EXTEN CAP 10 MEQ PO SCH (09:27)
[2019-09-21] MEDS: COMPAZINE INJ IVP PRN (13:12)
[2019-09-22 05:16] LABS: BASOPHILS # (AUTO) 0.1 X10^3/uL (0.0-0.1); BASOPHILS % (AUTO) 0.8 % (0.2-1.0); EOSINOPHILS # (AUTO) 0.3 x10^3/uL (0.0-0.2); EOSINOPHILS % (AUTO) 4.4 % (0.9-2.9); HEMATOCRIT 34.7 % (36.0-47.0); HEMOGLOBIN 11.2 g/dL (12.0-16.0); LYMPHOCYTES # (AUTO) 1.3 X10^3/uL (1.3-2.9); LYMPHOCYTES % (AUTO) 20.1 % (21.0-51.0); MEAN CORPUSCULAR HEMOGLOBIN 28.8 pg (27.0-34.0); MEAN CORPUSCULAR HGB CONC 32.4 g/dL (33.0-35.0); MEAN PLATELET VOLUME 7.5 fL (7.4-11.0); MONOCYTES # (AUTO) 0.6 x10^3/uL (0.3-0.8); MONOCYTES % (AUTO) 9.5 % (0.0-13.0); NEUTROPHILS # (AUTO) 4.3 x10^3/uL (2.2-4.8); NEUTROPHILS % (AUTO) 65.2 % (42.0-75.0); PLATELET COUNT 394 X10^3/uL (150.0-450.0); RED CELL DISTRIBUTION WIDTH 16.5 % (11.6-16.5); WHITE BLOOD COUNT 6.6 X10^3/uL (3.6-10.0)
[2019-09-22 05:30] LABS: ALANINE AMINOTRANSFERASE 17 Units/L (12-78); ALBUMIN 2.5 g/dL (3.4-5.0); ALKALINE PHOSPHATASE 95 Units/L (46-116); AMYLASE 212 Units/L (25-115); ASPARTATE AMINO TRANSFERASE 18 Units/L (15-37); BLOOD UREA NITROGEN 3 mg/dL (7-18); CALCIUM 8.1 mg/dL (8.5-10.1); CARBON DIOXIDE 18.6 mmol/L (21-32); CHLORIDE 107 mmol/L (98-107); COR CA(FOR HYPOALB) 9.3 mg/dL (8.5-10.1); CREATININE 0.65 mg/dL (0.55-1.02); LIPASE 1127 Units/L (73-393); SODIUM 140 mmol/L (136-145); TOTAL PROTEIN 6.2 g/dL (6.4-8.2); eGFR NON BLACK RACES > 60 (>60)
[2019-09-22] MEDS: NS 1000 ML 1,000 ML IV SCH ×3 (05:39→21:04)
[2019-09-22] MEDS: NUBAIN INJ 10 IVP PRN ×3 (07:12→21:04)
[2019-09-22] MEDS: PROTONIX INJ 40 MG VIAL IVP SCH (08:38)
[2019-09-22] MEDS: MICRO K EXTEN CAP 10 MEQ PO SCH (08:38)
[2019-09-22] MEDS: SYNTHROID 100 mcg TAB PO SCH (08:38)
[2019-09-22] MEDS: ZANTAC PO SCH ×2 (08:38→21:03)
[2019-09-22] MEDS: FLONASE NASAL SPRAY ENOSTRIL SCH (08:41)
[2019-09-22] MEDS: DUONEB 0.5 MG/3 MG NEB SCH ×2 (09:14→21:05)
[2019-09-22] MEDS: PULMICORT NEB TX 0.5 MG NEB SCH ×2 (09:21→21:05)
[2019-09-23 05:28] LABS: AMYLASE 242 Units/L (25-115)
[2019-09-23] MEDS: NS 1000 ML 1,000 ML IV SCH (05:36)
[2019-09-23 05:38] LABS: LIPASE 2669 Units/L (73-393)
[2019-09-23] MEDS: ZANTAC PO SCH (09:05)
[2019-09-23] MEDS: MICRO K EXTEN CAP 10 MEQ PO SCH (09:05)
[2019-09-23] MEDS: SYNTHROID 100 mcg TAB PO SCH (09:06)
[2019-09-23] MEDS: PROTONIX INJ 40 MG VIAL IVP SCH (09:06)
[2019-09-23] MEDS ORDERED: POTASSIUM CHLORIDE LIQ 20 MEQ UDC ONE (09:10)
[2019-09-23] MEDS ORDERED: POTASSIUM CHLORIDE LIQ 20 MEQ UDC PO ONE (09:12)
[2019-09-23] MEDS: FLONASE NASAL SPRAY ENOSTRIL SCH (09:16)
[2019-09-23] MEDS: PULMICORT NEB TX 0.5 MG NEB SCH (10:03)
[2019-09-23] MEDS: DUONEB 0.5 MG/3 MG NEB SCH (10:03)
[2019-09-23 12:19] VITALS: BP 164/78
[2019-09-23] MEDS ORDERED: NORCO 7.5/325 MG TAB ONE (12:28)
[2019-09-23] MEDS ORDERED: NORCO 7.5/325 MG TAB PO ONE (12:31)
== END 2019-09-23 13:10 | disposition home or self-care (01) | DRG 439 ==
LOC: ER 17:47 → MED/SURG 22:23
PROVIDERS: ADMIT Obstetrics & Gynecology Obstetrics; ATTEND Obstetrics & Gynecology Obstetrics
DX: K86.3 Pseudocyst of pancreas; E03.8 Other specified hypothyroidism; K86.1 Other chronic pancreatitis; Z79.899 Other long term (current) drug therapy; R94.4 Abnormal results of kidney function studies; R10.31 Right lower quadrant pain; E11.65 Type 2 diabetes mellitus with hyperglycemia
CPT/HCPCS: 36415; 74177; 80053; 82150; 83690; 84132; 85025; 94640; 94760; 96365; 96367; 96374; 96375; 99284; A4222; C9113; J0780; J2300; J2405; J7030; J7050; J7620; J7626

== ENCOUNTER 2020-02-15 20:35 | Observation (INO) ==
--- NOTE | 2020-02-15 20:55 | DR.GENAD ---
HPI Time Seen Time Seen by Provider: 02/15/20 20:54 PCP Primary Care Physician: chris HPI Comment HPI Comment: 64 yo f w/ pmh of chronic pancreatitis (on tpn, follows with [facility] at [facility]), lung ca, type 2 dm, tia, htn, naz, copd presents w/ generalized weak ness. Generalized malaise/ fatigue. + n/v x 2 of nb/nb emesis a/w worsening of chronic upper abd/ epigastric area pain. No CP, cough, SOB, diarrhea/ stool changes, urianry sx's. + decreased oral intake. No focal numbness/ weakness. Complaint/Symptoms Chief Complaint:: Dizziness, faint Source History Provided: Patient and EMS Mode of Arrival Mode of Arrival: EMS Timing Onset of Chief Complaint: 02/15/20 PMH PMH Past Medical History: Yes Past Medical History: CHF, COPD, CVA, Diabetes, GERD, Hypertension and Hypothyroidism Past Surgical History: Yes Surgical History: Cholecystectomy, Hysterectomy and Ortho Surgery Family History History of Family Medical Conditions: Yes Family Medical History: Diabetes Mellitus and Cancer Social History Does patient currently use any type of tobacco product: No Have you used tobacco products in the last 12 months: No Type of Tobacco Use: None Does any household member use tobacco: No Alcohol Use: None Do you use any recreational Drugs:: No Lives With: Family Lives Where: Home Infectious screening In the last 2 months have you had wt loss of >10#?: NO Have you had fever, night sweats or hemotysis?: No Have you traveled outside the country in the last 6 months?: No Isolation: Standard ROS Review of Systems Constitutional: Malaise, Weakness and Fatigue; negative Chills and Fever Eyes: No Symptoms Reported ENTM: No Symptoms Reported Respiratoy: No Symptoms Reported Cardiovascular: No Symptoms Reported Gastrointestinal/Abdominal: Abdominal Pain, Nausea and Vomiting; negative Constipation and Diarrhea Genitourinary: No Symptoms Reported Neurological: No Symptoms Reported Musculoskeletal: No Symptoms Reported Integumentary: No Symptoms Reported Hematologic/Lymphatic: No Symptoms Reported Endocrine: No Symptoms Reported Psychiatric: No Symptoms Reported All Other Systems: Reviewed and Negative PE Vital Signs Vitals: Temperature 97.9 F Pulse Rate [Left] 83 Pulse Rate 89 Respiratory Rate 18 Blood Pressure [Right Arm] 107/54 Blood Pressure 107/54 O2 Sat by Pulse Oximetry 97 General Limitations: No Limitations General Appearance: Alert and In No Apparent Distress Head Head Exam: Normal Inspection Eyes Eye exam: Normal Appearance ENT ENT Exam: Normal Exam External Ear Exam: Normal External Inspection TM/Canal Exam: Bilateral: Normal Nose Exam: Normal Nose Exam Mouth Exam: Normal Inspection Throat Exam: Normal Inspection Neck Neck Exam: Normal Inspection Chest Chest Inspection: Normal Inspection Respiratory Respiratory Exam: Normal Lung Sounds Bilat Respiratory Exam: Bilateral: Clear to Auscultation Cardiovascular Cardiovascular Exam: Regular Rate and Normal Rhythm Abdominal Exam Abdominal Exam: Normal Bowel Sounds, Tenderness (epigastric area ) and Guarding; negative Distention and Rigidity Extremities Extremities Exam: Normal Inspection Back Back Exam: Normal Inspection Neurologic Neurological Exam: Alert, Oriented X3 and CN II-XII Intact; negative Motor Sensory Deficit Psychiatric Psychiatric Exam: Normal Affect and Normal Mood Skin Skin Exam: Warm, Dry, Intact and Normal Color MDM Differential Diagnosis Differential Diagnosis: pancreatitis, mi, uti, cva/ tia COURSE Treatment Treatment: 64 yo f w/ prev hx of chronic pancreatitis on tpn presents w/ abd pain and n/v. Epigastric tenderness on exam, no peritoneal signs. Afebrile. No leukocytosis. IVF's begun, antiemetics given w/ improvement of sx's. Lipase in 1700's. During ED course patient had brief episode of LOC w/ noted tonic/ clonic seizure activity. resolved w/o intervention. Given 1 mg Ativan. no prev hx of seizures in past. Demorol held and never given. Loaded with fosphophenotoin. d/w Dr Nath, whom agrees to admit. [facility] Labs Reviewed Laboratory Results Reviewed?: Yes Result Diagrams: 02/15/20 21:07 02/15/20 21:07 Laboratory: WBC 8.6 X10^3/uL (3.6-10.0) 02/15/20 21:07 RBC 3.83 X10^6/uL (3.5-5.4) 02/15/20 21:07 Hgb 10.2 g/dL (12.0-16.0) L 02/15/20 21:07 Hct 31.3 % (36.0-47.0) L 02/15/20 21:07 MCV 81.9 fL (80.0-100.0) 02/15/20 21:07 MCH 26.6 pg (27.0-34.0) L 02/15/20 21:07 MCHC 32.5 g/dL (33.0-35.0) L 02/15/20 21:07 RDW 16.8 % (11.6-16.5) H 02/15/20 21:07 Plt Count 323 X10^3/uL (150.0-450.0) 02/15/20 21:07 MPV 8.5 fL (7.4-11.0) 02/15/20 21:07 Neut % (Auto) 64.6 % (42.0-75.0) 02/15/20 21:07 Lymph % (Auto) 22.6 % (21.0-51.0) 02/15/20 21:07 [place] % (Auto) 9.2 % (0.0-13.0) 02/15/20 21:07 Eos % (Auto) 2.5 % (0.9-2.9) 02/15/20 21:07 Baso % (Auto) 1.1 % (0.2-1.0) H 02/15/20 21:07 Neut # (Auto) 5.5 x10^3/uL (2.2-4.8) H 02/15/20 21:07 Lymph # (Auto) 1.9 X10^3/uL (1.3-2.9) 02/15/20 21:07 [place] # (Auto) 0.8 x10^3/uL (0.3-0.8) 02/15/20 21:07 Eos # (Auto) 0.2 x10^3/uL (0.0-0.2) 02/15/20 21:07 Baso # (Auto) 0.1 X10^3/uL (0.0-0.1) 02/15/20 21:07 Absolute Nucleated RBC 0.0 /100WBC 02/15/20 21:07 Sodium 141 mmol/L (136-145) 02/15/20 21:07 Corrected Sodium 142 mmol/L (136-145) 02/15/20 21:07 Potassium 3.2 mmol/L (3.5-5.1) L 02/15/20 21:07 Chloride 106 mmol/L (98-107) 02/15/20 21:07 Carbon Dioxide 26.9 mmol/L (21-32) 02/15/20 21:07 BUN 22 mg/dL (7-18) H 02/15/20 21:07 Creatinine 0.94 mg/dL (0.55-1.02) 02/15/20 21:07 Est GFR (MDRD) Af Amer > 60 (>60) 02/15/20 21:07 Est GFR (MDRD) Non-Af > 60 (>60) 02/15/20 21:07 Glucose 134 mg/dL (65-99) H 02/15/20 21:07 Calcium 9.0 mg/dL (8.5-10.1) 02/15/20 21:07 Troponin I < 0.02 ng/mL (0-1.5) 02/15/20 21: Lipase 1769 Units/L (73-393) H 02/15/20 21:07 Specimen Type Clean catch urine 02/15/20 21:20 Urine Color Yellow (YELLOW) 02/15/20 21:20 Urine Appearance Clear (CLEAR) 02/15/20 21:20 Urine pH 7.0 (5.0 - 8.0) 02/15/20 21:20 Ur Specific [place] 1.010 (1.000-1.030) 02/15/20 21:20 Urine Protein Negative (NEGATIVE) 02/15/20 21:20 Urine Glucose (UA) Negative (NEGATIVE) 02/15/20 21:20 Urine Ketones Negative (NEGATIVE) 02/15/20 21:20 Urine Occult Blood Negative (NEGATIVE) 02/15/20 21:20 Urine Nitrite Negative (NEGATIVE) 02/15/20 21:20 Urine Bilirubin Negative (NEGATIVE) 02/15/20 21:20 Urine Urobilinogen Normal (NORMAL) 02/15/20 21:20 Ur Leukocyte Esterase Negative (NEGATIVE) 02/15/20 21:20 XRAY XRAY Interpreted by: Radiologist X-ray Results: ct head w/o any acute intracranial pathology or bleed., EKG Compared to prior EKG Dated: 08/31/19 Rate: 87 [place]: Normal Rhythm: NSR Block: None ST: Nonsp (unchanged from last ekg on file ) Opioid Opioid Risk Tool Personal Hx of Substance Abuse: Prescription Drugs Age (Jorge box if 16-45): No History of Preadolescent Sexual Abuse: No Psychological Disease: Depression Total: 0 Total Score Risk Category: Low Risk Copyright: Jeremy BISHOP predicting aberrant behaviors Diagnosis Discharge Problem: Seizure Acute pancreatitis Qualifiers: Pancreatitis type: idiopathic Acute pancreatitis complication: unspecified Qualified Code(s): K85.00 - Idiopathic acute pancreatitis without necrosis or infection Instructions Forms: Excuse From Work Precautions for COVID19 Social Distancing
[2020-02-15 21:17] LABS: BASOPHILS # (AUTO) 0.1 X10^3/uL (0.0-0.1); BASOPHILS % (AUTO) 1.1 % (0.2-1.0); EOSINOPHILS # (AUTO) 0.2 x10^3/uL (0.0-0.2); EOSINOPHILS % (AUTO) 2.5 % (0.9-2.9); HEMATOCRIT 31.3 % (36.0-47.0); HEMOGLOBIN 10.2 g/dL (12.0-16.0); LYMPHOCYTES # (AUTO) 1.9 X10^3/uL (1.3-2.9); LYMPHOCYTES % (AUTO) 22.6 % (21.0-51.0); MEAN CORPUSCULAR HEMOGLOBIN 26.6 pg (27.0-34.0); MEAN CORPUSCULAR HGB CONC 32.5 g/dL (33.0-35.0); MEAN CORPUSCULAR VOLUME 81.9 fL (80.0-100.0); MEAN PLATELET VOLUME 8.5 fL (7.4-11.0); MONOCYTES # (AUTO) 0.8 x10^3/uL (0.3-0.8); MONOCYTES % (AUTO) 9.2 % (0.0-13.0); NEUTROPHILS # (AUTO) 5.5 x10^3/uL (2.2-4.8); NEUTROPHILS % (AUTO) 64.6 % (42.0-75.0); PLATELET COUNT 323 X10^3/uL (150.0-450.0); RED BLOOD COUNT 3.83 X10^6/uL (3.5-5.4); RED CELL DISTRIBUTION WIDTH 16.8 % (11.6-16.5); WHITE BLOOD COUNT 8.6 X10^3/uL (3.6-10.0)
[2020-02-15 21:28] LABS: BILIRUBIN,URINE NEGATIVE (NEGATIVE); BLOOD/HEMOGLOBIN,URINE NEGATIVE (NEGATIVE); GLUCOSE, URINE NEGATIVE (NEGATIVE); KETONES,URINE NEGATIVE (NEGATIVE); LEUKOCYTE ESTERASE ,URINE NEGATIVE (NEGATIVE); NITRITES,URINE NEGATIVE (NEGATIVE); PROTEIN,URINE NEGATIVE (NEGATIVE); UROBILINOGEN,URINE NORMAL (NORMAL)
[2020-02-15 21:29] LABS: BLOOD UREA NITROGEN 22 mg/dL (7-18); CARBON DIOXIDE 26.9 mmol/L (21-32); CHLORIDE 106 mmol/L (98-107); COR NA(FOR HYPERGLY) 142 mmol/L (136-145); CREATININE 0.94 mg/dL (0.55-1.02); SODIUM 141 mmol/L (136-145); TROPONIN I < 0.02 ng/mL (0-1.5); eGFR NON BLACK RACES > 60 (>60)
[2020-02-15 21:31] LABS: LIPASE 1769 Units/L (73-393)
[2020-02-15 21:31] LABS: APPEARANCE,URINE CLEAR (CLEAR); COLOR,URINE YELLOW (YELLOW)
[2020-02-15] MEDS ORDERED: ZOFRAN INJ 4 MG VIAL IVP ONE (21:55)
[2020-02-15] MEDS ORDERED: DEMEROL INJ IVP ONE (21:57)
[2020-02-15] MEDS ORDERED: NS 1000 ML 1,000 ML ONE (22:30)
[2020-02-15] MEDS ORDERED: ZOFRAN INJ 4 MG VIAL ONE (22:30)
[2020-02-15] MEDS ORDERED: DEMEROL INJ ONE (22:30)
[2020-02-15] MEDS ORDERED: ATIVAN INJ 2 MG VIAL ONE (22:43)
[2020-02-15] MEDS ORDERED: ATIVAN INJ 2 MG VIAL IVP ONE (22:54)
[2020-02-15] MEDS: NS 1000 ML 1,000 ML IV ONE ×2 (22:55→22:56)
--- NOTE | 2020-02-15 22:59 | CT ---
STUDY: CT HEAD WITHOUT IV CONTRASTCOMPARISON: NoneTECHNIQUE: axial images were acquired of the head without IV contrast. Coronal and sagittal images were provided. All images were reviewed in a variety of windows and levels.RADIATION REDUCTION TECHNIQUE: Automated exposure control, Adjustment of the mA and/or kV according to patient size, or iterative reconstruction techniques were used.HISTORY: Weakness/dizzinessFINDINGS:There is no evidence of an acute intracranial bleed.There is no evidence of a mass or midline shift.There is no evidence of an extra-axial fluid collection.The escoto-white matter differentiation is within normal limits.The visualized bones are unremarkable.The visualized sinuses are clear.The mastoid air cells are well-aerated.IMPRESSION:THERE IS NO EVIDENCE OF AN ACUTE INTRACRANIAL BLEEDElectronically signed by: Hansel Richardson (Feb 15, 2020 22:58:23)
[2020-02-16] MEDS ORDERED: NS 1000 ML 1,000 ML ONE (00:11)
[2020-02-16] MEDS ORDERED: CEREBYX INJ ONE (00:12)
[2020-02-16] MEDS ORDERED: NS 100 ML IV 100 ML IV ONE (00:13)
[2020-02-16] MEDS: CEREBYX INJ IVP ONE ×2 (00:18→02:13)
[2020-02-16] MEDS ORDERED: ZOFRAN INJ 4 MG VIAL IVP PRN (00:32)
--- NOTE | 2020-02-16 02:09 | RAD ---
STUDY: FRONTAL VIEW CHESTCOMPARISON: June 18, 2019HISTORY: WEAKNESSFINDINGS:Right IJ central line is seen with tip over the distal SVC near the right atrial junction region.Subsegmental atelectasis is noted.No focal consolidation is seen.The heart size is within normal limits.The mediastinum is unremarkable.There is no evidence of pleural effusion or gross pneumothorax.The trachea is midline.IMPRESSION:1. No focal consolidation is seen.2. The heart size is normal.Electronically signed by: Hansel Richardson (Feb 16, 2020 02:07:49)
[2020-02-16] MEDS: NS 1000 ML 1,000 ML IV SCH ×3 (02:14→10:50)
[2020-02-16 05:32] VITALS: BMI 28.3
[2020-02-16 06:00] LABS: BASOPHILS # (AUTO) 0.1 X10^3/uL (0.0-0.1); BASOPHILS % (AUTO) 1.1 % (0.2-1.0); EOSINOPHILS # (AUTO) 0.1 x10^3/uL (0.0-0.2); EOSINOPHILS % (AUTO) 1.3 % (0.9-2.9); HEMATOCRIT 29.5 % (36.0-47.0); HEMOGLOBIN 9.5 g/dL (12.0-16.0); LYMPHOCYTES # (AUTO) 1.9 X10^3/uL (1.3-2.9); LYMPHOCYTES % (AUTO) 21.8 % (21.0-51.0); MEAN CORPUSCULAR HEMOGLOBIN 26.7 pg (27.0-34.0); MEAN CORPUSCULAR HGB CONC 32.2 g/dL (33.0-35.0); MEAN CORPUSCULAR VOLUME 82.9 fL (80.0-100.0); MEAN PLATELET VOLUME 8.9 fL (7.4-11.0); MONOCYTES # (AUTO) 0.7 x10^3/uL (0.3-0.8); MONOCYTES % (AUTO) 7.8 % (0.0-13.0); PLATELET COUNT 282 X10^3/uL (150.0-450.0); RED BLOOD COUNT 3.56 X10^6/uL (3.5-5.4); RED CELL DISTRIBUTION WIDTH 16.3 % (11.6-16.5); WHITE BLOOD COUNT 8.8 X10^3/uL (3.6-10.0)
[2020-02-16 06:37] LABS: ALANINE AMINOTRANSFERASE 16 Units/L (12-78); ALBUMIN 2.7 g/dL (3.4-5.0); ALKALINE PHOSPHATASE 110 Units/L (46-116); ASPARTATE AMINO TRANSFERASE 16 Units/L (15-37); BLOOD UREA NITROGEN 16 mg/dL (7-18); CALCIUM 8.7 mg/dL (8.5-10.1); CARBON DIOXIDE 23.4 mmol/L (21-32); CHLORIDE 109 mmol/L (98-107); COR CA(FOR HYPOALB) 9.7 mg/dL (8.5-10.1); COR NA(FOR HYPERGLY) 143 mmol/L (136-145); SODIUM 142 mmol/L (136-145); TOTAL PROTEIN 6.6 g/dL (6.4-8.2); eGFR NON BLACK RACES > 60 (>60)
[2020-02-16] MEDS ORDERED: SYNTHROID 100 mcg TAB PO SCH (09:00)
[2020-02-16] MEDS ORDERED: ASPIRIN EC 81 MG PO SCH (09:00)
[2020-02-16] MEDS ORDERED: SINGULAIR TAB 10 MG PO SCH (09:00)
[2020-02-16 11:59] VITALS: BP 117/58
[2020-02-16] MEDS ORDERED: LIPITOR TAB 20 MG PO SCH (21:00)
[2020-02-16] MEDS ORDERED: PEPCID TAB 20 MG PO SCH (21:00)
== END 2020-02-16 12:45 | disposition home health service (06) ==
LOC: ER 20:35 → OBS 02-16 00:32 → INTOOBSV 02-16 00:32 → MED/SURG 02-16 01:32
PROVIDERS: ADMIT Family Medicine; ATTEND Obstetrics & Gynecology Obstetrics
DX: R94.31 Abnormal electrocardiogram [ECG] [EKG]; R53.1 Weakness; E11.65 Type 2 diabetes mellitus with hyperglycemia; K21.9 Gastro-esophageal reflux disease without esophagitis; G40.89 Other seizures; R11.2 Nausea with vomiting, unspecified; K86.1 Other chronic pancreatitis; Z79.899 Other long term (current) drug therapy; I10 Essential (primary) hypertension; E03.8 Other specified hypothyroidism; J44.9 Chronic obstructive pulmonary disease, unspecified

== ENCOUNTER 2020-02-17 10:15 | Inpatient (IN) ==
--- NOTE | 2020-02-17 11:04 | DR.NAUSEAF ---
HPI - Time Seen Time seen: 10:30 - HPI Comment HPI Comment: patient brought in by EMS for vomiting, confusion. Discharged from this hospital yesterday after treatment for pancreatitis and TPN treatment. - Reviewed Nurses Notes Reviewed: Yes - Source History Provided: Patient, EMS - Mode of Arrival Mode of Arrival: Stretcher - Timing Onset of Chief Complaint: 02/17/20 - Context Onset: Spontaneous Recent: None History of: None - Quality Quality: Food Particles - Associated Signs and Symptoms Abdominal Pain Quality: Aching Abdominal Pain Location: Epigastric Symptoms: Abdominal Pain PMH - PMH Past Medical History: Hypertension, Diabetes, Hypothyroidism, CVA, COPD, GERD, CHF Past Surgical History: Yes Surgical History: Cholecystectomy, Hysterectomy, Ortho Surgery, Other - Family History Family Medical History: Diabetes Mellitus, Cancer - Social History Do you use any recreational Drugs:: No ROS - Review of Systems Constitutional: No Symptoms Reported Eyes: No Symptoms Reported ENTM: No Symptoms Reported Respiratoy: No Symptoms Reported Cardiovascular: No Symptoms Reported Gastrointestinal/Abdominal: Abdominal Pain, Nausea, Vomiting Genitourinary: No Symptoms Reported Neurological: No Symptoms Reported Musculoskeletal: No Symptoms Reported Integumentary: No Symptoms Reported Hematologic/Lymphatic: No Symptoms Reported Psychiatric: No Symptoms Reported All Other Systems: Reviewed and Negative PE - General Limitations: No Limitations General Appearance: Alert, In No Apparent Distress - Head Head Exam: Normal Inspection - Eyes Eye exam: Normal Appearance, EOMI - ENT ENT Exam: Normal Exam - Neck Neck Exam: Normal Inspection, Full ROM, Trachea Midline - Chest Chest Inspection: Normal Inspection - Respiratory Respiratory Exam: Normal Lung Sounds Bilat Respiratory Exam: Bilateral Clear to Auscultation - Cardiovascular Cardiovascular Exam: Regular Rate - Abdominal Exam Abdominal Exam: Normal Inspection, Normal Bowel Sounds, Soft. negative: Distention, Guarding - Rectal Rectal Exam: Deferred - External Exam: Female: Deferred : Speculum Exam (Female): Deferred : Bimanual Exam (female): Deferred - Extremities Extremities Exam: Normal Inspection, Full ROM, Tenderness - Back Back Exam: Normal Inspection, Full ROM - Neurologic Neurological Exam: Alert (but occasional confusion), Oriented X3, CN II-XII Intact - Psychiatric Psychiatric Exam: Depressed - Skin Skin Exam: Intact, Normal Color - Vital Signs Vitals: Temperature 98.6 F Pulse Rate 97 Respiratory Rate 17 Blood Pressure [Right Arm] 117/58 Blood Pressure 126/59 O2 Sat by Pulse Oximetry 100 Course - Treatment Treatment: 1415: vomiting,dry heaving persist, will place in observation - Consultation Called: 13:10 Call Returned: 13:19 Consultation Comments: case discussed with DR. Ko can admit if nausea persist after IVF. ROR - Labs Reviewed Result Diagrams: 02/17/20 11:22 02/17/20 11:22 - XRAY XRAY Interpreted by: Radiologist - EKG Rate: 89 (no STEMI) [place]: Normal Rhythm: NSR Block: None ST: Nonsp - Labs Reviewed Laboratory: WBC 16.5 X10^3/uL (3.6-10.0) H 02/17/20 11:22 RBC 3.92 X10^6/uL (3.5-5.4) 02/17/20 11:22 Hgb 10.4 g/dL (12.0-16.0) L 02/17/20 11:22 Hct 32.4 % (36.0-47.0) L 02/17/20 11:22 MCV 82.6 fL (80.0-100.0) 02/17/20 11:22 MCH 26.4 pg (27.0-34.0) L 02/17/20 11:22 MCHC 31.9 g/dL (33.0-35.0) L 02/17/20 11:22 RDW 16.4 % (11.6-16.5) 02/17/20 11:22 Plt Count 310 X10^3/uL (150.0-450.0) 02/17/20 11:22 MPV 8.5 fL (7.4-11.0) 02/17/20 11:22 Neut % (Auto) 80.8 % (42.0-75.0) H 02/17/20 11:22 Lymph % (Auto) 10.5 % (21.0-51.0) L 02/17/20 11:22 [place] % (Auto) 6.7 % (0.0-13.0) 02/17/20 11:22 Eos % (Auto) 1.1 % (0.9-2.9) 02/17/20 11:22 Baso % (Auto) 0.9 % (0.2-1.0) 02/17/20 11:22 Neut # (Auto) 13.3 x10^3/uL (2.2-4.8) H 02/17/20 11:22 Lymph # (Auto) 1.7 X10^3/uL (1.3-2.9) 02/17/20 11:22 [place] # (Auto) 1.1 x10^3/uL (0.3-0.8) H 02/17/20 11:22 Eos # (Auto) 0.2 x10^3/uL (0.0-0.2) 02/17/20 11:22 Baso # (Auto) 0.1 X10^3/uL (0.0-0.1) 02/17/20 11:22 Absolute Nucleated RBC 0.0 /100WBC 02/17/20 11:22 Sodium 139 mmol/L (136-145) 02/17/20 11:22 Corrected Sodium 140 mmol/L (136-145) 02/17/20 11:22 Potassium 3.3 mmol/L (3.5-5.1) L 02/17/20 11:22 Chloride 106 mmol/L (98-107) 02/17/20 11:22 Carbon Dioxide 24.1 mmol/L (21-32) 02/17/20 11:22 BUN 10 mg/dL (7-18) 02/17/20 11:22 Creatinine 0.99 mg/dL (0.55-1.02) 02/17/20 11:22 Est GFR (MDRD) Af Amer > 60 (>60) 02/17/20 11:22 Est GFR (MDRD) Non-Af 60 (>60) 02/17/20 11:22 Glucose 131 mg/dL (65-99) H 02/17/20 11:22 Calcium 9.0 mg/dL (8.5-10.1) 02/17/20 11:22 Corrected Calcium 10.0 mg/dL (8.5-10.1) 02/17/20 11:22 Total Bilirubin 0.60 mg/dL (0.2-1.0) 02/17/20 11:22 AST 17 Units/L (15-37) 02/17/20 11:22 ALT 14 Units/L (12-78) 02/17/20 11:22 Alkaline Phosphatase 110 Units/L (46-116) 02/17/20 11:22 Total Protein 6.9 g/dL (6.4-8.2) 02/17/20 11:22 Albumin 2.7 g/dL (3.4-5.0) L 02/17/20 11:22 Globulin 4.2 g/dL (2.5-4.5) 02/17/20 11:22 Albumin/Globulin Ratio 0.6 Ratio (1.1-2.1) L 02/17/20 11:22 Amylase 197 Units/L (25-115) H 02/17/20 11:22 Lipase 1674 Units/L (73-393) H 02/17/20 11:22 - XRAY Xray Findings: AAS: IMPRESSION 1. [No acute cardiopulmonary disease.] 2. [No evidence for acute abdominal pathology identified.] Status post cholecystecto (CHAR GORDON) Opioid - Opioid Risk Tool Age (Char box if 16-45): No History of Preadolescent Sexual Abuse: No Total: 0 Total Score Risk Category: Low Risk - Diagnosis Discharge Problem: Hypokalemia Pancreatitis, acute Qualifiers: Pancreatitis type: unspecified pancreatitis type Acute pancreatitis complication: unspecified Qualified Code(s): K85.90 - Acute pancreatitis without necrosis or infection, unspecified - Discharge Plan Condition: Stable - Follow ups/Referrals Follow ups/Referrals: SAWYER KO [Primary Care Provider] - 3 days - Instructions
[2020-02-17] MEDS ORDERED: ZOFRAN INJ 4 MG VIAL IVP ONE ×3 (11:07→14:49)
[2020-02-17] MEDS ORDERED: NS 500 ML IV 1,000 ML IV ONE ×2 (11:07→14:51)
--- NOTE | 2020-02-17 11:29 | RAD ---
HISTORYABD PAIN, NAUSEA/VOMITING HTN, COPD, DM, CHF, CVA HYSTERECTOMY, ORTHO, CHOLECYSTECTOMYSTUDYACUTE ABDOMEN SERIESCOMPARISONChest film June 18, 2019 and kv June 16, 2019FINDINGSThe trachea is midline. The cardiac silhouette is [unremarkable]. Surgical clips are seen in the left axilla. A right sided internal jugular central venous catheters in place. [The lungs are clear without focal mass or consolidation. There is no effusion or pneumothorax.] [The bony thorax is unremarkable].Flat plate and upright evaluation of the abdomen demonstrates a [normal bowel gas pattern]. There is no pneumoperitoneum. No pathological soft tissue mass or calcification can be observed. A vascular stent is seen in the left common iliac region. The bony structures are grossly intact. Surgical clips are seen the right upper quadrant probably from cholecystectomy.IMPRESSION1. [No acute cardiopulmonary disease.]2. [No evidence for acute abdominal pathology identified.] Status post cholecystectomy.Electronically signed by: YANELY CACERES (Feb 17, 2020 11:28:02)
[2020-02-17 11:32] LABS: BASOPHILS # (AUTO) 0.1 X10^3/uL (0.0-0.1); BASOPHILS % (AUTO) 0.9 % (0.2-1.0); EOSINOPHILS # (AUTO) 0.2 x10^3/uL (0.0-0.2); EOSINOPHILS % (AUTO) 1.1 % (0.9-2.9); HEMATOCRIT 32.4 % (36.0-47.0); HEMOGLOBIN 10.4 g/dL (12.0-16.0); LYMPHOCYTES # (AUTO) 1.7 X10^3/uL (1.3-2.9); LYMPHOCYTES % (AUTO) 10.5 % (21.0-51.0); MEAN CORPUSCULAR HEMOGLOBIN 26.4 pg (27.0-34.0); MEAN CORPUSCULAR HGB CONC 31.9 g/dL (33.0-35.0); MEAN CORPUSCULAR VOLUME 82.6 fL (80.0-100.0); MEAN PLATELET VOLUME 8.5 fL (7.4-11.0); MONOCYTES # (AUTO) 1.1 x10^3/uL (0.3-0.8); MONOCYTES % (AUTO) 6.7 % (0.0-13.0); NEUTROPHILS # (AUTO) 13.3 x10^3/uL (2.2-4.8); NEUTROPHILS % (AUTO) 80.8 % (42.0-75.0); PLATELET COUNT 310 X10^3/uL (150.0-450.0); RED BLOOD COUNT 3.92 X10^6/uL (3.5-5.4); RED CELL DISTRIBUTION WIDTH 16.4 % (11.6-16.5); WHITE BLOOD COUNT 16.5 X10^3/uL (3.6-10.0)
[2020-02-17 11:41] LABS: ALANINE AMINOTRANSFERASE 14 Units/L (12-78); ALBUMIN 2.7 g/dL (3.4-5.0); ALKALINE PHOSPHATASE 110 Units/L (46-116); ASPARTATE AMINO TRANSFERASE 17 Units/L (15-37); BLOOD UREA NITROGEN 10 mg/dL (7-18); CARBON DIOXIDE 24.1 mmol/L (21-32); CHLORIDE 106 mmol/L (98-107); COR NA(FOR HYPERGLY) 140 mmol/L (136-145); CREATININE 0.99 mg/dL (0.55-1.02); SODIUM 139 mmol/L (136-145); TOTAL PROTEIN 6.9 g/dL (6.4-8.2); eGFR NON BLACK RACES 60 (>60)
[2020-02-17 11:42] LABS: LIPASE 1674 Units/L (73-393)
[2020-02-17] MEDS ORDERED: NS 1000 ML 1,000 ML ONE (11:57)
[2020-02-17] MEDS ORDERED: ZOFRAN INJ 4 MG VIAL ONE ×2 (11:58→13:36)
[2020-02-17] MEDS ORDERED: K-DUR TAB 20 MEQ PO ONE (13:03)
[2020-02-17 18:09] VITALS: BMI 28.3
[2020-02-17] MEDS ORDERED: PROVENTIL NEB TX 0.083% 2.5MG/ 3ML NEB PRN (18:09)
[2020-02-17] MEDS: ZOFRAN INJ 4 MG VIAL IVP PRN (19:36)
[2020-02-17] MEDS ORDERED: NORCO 5/325 MG TAB PO ONE (22:22)
[2020-02-17] MEDS ORDERED: PHENERGAN INJ 25 MG IM ONE ×2 (22:22→22:24)
[2020-02-17] MEDS ORDERED: NORCO 5/325 MG TAB ONE (22:24)
[2020-02-17] MEDS: TOPAMAX TAB 100 MG PO SCH (23:21)
[2020-02-18] MEDS: SYNTHROID 100 mcg TAB PO SCH ×2 (06:07→09:32)
[2020-02-18] MEDS ORDERED: ZOLOFT PO ONE (07:22)
[2020-02-18] MEDS: ZOLOFT PO SCH ×2 (09:31→09:32)
[2020-02-18] MEDS: ZOFRAN INJ 4 MG VIAL IVP PRN (09:32)
[2020-02-18] MEDS: TOPAMAX TAB 100 MG PO SCH ×2 (09:32→20:55)
[2020-02-18] MEDS ORDERED: PHENERGAN INJ 25 MG IM PRN (10:07)
[2020-02-18] MEDS ORDERED: PHENERGAN INJ 25 MG IM ONE (10:10)
[2020-02-18] MEDS: SINEquan PO SCH ×2 (10:21→20:54)
[2020-02-18] MEDS: LOVENOX INJ 40 MG SYR SC SCH (13:04)
[2020-02-18] MEDS: XANAX PO PRN (13:18)
--- NOTE | 2020-02-18 13:37 | CT ---
HISTORYAbdominal pain. History of lung cancer.STUDYABDOMEN/PELVIS WITH CONCOMPARISONCT dated 10/13/2019, 09/18/2019 and 06/17/2019. MR abdomen dated 11/22/2019.TECHNIQUEMultiple axial images of the abdomen and pelvis were obtained from the lung bases to the pubic symphysis after the administration of IV contrast. Dose reduction techniques including Automated Exposure Control (AEC) and adjustment of mA and kV were utilized.FINDINGSIncluded portions of the lung bases are clear. The gallbladder is surgically absent. There has been an interval increase in size of the previously reported predominantly cystic lesion arising from the body of the pancreas which measures approximately 8.1 x 9.5 x 7.9 cm in AP, transverse and craniocaudal dimensions, respectfully. There is a more dense area within the inferior aspect of the cystic lesion similar to the comparison MR which measures 3 cm in diameter and may reflect old hemorrhagic material or debris, although a solid component cannot be entirely excluded. The lesion results in a mass effect on adjacent structures including the stomach were there is associated gastric wall thickening and mild inflammatory change. A separate 3-4 cm fluid collection is present inferior to the stomach and larger fluid collection (image 41 series 4 and image 15 series 6). There is mass effect on the splenic vein which is opacified with contrast. The superior mesenteric vein and portal vein are patent as well. The pancreatic head and neck, as well as, the pancreatic tail demonstrates normal enhancement without pancreatic ductal dilatation. There is mild stranding and small amount of free fluid within the left upper quadrant of the abdomen. There are several enlarged retroperitoneal/periaortic lymph nodes which may be reactive. The liver, spleen, adrenal glands and kidneys are grossly unchanged with a few small renal cysts noted bilaterally. Scattered areas of cortical renal scarring are noted bilaterally as well. The urinary bladder is incompletely distended and not optimally evaluated. There is a small amount of free fluid within the dependent portions of the pelvis. The appendix is normal. There are a few scattered descending and sigmoid diverticula without evidence of acute diverticulitis. There is no small bowel dilatation. There is no intraperitoneal free air. There is atherosclerotic disease of the nonaneurysmal abdominal aorta. Stent graft is present within the common iliac vein on the right. There is multilevel degenerative disc disease of the lumbar spine most notable at L2-L3.IMPRESSION1. Interval enlargement of the previously reported predominately cystic lesion arising from the body of the pancreas which now measures 9-10 cm in diameter. There is a more dense appearing area within the lesion which may reflect old hemorrhagic material or debris, although a solid component cannot be excluded. Whether findings reflect recurrent pancreatitis and enlargement of a pseudocyst or a more aggressive process such as malignancy is uncertain, although the former is favored.2. There is mass effect of the cystic lesion on adjacent structures including the stomach and splenic vein with associated wall thickening and mild stranding of the gastric wall noted. GI consultation is recommended if not already obtained given the overall findings and interval change.3. Small amount of free fluid within the left upper quadrant of the abdomen and dependent portions of the pelvis.4. Additional findings as above.Electronically signed by: CAROL SALMERON (Feb 18, 2020 13:35:17)
[2020-02-18] MEDS: DILAUDID INJ IVP PRN (18:32)
[2020-02-18] MEDS: PEPCID TAB 20 MG PO SCH (20:55)
[2020-02-19] MEDS: DILAUDID INJ IVP PRN ×3 (00:49→21:34)
[2020-02-19] MEDS: ZOFRAN INJ 4 MG VIAL IVP PRN ×2 (00:49→21:34)
[2020-02-19 05:49] LABS: BASOPHILS # (AUTO) 0.1 X10^3/uL (0.0-0.1); BASOPHILS % (AUTO) 0.8 % (0.2-1.0); EOSINOPHILS # (AUTO) 0.1 x10^3/uL (0.0-0.2); EOSINOPHILS % (AUTO) 0.5 % (0.9-2.9); HEMATOCRIT 30.9 % (36.0-47.0); HEMOGLOBIN 10.1 g/dL (12.0-16.0); LYMPHOCYTES # (AUTO) 1.7 X10^3/uL (1.3-2.9); LYMPHOCYTES % (AUTO) 11.8 % (21.0-51.0); MEAN CORPUSCULAR HEMOGLOBIN 26.9 pg (27.0-34.0); MEAN CORPUSCULAR HGB CONC 32.8 g/dL (33.0-35.0); MEAN CORPUSCULAR VOLUME 82.2 fL (80.0-100.0); MEAN PLATELET VOLUME 9.5 fL (7.4-11.0); MONOCYTES # (AUTO) 1.5 x10^3/uL (0.3-0.8); MONOCYTES % (AUTO) 10.3 % (0.0-13.0); NEUTROPHILS # (AUTO) 10.8 x10^3/uL (2.2-4.8); NEUTROPHILS % (AUTO) 76.6 % (42.0-75.0); PLATELET COUNT 299 X10^3/uL (150.0-450.0); RED BLOOD COUNT 3.76 X10^6/uL (3.5-5.4); RED CELL DISTRIBUTION WIDTH 16.6 % (11.6-16.5); WHITE BLOOD COUNT 14.1 X10^3/uL (3.6-10.0)
[2020-02-19 06:06] LABS: ALANINE AMINOTRANSFERASE 13 Units/L (12-78); ALBUMIN 2.5 g/dL (3.4-5.0); ALKALINE PHOSPHATASE 95 Units/L (46-116); ASPARTATE AMINO TRANSFERASE 13 Units/L (15-37); BLOOD UREA NITROGEN 11 mg/dL (7-18); CALCIUM 8.7 mg/dL (8.5-10.1); CARBON DIOXIDE 20.6 mmol/L (21-32); CHLORIDE 105 mmol/L (98-107); COR CA(FOR HYPOALB) 9.9 mg/dL (8.5-10.1); CREATININE 1.06 mg/dL (0.55-1.02); SODIUM 140 mmol/L (136-145); TOTAL PROTEIN 7.2 g/dL (6.4-8.2); eGFR NON BLACK RACES 55 (>60)
[2020-02-19] MEDS ORDERED: KLOR-CON PO PRN (07:49)
[2020-02-19] MEDS ORDERED: K-RIDER 10 MEQ/NS 100 ML 10 MEQ/100 ML BAG IV PRN (07:49)
[2020-02-19] MEDS ORDERED: MICRO K EXTEN CAP 10 MEQ PO PRN (07:49)
[2020-02-19] MEDS ORDERED: POTASSIUM CHL 60 MEQ/NS 0.45% 500 ML IV PRN (07:49)
[2020-02-19] MEDS ORDERED: POTASSIUM CHL 40 MEQ/NS 0.45% 500 ML IV PRN (07:49)
[2020-02-19] MEDS ORDERED: POTASSIUM CHLORIDE LIQ 20 MEQ UDC PO PRN (07:49)
[2020-02-19] MEDS ORDERED: K-DUR TAB 20 MEQ PO PRN (07:49)
[2020-02-19] MEDS ORDERED: ZOLOFT PO ONE (08:34)
[2020-02-19] MEDS: SYNTHROID 100 mcg TAB PO SCH (08:50)
[2020-02-19] MEDS: SINEquan PO SCH ×2 (08:50→21:07)
[2020-02-19] MEDS: XANAX PO PRN (08:50)
[2020-02-19] MEDS: ZOLOFT PO SCH ×2 (08:50)
[2020-02-19] MEDS: FLAGYL IV PREMIX 500 MG BAG 500 MG/100 ML BAG IV SCH ×4 (08:50→21:00)
[2020-02-19] MEDS: TOPAMAX TAB 100 MG PO SCH ×2 (08:50→21:00)
[2020-02-19] MEDS ORDERED: NS 500 ML IV 500 ML IV ONE (08:51)
[2020-02-19] MEDS: LOVENOX INJ 40 MG SYR SC SCH (09:53)
[2020-02-19] MEDS: MERREM VIAL 500 MG in NS 100 ML IV + SPIKE MINIBAG* 100 ML IV SCH ×3 (09:55→21:00)
[2020-02-19] MEDS: MAGNESIUM SULFATE 1 GRAM/100 mL PREMIX 1 GM/100 ML BAG IV PRN ×2 (10:30→12:34)
[2020-02-19] MEDS: LR 1000 ML IV 1,000 ML IV SCH ×2 (12:12→21:08)
[2020-02-19 15:09] LABS: BILIRUBIN,URINE NEGATIVE (NEGATIVE); BLOOD/HEMOGLOBIN,URINE 1+ (NEGATIVE); GLUCOSE, URINE NEGATIVE (NEGATIVE); KETONES,URINE 3+ (NEGATIVE); LEUKOCYTE ESTERASE ,URINE 2+ (NEGATIVE); NITRITES,URINE NEGATIVE (NEGATIVE); PROTEIN,URINE 2+ (NEGATIVE); UROBILINOGEN,URINE NORMAL (NORMAL)
[2020-02-19 15:11] LABS: APPEARANCE,URINE CLOUDY (CLEAR); COLOR,URINE YELLOW (YELLOW)
[2020-02-19 15:17] LABS: AMORPHOUS SEDIMENT,UR 1+ /HPF (NEGATIVE); BACTERIA,URINE 2+ /HPF (NEGATIVE); MUCUS,URINE FEW /HPF (NEGATIVE); SQUAMOUS EPITHELIAL CELL,UR MANY /HPF (NEGATIVE)
[2020-02-19] MEDS: PEPCID TAB 20 MG PO SCH (20:59)
[2020-02-20] MEDS: LR 1000 ML IV 1,000 ML IV SCH ×3 (01:58→14:20)
[2020-02-20] MEDS: DILAUDID INJ IVP PRN ×3 (02:08→19:25)
[2020-02-20] MEDS: FLAGYL IV PREMIX 500 MG BAG 500 MG/100 ML BAG IV SCH ×3 (02:08→15:07)
[2020-02-20] MEDS: MERREM VIAL 500 MG in NS 100 ML IV + SPIKE MINIBAG* 100 ML IV SCH ×2 (05:24→14:13)
[2020-02-20 05:38] LABS: BASOPHILS # (AUTO) 0.1 X10^3/uL (0.0-0.1); BASOPHILS % (AUTO) 0.8 % (0.2-1.0); EOSINOPHILS # (AUTO) 0.2 x10^3/uL (0.0-0.2); HEMATOCRIT 25.9 % (36.0-47.0); HEMOGLOBIN 8.6 g/dL (12.0-16.0); LYMPHOCYTES # (AUTO) 1.3 X10^3/uL (1.3-2.9); MEAN CORPUSCULAR HEMOGLOBIN 27.4 pg (27.0-34.0); MEAN CORPUSCULAR VOLUME 82.9 fL (80.0-100.0); MEAN PLATELET VOLUME 9.4 fL (7.4-11.0); MONOCYTES # (AUTO) 0.8 x10^3/uL (0.3-0.8); MONOCYTES % (AUTO) 8.9 % (0.0-13.0); NEUTROPHILS # (AUTO) 6.8 x10^3/uL (2.2-4.8); NEUTROPHILS % (AUTO) 74.3 % (42.0-75.0); PLATELET COUNT 274 X10^3/uL (150.0-450.0); RED BLOOD COUNT 3.12 X10^6/uL (3.5-5.4); RED CELL DISTRIBUTION WIDTH 16.4 % (11.6-16.5); WHITE BLOOD COUNT 9.1 X10^3/uL (3.6-10.0)
[2020-02-20 05:51] LABS: ALANINE AMINOTRANSFERASE 10 Units/L (12-78); ALBUMIN 2.2 g/dL (3.4-5.0); ALKALINE PHOSPHATASE 80 Units/L (46-116); ASPARTATE AMINO TRANSFERASE 16 Units/L (15-37); BLOOD UREA NITROGEN 11 mg/dL (7-18); CALCIUM 8.3 mg/dL (8.5-10.1); CARBON DIOXIDE 23.3 mmol/L (21-32); CHLORIDE 107 mmol/L (98-107); COR CA(FOR HYPOALB) 9.7 mg/dL (8.5-10.1); CREATININE 0.85 mg/dL (0.55-1.02); MAGNESIUM 1.9 mg/dL (1.7-2.9); SODIUM 140 mmol/L (136-145); TOTAL PROTEIN 6.5 g/dL (6.4-8.2); eGFR NON BLACK RACES > 60 (>60)
[2020-02-20] MEDS ORDERED: ZOLOFT PO ONE (08:35)
[2020-02-20] MEDS: LOVENOX INJ 40 MG SYR SC SCH (08:45)
[2020-02-20] MEDS: ZOLOFT PO SCH ×2 (08:45)
[2020-02-20] MEDS: TOPAMAX TAB 100 MG PO SCH (08:45)
[2020-02-20] MEDS: XANAX PO PRN (08:45)
[2020-02-20] MEDS: SYNTHROID 100 mcg TAB PO SCH (08:45)
[2020-02-20] MEDS: SINEquan PO SCH (08:45)
[2020-02-20] MEDS ORDERED: SINEquan PO SCH ×2 (10:00→21:00)
[2020-02-20] MEDS: MAGNESIUM SULFATE 1 GRAM/100 mL PREMIX 1 GM/100 ML BAG IV PRN ×2 (10:06→11:55)
[2020-02-20 16:06] VITALS: BP 95/47
[2020-02-20] MEDS: ZOFRAN INJ 4 MG VIAL IVP PRN (19:27)
== END 2020-02-20 19:20 | disposition home or self-care (01) | DRG 440 ==
LOC: MED/SURG 10:15 → ER 10:15 → MED/SURG 16:30
PROVIDERS: ADMIT Obstetrics & Gynecology Obstetrics; ATTEND Obstetrics & Gynecology Obstetrics
DX: I10 Essential (primary) hypertension; R11.2 Nausea with vomiting, unspecified; K21.9 Gastro-esophageal reflux disease without esophagitis; E03.8 Other specified hypothyroidism; K85.90 Acute pancreatitis without necrosis or infection, unspecified; R94.31 Abnormal electrocardiogram [ECG] [EKG]; J44.9 Chronic obstructive pulmonary disease, unspecified; E87.6 Hypokalemia; E11.65 Type 2 diabetes mellitus with hyperglycemia; R10.84 Generalized abdominal pain